=== PATIENT | female | born 1940 | race Caucasian/White ===

== ENCOUNTER 2020-09-16 21:13 | Inpatient (IN) | payer MEDICARE, SELFPAY ==
[2020-09-16] VITALS (10 sets, daily range): BP systolic 133–170; BP diastolic 62–72; PULSE 75–85; RESP 12–31; TEMP 36.7–36.9; O2SAT 95–97
--- NOTE | ~2020-09-16 | US_ITS ---
EXAMINATION: US venous doppler [facility] DATE: 09/18/2020 15:30 INDICATION: Chest pain. TECHNIQUE: Grayscale ultrasound images without and with compression and Doppler ultrasound images of the bilateral lower extremity veins were obtained. COMPARISON: None. FINDINGS: The visualized portions of right common femoral vein, profunda (deep) femoral vein, femoral vein, pop liteal vein, peroneal veins, posterior tibial veins, and greater saphenous vein outflow are patent. The visualized portions of left common femoral vein, profunda femoral vein, femoral vein, popliteal v ein, peroneal veins, posterior tibial veins, and greater saphenous vein outflow are patent. IMPRESSION: 1. No deep venous thrombosis. Reviewed, dictated and finalized at location A. E ASSOCIATE
--- NOTE | ~2020-09-16 | CT_ITS ---
EXAMINATION: CTA chest PE protocol DATE: 09/17/2020 14:19 PATROL INSPECTOR INDICATION: Shortness of breath TECHNIQUE: Computed tomographic angiography (CTA) of the chest was performed with 100 mL Omnipaque-35 0 intravenous contrast. The dose-length product was 202.61 mGy-cm. Maximum intensity projection 3D-re constructions of the aorta and other arteries were constructed by the technologist on a separate work station. COMPARISON: No prior studies for comparison. . FINDINGS: There is pulmonary embolism of right lower lobe segmental and subsegmental pulmonary arteri es, small thrombus burden. Study is technically adequate. There is atherosclerosis. No thoracic lymph adenopathy. Heart size is normal. Small right pleural effusion. Cardiomegaly. There is peripheral wed ge-shaped consolidation at the pleural surface of the right lower lobe, consistent with pulmonary inf arct. There is lingular and left upper lobe atelectasis. Upper abdomen is unremarkable. Moderate thor acic spondylosis with chronic wedge compression deformity of the midthoracic vertebra. IMPRESSION: 1. Segmental and subsegmental pulmonary embolism of the right lower lobe with pulmonary infarction of the lateral basal segment, small thrombus burden. 2: Small pleural effusion. Dr. Glen Schaefer discussed with the patient's nurse Loren on third medical floor at 09/17/2020 14:22 PATROL INSPECTOR. Reviewed, dictated and finalized at location A. OL INSPECTOR IMPRESSION: 1. Segmental and subsegmental pulmonary embolism of the right lower lobe with p ulmonary infarction of the lateral basal segment, small thrombus burden. 2: Small pleural effusion. Dr. Glen Schaefer discussed with the patient's nurse Loren on third medical floor at 09/17/2020 14:22 PATROL INSPECTOR.
--- NOTE | ~2020-09-16 | CT_ITS ---
EXAMINATION: CT abdomen pelvis w con EXAM DATE: 09/16/2020 22:51 INDICATION: Right quadrant pain TECHNIQUE: Spiral CT of the abdomen and pelvis was performed following intravenous injection of 100 m L Omnipaque 350. Axial, coronal and sagittal images were reviewed. The dose-length product (DLP) fo r this examination was 357.76 mGy-cm. The exposure was tailored according to patient size (auto mA e xposure control), and iterative reconstruction (ASIR) was used as additional dose reduction technique . Comparison is made to prior examination from 07/24/2019. FINDINGS: The 1.5 cm splenic hypodensity unchanged compared to prior study, benign. The liver, splee n, adrenal glands and pancreas are otherwise unremarkable. Gallbladder is unremarkable. No biliary obstruction. Portal and splenic veins are patent. Kidneys enhance symmetrically. There is no hydro nephrosis. The uterus is not identified and has likely been surgically resected. The bladder is un remarkable. There is no retroperitoneal or pelvic lymphadenopathy. There is mild scattered arterio sclerotic disease. The appendix is normal. Small duodenal diverticulum. There is expected amount of colonic stool. N o free intraperitoneal gas. The heart is normal in size. There are no pericardial or pleural effus ions. There is subsegmental right lower lobe acute airspace disease, appearance most consistent with pneumonia. Left basilar subsegmental atelectasis. There are no osteoblastic or osteolytic lesions i dentified. The L5-S1 vertebral bodies are fused in grade 2 anterolisthesis with chronic bilateral L5 spondylolysis. IMPRESSION: 1. Right lower lobe subsegmental pneumonia. Appearance most consistent with bacterial etiology but pl ease clinically correlate. 2. Chronic findings. Reviewed, dictated and finalized at location A. FORCEMENT MAKER IMPRESSION: 1. Right lower lobe subsegmental pneumonia. Appearance most consistent with samuel terial etiology but please clinically correlate. 2. Chronic findings.
--- NOTE | ~2020-09-16 | XR_ITS ---
XR chest 1V portable 09/17/2020 00:43 Indication: Pleuritic chest pain Procedure: AP portable chest Comparison: Comparison to multiple prior studies sequentially, with oldest reviewed study dated 12/28. Findings: Heart size normal. There is dextroscoliosis of the thoracic spine. There are bibasilar infi ltrates which may represent atelectasis or developing pneumonia. No acute osseous abnormality. Impression: 1: Bibasilar infiltrates, atelectasis versus pneumonia. Reviewed, dictated and finalized at location A. BULANCE DRIVER PARAMEDIC Impression: 1: Bibasilar infiltrates, atelectasis versus pneumonia.
--- NOTE | 2020-09-16 21:31 | ECG_ITS ---
Measurements Intervals [place] Rate: 77 P: 57 PA: 156 QRS: 16 QRSD: 90 T: 56 QT: 414 QTc: 469 Interpretive Statements SINUS RHYTHM LOW QRS VOLTAGE IN PRECORDIAL LEADS BASELINE WANDER- I, II, AVR, AVL, V1, V4-V6 BORDERLINE ECG Electronically Signed On 09-17-2020 7:23:07 MILL ORDER SCHEDULER by Lloyd Fernandez D.O.
--- NOTE | 2020-09-16 21:37 | ED.GENADULT ---
HPI - General Adult General Chief complaint: Abdominal Pain Stated complaint: abd pain Time Seen by Provider: 09/16/20 21:28 Source: RN notes reviewed History of Present Illness HPI narrative: Patient presents emergency department from home via EMS for abdominal pain. Patient states she is been having intermittent pain in the right upper quadrant for the past 3 days it worsened this evening. Pain is described as sharp and stabbing and does not radiate. States it hurts to take a deep breath. She does not know anything makes pain better or worse she denies any fevers or chills chest pain shortness of breath nausea vomiting diarrhea or any other symptoms. She states she took Aleve at home for the pain this evening with minimal right Related Data Home Medications Medication Instructions Recorded Confirmed alprazolam 0.25 mg PO DAILY 07/24/19 aspirin [Ecotrin Low Strength] 81 mg PO DAILY 07/24/19 atenolol 25 mg PO DAILY 07/24/19 meclizine 25 mg tablet 25 mg PO TID 08/03/19 Allergies Allergy/AdvReac Type Severity Reaction Status Date / Time No Known Allergies Allergy Mild Verified 08/03/19 13:20 Review of Systems Review of Systems: Narrative: Gen.: Denies fevers or chills ENT: Denies congestion Respiratory: Denies shortness of breath or cough CV: Denies chest pain or palpitations GI: See HPI denies burning, urgency, frequency or hematuria Musculoskeletal: Denies back pain or muscle pain Neuro: Denies numbness, tingling, weakness or focal weakness Skin: Denies rash Except as documented, all other systems reviewed and negative [facility] Past Medical History Medical History Ankle fracture Anxiety Arthritis Atrial fibrillation Cataracts, bilateral Degenerative, intervertebral disc, cervical Depression HTN (hypertension) Kidney stone MAICO on CPAP Pancreatitis Skin cancer Surgical History Surgical History H/O breast biopsy H/O: hysterectomy History of appendectomy Status post ORIF of fracture of ankle Rt Family History Family History Mother Family history of malignant neoplasm of ovary Social History Social History Smoking status: Never smoker Alcohol intake: never Gender identity (if verbalized by the patient): Female Exam Narrative: Exam Narrative: APPEARANCE: No acute distress, nontoxic, resting in bed HEENT: Normocephalic, atraumatic, OMM RESPIRATORY: No respiratory distress, clear to auscultation bilaterally with no rhonchi wheezing or rales CARDIOVASCULAR: RRR s murmur ABDOMINAL: Soft, nondistended, tender palpation right upper quadrant no tenderness left lower quadrant left lower quadrant and right lower quadrant no rebound or guarding MUSCULOSKELETAl: Moves all extremities. No clubbing, cyanosis or edema. NEURO: Awake and alert. Following commands, speech normal, no focal deficits SKIN:: Warm, dry. Normal Color PSYCHIATRIC: Normal affect/mood Course Course Emergency Course: Patient continues have pain in the right side will give morphine at this time Called and discussed with Dr. Sandoval presentation work-up agrees with admission at this time. He is with plan for Covid swab Discussed with patient and family results of workup and diagnosis. Discussed need for admission. Patient and family understand and agree to current treatment plan Vital Signs Vital signs: Vital Signs Temperature 98.4 F 09/16/20 21:19 Pulse Rate 76 09/16/20 21:19 Respiratory Rate 20 09/16/20 21:19 Blood Pressure 170/72 H 09/16/20 21:19 Pulse Oximetry 97 09/16/20 21:19 Temperature 98.4 F 09/16/20 21:19 Pulse Rate 75 09/16/20 22:31 Respiratory Rate 25 H 09/16/20 22:31 Blood Pressure 133/62 09/16/20 22:30 Pulse Oximetry 95 09/16/20 22:30 Medical Decision Making Vital
[2020-09-16 22:05] LABS: Basophils Percent Auto 0.5 % (0.2-1.2); Eosinophils Absolute Auto 0.3 K/mm3 (0-0.3); Eosinophils Percent Auto 3.8 % (0-4.4); Hematocrit 37.5 % (37.0-47.0); Hemoglobin 12.6 g/dL (12.0-15.0); Immature Granulocyte Absolute 0.02 K/mm3 (0.00-0.031); Immature Granulocyte Percent A 0.3 % (0-0.5); Lymphocytes Absolute Auto 1.58 K/mm3 (0.9-3.2); Lymphocytes Percent Auto 24.3 % (18.3-44.2); Mean Corpuscular HGB Conc 33.6 g/dl (32-36); Mean Corpuscular Hemoglobin 31.3 pg (26-34); Mean Corpuscular Volume 93.3 fl (80-100); Mean Platelet Volume 9.9 fl (7.4-10.4); Monocytes Absolute Auto 0.5 K/mm3 (0.1-0.6); Monocytes Percent Auto 7.7 % (2.6-8.5); Neutrophils Absolute Auto 4.1 K/mm3 (1.3-6.7); Neutrophils Percent Auto 63.4 % (45.5-73.1); Platelet Count Result 228 k/mm3 (150-375); Red Blood Count 4.02 M/mm3 (4.2-5.4); Red Cell Distribution Width 11.9 % (11.5-14.5); White Blood Count 6.5 K/mm3 (4.5-10.0)
[2020-09-16 22:13] LABS: Partial Thromboplastin Time 29.2 SECONDS (22.3-36.8); Prothrombin Time 13.9 Seconds (11.1-14.7)
[2020-09-16 22:15] LABS: Alanine Aminotransferase 17 U/L (4-35); Alkaline Phosphatase 104 U/L (38-126); Anion Gap 7 mmol/L (8-16); Aspartate Amino Transferase 30 U/L (14-36); Bilirubin,Total 0.4 mg/dL (0.2-1.3); Blood Urea Nitrogen 29 mg/dL (7-17); Calcium 9.4 mg/dL (8.4-10.2); Carbon Dioxide 29 mmol/L (22-30); Chloride 105 mmol/L (98-107); Estimated CRCL calculation 40 ml/min; Estimated Glomerular Filt Rate > 60; Glucose 125 mg/dL (65-105); Lipase 252 U/L (23-300); Sodium 141 mmol/L (137-145)
[2020-09-16] MEDS: SODIUM CHLORIDE 0.9% IV 1,000 ML 999 ML IV CONT (22:25)
[2020-09-16 22:41] LABS: Add Urine Microscopic? YES; Appearance Urine Cloudy (Clear); Bilirubin Urine Negative (Negative); Color Urine Yellow (Yellow); Glucose Urine UA Negative (Negative); Ketones Urine Negative (Negative); Leukocyte Esterase Ur 3+ LEU/UL (Negative); Mucus Urine Rare /lpf; Nitrate Urine Negative (Negative); Protein Urine Negative (Negative); Specific Grav Ur 1.027 (1.001-1.035); Squamous Epithelial Cell Urine Few /hpf (Few); Urobilinogen Urine Negative mg/dL (<2.0); WBC Urine >75 /hpf
[2020-09-16 22:42] LABS: Blood Urine Negative (Negative)
[2020-09-16 23:53] LABS: Lactic Acid Reflex 1.1 mmol/L (0.7-2.1)
[2020-09-17] VITALS (11 sets, daily range): BP systolic 111–146; BP diastolic 48–70; PULSE 77–86; RESP 16–28; TEMP 36.3–36.7; O2SAT 94–98; BMI 26.0
[2020-09-17] MEDS: MORPHINE SULFATE (*CRX) 2 MG/ML INJ 1 MG IV PUSH (01:01)
[2020-09-17] MEDS: ONDANSETRON INJ 4 MG/2 ML VIAL IV PUSH (02:21)
--- NOTE | 2020-09-17 03:14 | ADMGEN ---
This patient, Opal Denson, was admitted to 3 [facility] Surg Room 305-01. Patient/family oriented to hospital policies and general routines including ID bracelet, bed and alarms, visiting hours, pain management, procedures, bathroom and other care routines, personal items, smoking policy, room service/diet, and visiting hours. Information on how to activate the Rapid Response Team has been discussed. Patient/Family are encouraged to report perceived risks to care and to ask questions if they do not understand what they are told or what they should do.
[2020-09-17] MEDS: SODIUM CHLORIDE 0.9% IV 1,000 ML 80 ML IV CONT ×2 (03:25→15:39)
[2020-09-17] MEDS: ALBUTEROL SULFATE (*SP) AEROSOL 1 PUFF 2 PUFF INHALATION ×3 (09:20→20:20)
--- NOTE | 2020-09-17 10:05 | PM.IMHP ---
H&P: HPI History of Present Illness Date/Time: 09/17/20 10:05 Chief Complaint: Chest pain Narrative: Opal Denson is a 80 year old female with a history of dementia, GERD, palpitations, who presented to the ER from home by EMS for right lower chest pain, right upper abdomen with a constant dull pain, with intermittent sharp stabbing pain with deep inspiration for about 1 week. The patients daughter, Susan, states about 1-1.5 weeks ago reported pain to right lower chest wall or right upper quadrant and some SOB. Then, pain resolved until last night when she complained about it again. She reported pain last night under right breast with some shortness of breath and felt like a sharp stabbing pain. Daughter called 911. Daughter has noticed SOB with exertion. She has been more immobile and not very active. Patient's daughter denies any confusion but states she has been more irritable lately. Patient does report feeling fatigued. The patient herself complains of the discomfort, but denies any nausea, vomiting, abdominal pain, diarrhea, fever, chills, weakness, leg swelling, calf pain, headache, dizziness, lightheadedness, urinary symptoms, or any other symptoms at this time. Initial vitals Temperature of 98.4?, heart rate 76, respiratory rate 20, blood pressure 170/72, oxygen saturation 97% on room air. Initial labs showed normal CBC with differential, normal coag panel, normal CMP, normal lipase, urinalysis does show cloudy urine with 3+ leukocyte esterase, WBCs greater than 75 consistent with possible UTI. CT abdomen pelvis shows right lower lobe subsegmental pneumonia. Appearance most consistent with bacterial etiology. She was admitted in the hospital for community-acquired pneumonia, urinary tract infection, on IV antibiotics. Code status: Full Code POA: Susan Means PCP:Dr. Rodriguez Review of Systems Review of Systems: All systems reviewed & are unremarkable except as noted in HPI and below PMFSH Past Medical History Medical History Ankle fracture Anxiety Arthritis Atrial fibrillation Cataracts, bilateral Degenerative, intervertebral disc, cervical Depression HTN (hypertension) Kidney stone MAICO on CPAP Pancreatitis Skin cancer Surgical History Surgical History H/O breast biopsy H/O: hysterectomy History of appendectomy Status post ORIF of fracture of ankle Rt Family History Family History Mother Family history of malignant neoplasm of ovary Social History Social History Smoking status: Never smoker Alcohol intake: never Substance use: never Living arrangements: alone Additional living arrangements comments: DaughteruSsan, lives close and is there from 2-8pm daily with other family checking on her throughout the day. Occupation/Education: retired Gender identity (if verbalized by the patient): Female Spiritual care concerns: No Meds Home Medications and Allergies Home Medications Medication Instructions Recorded Confirmed Type aspirin [Ecotrin Low Strength] 81 mg PO DAILY 07/24/19 09/17/20 History atenolol 25 mg PO DAILY 07/24/19 09/17/20 History meclizine 25 mg tablet 25 mg PO TID 08/03/19 09/17/20 History donepezil 10 mg tablet 10 mg PO HS #30 tablet 05/09/20 09/17/20 Rx mirtazapine 15 mg tablet 15 mg PO DAILY #30 tablet 05/09/20 09/17/20 Rx memantine 28 mg capsule 28 mg PO DAILY #30 each 08/09/20 09/17/20 Rx sprinkle,extended release 24hr omeprazole 20 mg capsule,delayed 20 mg PO DAILY #30 cap 08/09/20 09/17/20 Rx release sertraline 100 mg tablet 100 mg PO DAILY #30 tablet 08/09/20 09/17/20 Rx Allergies Allergy/AdvReac Type Severity Reaction Status Date / Time No Known Allergies Allergy Mild Verified 08/03/19 13:20 Vital Si
[2020-09-17] MEDS: PANTOPRAZOLE 40 MG TABLET PO (12:10)
[2020-09-17] MEDS: MECLIZINE HCL 25 MG TABLET PO ×2 (12:10→17:57)
[2020-09-17] MEDS: HYDROcodone/acetaminophen (*CRX) 5-325 MG TABLET 1 TAB PO (15:38)
[2020-09-17] MEDS: ENOXAPARIN 60 MG/0.6 ML SYRINGE SUB-Q (17:56)
[2020-09-17 19:31] LABS: SARS-CoV-2 RNA PCR Negative
[2020-09-17] MEDS: guaiFENesin 12 HR 600 MG TABCR PO (20:18)
[2020-09-17] MEDS: DONEPEZIL HCL 10 MG TABLET PO (20:18)
[2020-09-18] VITALS (7 sets, daily range): BP systolic 133–158; BP diastolic 68–74; PULSE 69–87; RESP 16–20; TEMP 36.4–37; O2SAT 94–97
[2020-09-18] MEDS: ALBUTEROL SULFATE (*SP) AEROSOL 1 PUFF 2 PUFF INHALATION ×4 (02:00→20:17)
[2020-09-18] MEDS: ENOXAPARIN 60 MG/0.6 ML SYRINGE SUB-Q ×2 (05:07→17:28)
[2020-09-18] MEDS: SODIUM CHLORIDE 0.9% IV 1,000 ML 80 ML IV CONT (05:07)
[2020-09-18 06:42] LABS: Basophils Percent Auto 0.8 % (0.2-1.2); Eosinophils Absolute Auto 0.3 K/mm3 (0-0.3); Eosinophils Percent Auto 6.5 % (0-4.4); Hematocrit 34.6 % (37.0-47.0); Hemoglobin 11.4 g/dL (12.0-15.0); Immature Granulocyte Absolute 0.02 K/mm3 (0.00-0.031); Immature Granulocyte Percent A 0.4 % (0-0.5); Lymphocytes Percent Auto 31.7 % (18.3-44.2); Mean Corpuscular HGB Conc 32.9 g/dl (32-36); Mean Corpuscular Hemoglobin 31.7 pg (26-34); Mean Corpuscular Volume 96.1 fl (80-100); Monocytes Absolute Auto 0.4 K/mm3 (0.1-0.6); Monocytes Percent Auto 8.5 % (2.6-8.5); Neutrophils Absolute Auto 2.6 K/mm3 (1.3-6.7); Neutrophils Percent Auto 52.1 % (45.5-73.1); Platelet Count Result 197 k/mm3 (150-375); Red Cell Distribution Width 11.9 % (11.5-14.5); White Blood Count 5.1 K/mm3 (4.5-10.0)
[2020-09-18 07:09] LABS: Alanine Aminotransferase 16 U/L (4-35); Albumin Level 3.3 g/dL (3.5-5.1); Alkaline Phosphatase 89 U/L (38-126); Anion Gap 6 mmol/L (8-16); Aspartate Amino Transferase 30 U/L (14-36); Bilirubin,Total 0.5 mg/dL (0.2-1.3); Blood Urea Nitrogen 12 mg/dL (7-17); Calcium 8.7 mg/dL (8.4-10.2); Carbon Dioxide 28 mmol/L (22-30); Chloride 108 mmol/L (98-107); Estimated CRCL calculation 52 ml/min; Estimated Glomerular Filt Rate > 60; Glucose 91 mg/dL (65-105); Potassium 3.7 mmol/L (3.4-5.0); Sodium 142 mmol/L (137-145)
[2020-09-18] MEDS: ASPIRIN 81 MG ENTERIC TABLET PO (08:45)
[2020-09-18] MEDS: MECLIZINE HCL 25 MG TABLET PO ×3 (08:46→17:27)
[2020-09-18] MEDS: SERTRALINE HCL 50 MG TABLET 100 MG PO (08:46)
[2020-09-18] MEDS: MIRTAZAPINE 15 MG TABLET PO (08:46)
[2020-09-18] MEDS: guaiFENesin 12 HR 600 MG TABCR PO (08:46)
[2020-09-18] MEDS: PANTOPRAZOLE 40 MG TABLET PO (08:46)
[2020-09-18] MEDS: atenoloL 25 MG TABLET PO (08:46)
[2020-09-18] MEDS: MEMANTINE HCL XR 28 MG CAP PO (08:49)
--- NOTE | 2020-09-18 13:41 | PM.IMPN ---
Progress Note: A&P Assessment and Plan (1) Pulmonary embolism: Code(s): I26.99 - Other pulmonary embolism without acute cor pulmonale Status: Acute Assessment and Plan: Patient had come in with pleuritic chest pain or shortness of breath. CT of her abdomen showed possible bacterial pneumonia to right lower lobe. CTA of her chest was completed due to pleuritic pain and show she has a segmental and subsegmental pulmonary embolism of the right lower lobe with pulmonary infarction of the lateral basal segment, small thrombus burden. No signs of pneumonia on CTA. IV antibiotics were discontinued. She was started on subcu Lovenox 60 mg Q 12 hours for treatment of acute PE. \ She will be placed on Eliquis upon discharge In the meantime will monitor telemetry to rule out atrial fibrillation Get venous Dopplers bilaterally to rule out DVT Order an echocardiogram Continue monitoring. (2) Pleurisy: Code(s): R09.1 - Pleurisy Status: Acute Assessment and Plan: Right lower pleuritic chest pain. Patient has been immobile and family states she has been more dyspneic with exertion. CTA showed PE. Will continue anticoagulation which should improve her pleuritic chest pain. Tylenol or Scurry p.r.n. for pain while here (3) HTN (hypertension): Code(s): I10 - Essential (primary) hypertension Status: Acute Assessment and Plan: Patient's blood pressure has been slightly elevated since arrival. Blood pressure this morning was 154/71. Continue home medications. Could be elevated secondary to pain and stress to being hospitalized. Time Spent With Patient Time with patient: 25 - 35 minutes Subjective Date/time seen: 09/18/20 13:41 Interval history: Date of service 09/18/2020: She denies any issues at this time other than pain to her right chest with taking a deep breath. She denies any shortness of breath at rest but does have some exertional dyspnea. She denies any fevers, chills, nausea, vomiting, abdominal pain, leg swelling, calf pain, cough, urinary symptoms or any other symptoms at this time. Patient does have some underlying dementia but otherwise fairly good historian. Review of Systems Review of Systems: ROS unobtainable: Yes unobtainable due to medical condition Exam Narrative: Exam Narrative: General: 80-year-old woman sitting up in bed just finished lunch. Appears comfortable. In no acute distress. Skin: No jaundice or cyanosis. Good skin turgor. Neck: Full range of motion. Supple. Respiratory: Tenderness to palpation of right chest wall and under right breast. Patient winces in pain with deep inspiration and hold her right chest. Rhonchi noted to right lower lung field. No wheezing, noted. No bony chest wall tenderness. Cardiovascular: The heart has a regular rate and rhythm without murmur. Lower extremities: No lower extremity edema. Distal pulses are easily palpated. No calf tenderness to palpation. Gastrointestinal: The abdomen is soft, nontender and nondistended with active bowel sounds. Psychiatric: Confused. Neurologic: Alert and oriented to self and place. She is unsure of the year, president and forgot that her birthday was yesterday. No focal deficits. Speech is clear. No facial drooping. Objective Data Vital Signs Vital Signs: Vital Signs - 24 hr 09/17/20 16:00 09/17/20 20:00 09/18/20 00:00 Temperature 97.6 F 98.1 F 97.5 F L Pulse Rate 85 83 87 Respiratory Rate 20 18 16 Blood Pressure 139/63 131/48 L 134/70 Pulse Oximetry 97 94 95 09/18/20 04:00 09/18/20 08:46 Temperature 97.7 F Pulse Rate 76 76 Respiratory Rate 16 Blood Pressure 154/71 H Pulse Oximetry 94 Intake/Output Intake/Output: Intake & Output 09/15/20 09/16/20 09/17/20 09/18/20 23:59 23:59 23:59 23:59 Intake Total
[2020-09-18] MEDS: HYDROcodone/acetaminophen (*CRX) 5-325 MG TABLET 1 TAB PO (13:49)
[2020-09-18] MEDS: DONEPEZIL HCL 10 MG TABLET PO (20:13)
[2020-09-19] VITALS: PULSE 83
[2020-09-19] MEDS: ALBUTEROL SULFATE (*SP) AEROSOL 1 PUFF 2 PUFF INHALATION ×2 (03:08→09:43)
[2020-09-19 04:00] VITALS: PULSE 89
[2020-09-19] MEDS: ENOXAPARIN 60 MG/0.6 ML SYRINGE SUB-Q (05:54)
[2020-09-19 06:00] VITALS: BP 151/68; PULSE 67; RESP 18; TEMP 36.7; O2SAT 95
[2020-09-19 06:45] LABS: Hematocrit 34.2 % (37.0-47.0); Hemoglobin 11.6 g/dL (12.0-15.0); Mean Corpuscular HGB Conc 33.9 g/dl (32-36); Mean Corpuscular Hemoglobin 31.7 pg (26-34); Mean Corpuscular Volume 93.4 fl (80-100); Mean Platelet Volume 9.9 fl (7.4-10.4); Platelet Count Result 217 k/mm3 (150-375); Red Blood Count 3.66 M/mm3 (4.2-5.4); Red Cell Distribution Width 11.8 % (11.5-14.5); White Blood Count 5.2 K/mm3 (4.5-10.0)
[2020-09-19 07:00] LABS: Anion Gap 3 mmol/L (8-16); Blood Urea Nitrogen 11 mg/dL (7-17); Calcium 9.3 mg/dL (8.4-10.2); Carbon Dioxide 30 mmol/L (22-30); Chloride 107 mmol/L (98-107); Estimated CRCL calculation 45 ml/min; Estimated Glomerular Filt Rate > 60; Glucose 97 mg/dL (65-105); Potassium 3.8 mmol/L (3.4-5.0); Sodium 140 mmol/L (137-145)
[2020-09-19 08:00] VITALS: PULSE 74
[2020-09-19 09:43] VITALS: PULSE 67
[2020-09-19] MEDS: SERTRALINE HCL 50 MG TABLET 100 MG PO (09:43)
[2020-09-19] MEDS: atenoloL 25 MG TABLET PO (09:43)
[2020-09-19] MEDS: ASPIRIN 81 MG ENTERIC TABLET PO (09:44)
[2020-09-19] MEDS: PANTOPRAZOLE 40 MG TABLET PO (09:44)
[2020-09-19] MEDS: MECLIZINE HCL 25 MG TABLET PO (09:44)
[2020-09-19] MEDS: MEMANTINE HCL XR 28 MG CAP PO (09:44)
[2020-09-19] MEDS: MIRTAZAPINE 15 MG TABLET PO (09:44)
--- NOTE | 2020-09-19 10:56 | PM.DS ---
DS: Admitting Diagnosis Admitting Diagnosis Admitting Diagnosis: Chest pain DS: Discharge Diagnosis Discharge Diagnosis (1) Pulmonary embolism: Code(s): I26.99 - Other pulmonary embolism without acute cor pulmonale Status: Acute Assessment and Plan: Patient had come in with pleuritic chest pain or shortness of breath. CT of her abdomen showed possible bacterial pneumonia to right lower lobe. CTA of her chest was completed due to pleuritic pain and show she has a segmental and subsegmental pulmonary embolism of the right lower lobe with pulmonary infarction of the lateral basal segment, small thrombus burden. No signs of pneumonia on CTA. IV antibiotics were discontinued. She was started on subcu Lovenox 60 mg Q 12 hours for treatment of acute PE. She will be placed on Eliquis upon discharge Telemetry showed no arrhythmia Venous Dopplers negative Echocardiogram was not completed, there was no right heart strain. Stable, on room air with no chest pain at this time. (2) Pleurisy: Code(s): R09.1 - Pleurisy Status: Acute Assessment and Plan: Right lower pleuritic chest pain. Patient has been immobile and family states she has been more dyspneic with exertion. CTA showed PE. Resolved Tylenol for pain at home. (3) HTN (hypertension): Code(s): I10 - Essential (primary) hypertension Status: Acute Assessment and Plan: Patient's blood pressure has been slightly elevated since arrival. Blood pressure this morning was 151/68. Continue home medications. Could be elevated secondary to pain and stress to being hospitalized. DS: Summary Hospital Course Hospital Course: Opal Denson is a 80 year old female with a history of dementia, GERD, palpitations, who presented to the ER from home by EMS for right lower chest pain, right upper abdomen with a constant dull pain, with intermittent sharp stabbing pain with deep inspiration for about 1 week. Initial vitals Temperature of 98.4?, heart rate 76, respiratory rate 20, blood pressure 170/72, oxygen saturation 97% on room air. Initial labs showed normal CBC with differential, normal coag panel, normal CMP, normal lipase, urinalysis does show cloudy urine with 3+ leukocyte esterase, WBCs greater than 75 consistent with possible UTI. CT abdomen pelvis shows right lower lobe subsegmental pneumonia. Appearance most consistent with bacterial etiology. She was admitted in the hospital for community-acquired pneumonia vs urinary tract infection, on IV antibiotics. A CTA Chest showed she had segmental and subsegmental pulmonary embolism of the right lower lobe with pulmonary infarction of the lateral basal segment, small thrombus burden. Small pleural effusion. IV Antibiotics were discontinued and she was treated for acute PE. Work up completed, showing no arrthymia on tele, venous dopplers negative. Placed on Eliquis at discharge and instructed to follow up with PCP. Status at Discharge Cognitive/behavioral status at discharge: Stable, improved. Time Spent with Patient Time attestation: Total time spent providing and/or coordinating discharge services: 37 Time spent: Greater than 30 minutes Exam Narrative: Exam Narrative: General: 80-year-old woman sitting up in bed just finished lunch. Appears comfortable. In no acute distress. Skin: No jaundice or cyanosis. Good skin turgor. Neck: Full range of motion. Supple. Respiratory: Tenderness to palpation of right chest wall and under right breast. Patient winces in pain with deep inspiration and hold her right chest. Rhonchi noted to right lower lung field. No wheezing, noted. No bony chest wall tenderness. Cardiovascular: The heart has a regular rate and rhythm without murmur. Lower extremities:
--- NOTE | 2020-09-22 14:00 | PC.NURSE ---
BLood cx no growth.
== END 2020-09-19 13:01 | disposition home or self-care (01) | DRG 176 ==
LOC: ANHED 09-17 00:48 → ANH3MEDSUR 09-17 02:03
PROVIDERS: Physician Assistant; Admitting Provider Family Medicine; Emergency Provider Emergency Medicine; PCP Family Medicine; Visit Provider Family Medicine
DX: I26.99 Other pulmonary embolism without acute cor pulmonale (principal); I48.20 Chronic atrial fibrillation, unspecified; R09.1 Pleurisy; Z20.822 Contact with and (suspected) exposure to COVID-19; I10 Essential (primary) hypertension; F41.8 Other specified anxiety disorders; M50.30 Other cervical disc degeneration, unspecified cervical region; G47.33 Obstructive sleep apnea (adult) (pediatric); K21.9 Gastro-esophageal reflux disease without esophagitis; F03.90 Unspecified dementia, unspecified severity, without behavioral disturbance, psychotic disturbance, mood disturbance, and anxiety; M19.90 Unspecified osteoarthritis, unspecified site; Z85.828 Personal history of other malignant neoplasm of skin; Z87.442 Personal history of urinary calculi; Z90.710 Acquired absence of both cervix and uterus
CPT/HCPCS: 36415; 71045; 71275; 74177; 80048; 80053; 81001; 83605; 83690; 85025; 85027; 85610; 85730; 87040; 87086; 87088; 93005; 93970; 94640; 96361; 96365; 96367; 96372; 96375; 97161; 97165; 99285; A9270; C9803; G0378; J0131; J0456; J0696; J1650; J2270; J2405; J7030; Q9967; U0003

== ENCOUNTER 2020-11-11 20:44 | Emergency (ER) | payer MEDICARE, SELFPAY ==
--- NOTE | ~2020-11-11 | CT_ITS ---
EXAMINATION: CT brain wo con INDICATION: Head injury COMPARISON: 10/20/2006 TECHNIQUE: Standard unenhanced head CT. The dose-length product (DLP) was 605.33 mGy-cm. The mA was a djusted according to patient size. Iterative reconstruction technique was employed. FINDINGS: There is no acute intraparenchymal hemorrhage. No evidence of mass lesion. No evidence of a cute infarction. There is moderate periventricular and subcortical hypodensity probably related to sm all vessel ischemic disease. There is moderate prominence of the sulci and ventricles related to cere bral atrophy. Intracranial calcified cerebral atherosclerosis is noted. There are no extra-axial radha ections. There is no mass effect or midline shift. Changes in the globes are likely from ocular lens surgery. The visualized sinuses and mastoid air cells are well aerated. IMPRESSION: 1. No acute intracranial abnormality. 2. Age related findings. Reviewed, dictated and finalized at location A. PROGRAMMER
[2020-11-11 20:47] VITALS: BP 145/64; PULSE 62; RESP 17; TEMP 36.4; O2SAT 97
[2020-11-11] MEDS: ACETAMINOPHEN 500 MG TABLET 1000 MG PO (21:03)
[2020-11-11] MEDS: LIDO 1%/EPINEPHRINE 1:100,000 20 ML VIAL INFILTRATE (21:30)
[2020-11-11 21:35] LABS: Basophils Absolute Auto 0.1 K/mm3 (0.0-0.1); Eosinophils Absolute Auto 0.2 K/mm3 (0-0.3); Eosinophils Percent Auto 4.2 % (0-4.4); Hemoglobin 11.8 g/dL (12.0-15.0); Immature Granulocyte Absolute 0.02 K/mm3 (0.00-0.031); Immature Granulocyte Percent A 0.3 % (0-0.5); Lymphocytes Absolute Auto 1.77 K/mm3 (0.9-3.2); Lymphocytes Percent Auto 30.6 % (18.3-44.2); Mean Corpuscular HGB Conc 32.8 g/dl (32-36); Mean Corpuscular Hemoglobin 31.1 pg (26-34); Mean Platelet Volume 10.3 fl (7.4-10.4); Monocytes Absolute Auto 0.5 K/mm3 (0.1-0.6); Monocytes Percent Auto 8.3 % (2.6-8.5); Neutrophils Absolute Auto 3.2 K/mm3 (1.3-6.7); Neutrophils Percent Auto 55.6 % (45.5-73.1); Platelet Count Result 231 k/mm3 (150-375); Red Blood Count 3.79 M/mm3 (4.2-5.4); Red Cell Distribution Width 12.3 % (11.5-14.5); White Blood Count 5.8 K/mm3 (4.5-10.0)
[2020-11-11 21:46] LABS: Anion Gap 7 mmol/L (8-16); Blood Urea Nitrogen 24 mg/dL (7-17); Calcium 9.4 mg/dL (8.4-10.2); Carbon Dioxide 27 mmol/L (22-30); Chloride 106 mmol/L (98-107); Estimated Glomerular Filt Rate 60; Glucose 109 mg/dL (65-105); Potassium 4.5 mmol/L (3.4-5.0); Sodium 140 mmol/L (137-145)
--- NOTE | 2020-11-11 21:53 | ED.GENADULT ---
HPI - General Adult General Chief complaint: Syncope <Souleymane Ruiz MD - Last Filed: 11/11/20 23:30> Stated complaint: syncope/ head lac <Souleymane Ruiz MD - Last Filed: 11/11/20 23:30> Time Seen by Provider: 11/11/20 20:53 <Souleymane Ruiz MD - Last Filed: 11/11/20 23:30> History of Present Illness HPI narrative: Patient is an 80-year-old female with history of dementia who presents after having a fall at home. She called her daughter after realizing that she is bleeding. Patient has a small laceration to the left forehead. Unknown LOC. Patient does take a blood thinner. <Souleymane Ruiz MD - Last Filed: 11/11/20 23:30> Related Data Home medications: Home Medications Medication Instructions Recorded Confirmed aspirin [Ecotrin Low Strength] 81 mg PO DAILY 07/24/19 09/17/20 atenolol 25 mg PO DAILY 07/24/19 09/17/20 meclizine 25 mg tablet 25 mg PO TID 08/03/19 09/17/20 <Souleymane Ruiz MD - Last Filed: 11/11/20 23:30> Allergies/adverse reactions: Allergies Allergy/AdvReac Type Severity Reaction Status Date / Time No Known Allergies Allergy Mild Verified 11/08/20 13:59 <Souleymane Ruiz MD - Last Filed: 11/11/20 23:30> Review of Systems Review of Systems: ROS unobtainable: Yes unobtainable due to mental status (Dementia) <Souleymane Ruiz MD - Last Filed: 11/11/20 23:30> [facility] Past Medical History Medical History: Medical History Ankle fracture Anxiety Arthritis Atrial fibrillation Cataracts, bilateral Degenerative, intervertebral disc, cervical Depression HTN (hypertension) Kidney stone MAICO on CPAP Pancreatitis Skin cancer <Souleymane Ruiz MD - Last Filed: 11/11/20 23:30> Surgical History Surgical History: Surgical History H/O breast biopsy H/O: hysterectomy History of appendectomy Status post ORIF of fracture of ankle Rt <Souleymane Ruiz MD - Last Filed: 11/11/20 23:30> Family History Family History: Family History Mother Family history of malignant neoplasm of ovary <Souleymane Ruiz MD - Last Filed: 11/11/20 23:30> Social History Social History: Social History Smoking status: Never smoker Alcohol intake: never Substance use: never Additional living arrangements comments: Daughter, Susan, lives close and is there from 2-8pm daily with other family checking on her throughout the day. Gender identity (if verbalized by the patient): Female Spiritual care concerns: No <Souleymane Ruiz MD - Last Filed: 11/11/20 23:30> Exam Narrative: Exam Narrative: GENERAL: Well-appearing, well-nourished, and in no acute distress. HEAD: Normocephalic, 2 cm laceration left upper forehead, superficial, bleeding controlled. EYES: PERRL and EOMI. CHEST: Clear to auscultation. No respiratory distress. HEART: Regular rate and rhythm. Normal peripheral pulses. EXTREMITIES: Normal range of motion. No edema. SKIN: Warm, dry, no rash. NEURO: Alert and oriented x2. PSYCH: Normal mood and affect. <Souleymane Ruiz MD - Last Filed: 11/11/20 23:30> Course Course Emergency Course: Patient with UTI. Keflex here. Laceration repaired. Patient's daughter will be staying with her this evening. Discharge home. <Souleymane Ruiz MD - Last Filed: 11/11/20 23:30> Vital Signs Vital signs: Vital Signs Temperature 97.6 F 11/11/20 20:47 Pulse Rate 62 11/11/20 20:47 Respiratory Rate 17 11/11/20 20:47 Blood Pressure 145/64 H 11/11/20 20:47 Pulse Oximetry 97 11/11/20 20:47 Temperature 97.6 F 11/11/20 20:47 Pulse Rate 76 11/11/20 22:10 Respiratory Rate 17 11/11/20 20:47 Blood Pressure 111/60 11/11/20 22:10 Pulse Oximetry 97 11/11/20 20:47 <Souleymane Kurtz
[2020-11-11 22:00] VITALS: BP 117/66; PULSE 63
[2020-11-11 22:05] VITALS: BP 121/62; PULSE 64
[2020-11-11 22:10] VITALS: BP 111/60; PULSE 76
[2020-11-11 23:04] LABS: Add Urine Microscopic? YES; Appearance Urine Clear (Clear); Bilirubin Urine Negative (Negative); Color Urine Yellow (Yellow); Glucose Urine UA Negative (Negative); Ketones Urine Negative (Negative); Leukocyte Esterase Ur 2+ LEU/UL (Negative); Mucus Urine Rare /lpf; Nitrate Urine Negative (Negative); Protein Urine Negative (Negative); Specific Grav Ur 1.018 (1.001-1.035); Squamous Epithelial Cell Urine Rare /hpf (Few); Urobilinogen Urine Negative mg/dL (<2.0); WBC Urine 31-50 /hpf
[2020-11-11 23:12] LABS: Blood Urine Negative (Negative)
[2020-11-11 23:25] VITALS: BP 100/54; PULSE 64; RESP 20; O2SAT 98
[2020-11-11] MEDS: CEPHALEXIN 500 MG CAPSULE PO (23:45)
== END 2020-11-11 23:45 | disposition home or self-care (01) ==
PROVIDERS: Emergency Provider Emergency Medicine; PCP Family Medicine
DX: S01.81XA Laceration without foreign body of other part of head, initial encounter (principal); N39.0 Urinary tract infection, site not specified; Z79.82 Long term (current) use of aspirin; M19.90 Unspecified osteoarthritis, unspecified site; I48.91 Unspecified atrial fibrillation; M50.30 Other cervical disc degeneration, unspecified cervical region; I10 Essential (primary) hypertension; Z87.442 Personal history of urinary calculi; G47.33 Obstructive sleep apnea (adult) (pediatric); Z85.828 Personal history of other malignant neoplasm of skin; W19.XXXA Unspecified fall, initial encounter
CPT/HCPCS: 12011; 36415; 70450; 80048; 81001; 85025; 87086; 87088; 99284; A9270

== ENCOUNTER 2020-11-30 09:35 | Outpatient (CLI) | payer MEDICARE, SELFPAY ==
--- NOTE | 2020-11-30 10:13 | ECHO_ITS ---
Patient Info Name: Opal Denson Age: 80 years : 1940 Gender: Female Ht: 59 in Wt: 132 lbs BSA: 1.60 m2 HR: 74 bpm BP: 130 / 74 mmHg Technical Quality: Good Exam Date: 11/30/2020 10:21 AM Exam Location: [facility] Patient Status: Outpatient Admit Date: 11/30/2020 Staff Ordering Physician: Jenni Luis PAC Cloud Consultant: Kisha Abdul RDCS Attending Provider: Jenni Luis PAC Referring Physician: Toby MOSS; Exam Type: CA echo doppler color flow Study Info Indications - puilm embolism Complete two-dimensional, color flow and Doppler transthoracic echocardiogram is performed. Summary 1. Complete two-dimensional, color flow and Doppler transthoracic echocardiogram is performed. 2. Left ventricular chamber dimension is normal. 3. Left ventricular systolic function is normal, estimated at 65-70%. 4. The left ventricular diastolic function is grade I diastolic dysfunction. 5. E/e' 12 is mildly elevated. 6. There is trace tricuspid valve regurgitation. 7. No pulmonary hypertension, estimated pulmonary arterial systolic pressure is 25 mmHg. Left Ventricle E/e' 12 is mildly elevated. Left ventricular chamber dimension is normal. Left ventricular systolic function is normal, estimated at 65-70%. The left ventricular diastolic function is grade I diastolic dysfunction. Right Ventricle Right ventricular chamber dimension is normal. Right ventricular systolic function is normal. Left Atria Left atrial chamber dimension is normal. Right Atria Right atrial chamber dimension is normal. Aortic Valve The aortic valve is trileaflet. There is no aortic valve stenosis. There is no aortic valve regurgitation. Pulmonic Valve There is no pulmonic regurgitation. Mitral Valve There is no mitral valve stenosis. There is no mitral valve regurgitation. Tricuspid Valve There is trace tricuspid valve regurgitation. No pulmonary hypertension, estimated pulmonary arterial systolic pressure is 25 mmHg. Pericardium/Pleural There is no pericardial effusion. Inferior Vena Cava Normal inferior vena cava with >50% collapse upon inspiration consistent with normal right atrial pressure, 5 mmHg. Aorta The aortic root size at the sinus of Valsalva is normal. Left Ventricular Outflow Tract Name Value Normal LVOT 2D LVOT Diameter 2.0 cm LVOT Doppler LVOT Peak Gradient 4 mmHg LVOT Mean Gradient 2 mmHg LVOT VTI 22 cm LVOT VTI/AV VTI Ratio 1.0 LVOT Stroke Volume 67 ml LVOT CO 12.6 l/min LVOT CI 7.9 l/min/m2 Pulmonic Valve Name Value Normal PV Doppler PV Peak Gradient 1 mmHg Mitral Valve --
== END 2020-11-30 09:36 | disposition home or self-care (01) ==
LOC: ANHCARD 09:36
PROVIDERS: PCP Family Medicine; Visit Provider Physician Assistant Medical
DX: I26.99 Other pulmonary embolism without acute cor pulmonale (principal)
CPT/HCPCS: 93306

== ENCOUNTER 2021-02-01 12:30 | Outpatient (CLI) | payer MEDICARE, SELFPAY ==
[2021-02-01 12:50] VITALS: PULSE 66; O2SAT 96
[2021-02-01 12:55] VITALS: PULSE 104; O2SAT 93
[2021-02-01 13:15] VITALS: PULSE 74; O2SAT 95
--- NOTE | 2021-02-01 14:15 | HOMEO2EVAL ---
Evaluation was performed at [facility] Home Oxygen Evaluation RC: Home Oxygen (O2) Evaluation Start: 02/01/21 14:13 Freq: Status: Active Protocol: RPE Activity Type Activity Date Activity User E-Sign Co-Sign Detail Recorded Client Recorded Date Recorded By Document 02/01/21 12:50 DJO [id number] 02/01/21 14:15 DJO Document 02/01/21 12:55 [email or web address] [id number] 02/01/21 14:15 DJO Document 02/01/21 13:15 [email or web address] [email or web address] 02/01/21 14:15 DJO 02/01/21 02/01/21 02/01/21 12:50 12:55 13:15 Home O2 Evaluation Test Phase Resting Exercise Resting Oxygen Delivery Room Air Room Air Room Air Pulse Oximetry (90-100 %) 96 93 95 Pulse Rate (60-100 beats/min) 66 104 H 74 Activity Tolerance Good Rating of Perceived Dyspnea (PD) +1 Mild, Noticeable to the Participant but Not to an Observer Ambulation Distance (feet) 250 Treatment Charges O2 Evaluation - Outpatient
--- NOTE | 2021-02-01 16:55 | WPDPFTINT ---
PFT Procedure Performed PFT Procedure Performed Spirometry with Pre/Post Bronchodilator Plethysmography (Lung Vol) Diffusing Cap (DLCO) Flow Vol Loop PFT Interpretation This is a pulmonary function test with pre and post-bronchodilator spirometry, plethysmography and diffusing capacity. The test was performed and results interpreted in accordance with the 2019 and 2005 ATS/ERS Task Force guidelines respectively using the Global Lung Function Initiative-2012 reference equations. Patient demonstrated good effort and cooperation. Reproducibility criteria were met. The quality of the pre bronchodilator spirometry maneuver was Grade A and post bronchodilator spirometry maneuver was Grade A. the, made by the agricultural engineering technician stated that the patient has recently been having problems with dementia. Findings: Spirometry: the contour of the expiratory flow tracing is normal except in 1 of 4 pre bronchodilator efforts and 1 of 3 post bronchodilator efforts there is a double hump. the contour the inspiratory flow tracing is normal. The pre bronchodilator FVC is 1.65 L, 78% predicted. The pre bronchodilator FEV1 is 1.22 L, 75% predicted. The FEV1: FVC ratio 74%. The post bronchodilator FVC is 1.56 L, representing a 5% decrease. The post bronchodilator FEV1 is 1.19 L, representing a 2% decrease. Plethysmography: The total lung capacity is 4.68 L, 109% predicted. The functional residual capacity is 2.15 L, 87% predicted. The residual volume is 1.73 L, 81% predicted. Diffusing capacity: The absolute diffusion capacity is 14.9, 86% predicted. The diffusing capacity corrected for alveolar volume is 4.8 for, 111% predicted. Impression: The expiratory flow tracing demonstrates a double hump in 1 of 4 pre bronchodilator efforts and 1 of 3 post bronchodilator efforts which is characteristic of a variable obstruction at the thoracic inlet. This is believed to occur as the narrowing moves from an intrathoracic to a relative extrathoracic location towards the end of expiration. This pattern can be seen with tracheostomy scars or strictures that may be located at or above the suprasternal notch. In addition this pattern has been described in patient's with vocal cord dysfunction. Clinical correlation is recommended. Overall there is no evidence of an obstructive abnormality. There is no significant improvement after inhaling a single dose of albuterol. The lung volumes are normal. The diffusing capacity is normal. There are no prior studies for comparison
== END 2021-02-01 12:31 | disposition home or self-care (01) ==
PROVIDERS: PCP Family Medicine; Visit Provider Internal Medicine Pulmonary Disease
DX: R06.00 Dyspnea, unspecified (principal); R06.02 Shortness of breath
CPT/HCPCS: 94060; 94618; 94726; 94729

== ENCOUNTER 2021-02-09 14:42 | Outpatient (CLI) | payer MEDICARE, SELFPAY ==
--- NOTE | ~2021-02-09 | XR_ITS ---
EXAMINATION: XR ankle LT 2V, XR foot LT 2V DATE: 02/09/2021 15:08 INDICATION: Dorsal left foot and ankle pain TECHNIQUE: 1. Anteroposterior and lateral view of the left ankle were obtained. 2. Dorsoplantar and lateral views of the left foot were obtained. COMPARISON: None. FINDINGS: Alignment of the left foot and ankle is normal. No fracture or osteochondral lesion. Joint spaces are well maintained. No ankle joint effusion. Small plantar calcaneal spur. Tiny enthesopathic ossicle a t the distal Achilles tendon. The soft tissues are unremarkable. IMPRESSION: 1. No acute osseous abnormality no evident etiology for dorsal left foot and ankle pain. 2. Tiny enthesophyte and minimal enthesopathic ossification at the calcaneal insertion of the plantar aponeurosis and Achilles tendon respectively. Reviewed, dictated and finalized at location A. IMPRESSION: 1. No acute osseous abnormality no evident etiology for dorsal left foot and an kle pain. 2. Tiny enthesophyte and minimal enthesopathic ossification at the calcaneal in sertion of the plantar aponeurosis and Achilles tendon respectively.
== END 2021-02-09 14:43 | disposition home or self-care (01) ==
LOC: ANHIMG 14:49
PROVIDERS: PCP Family Medicine; Visit Provider Nurse Practitioner Family
DX: M79.672 Pain in left foot (principal)
CPT/HCPCS: 73600; 73620

== ENCOUNTER 2022-01-02 15:53 | Outpatient (CLI) | payer MEDICARE, SELFPAY ==
--- NOTE | ~2022-01-02 | XR_ITS ---
XR chest 2V DATE: 01/02/2022 16:12 INDICATION: Productive cough yielding green mucus. Bronchitis. TECHNIQUE: PA and lateral views COMPARISON: 09/27/2020 CT pulmonary scan 09/27/2020 portable AP chest FINDINGS: Normal heart size. Aortic arch calcification. No hilar or mediastinal enlargement. No pulmonary infiltrate or consolidation, pleural effusion or pulmonary vascular congestion or pneumo thorax. There is mild dextroscoliosis of the thoracic spine. Osteopenia. IMPRESSION: No active cardiopulmonary disease Aortic atherosclerosis Reviewed, dictated and finalized at location A.
== END 2022-01-02 15:54 | disposition home or self-care (01) ==
PROVIDERS: PCP Family Medicine; Visit Provider Nurse Practitioner Family
DX: J40 Bronchitis, not specified as acute or chronic (principal); I70.0 Atherosclerosis of aorta; M41.9 Scoliosis, unspecified
CPT/HCPCS: 71046

== ENCOUNTER 2022-04-25 12:26 | Outpatient (CLI) | payer MEDICARE, SELFPAY ==
--- NOTE | ~2022-04-25 | XR_ITS ---
XR chest 2V 04/25/2022 13:02 Indication: Productive cough with fever Procedure: 2 view chest Comparison: 01/02/2022 Findings: No acute focal pneumonia, edema, pleural effusion or pneumothorax. There is atherosclerosis of the aorta. Heart size normal. No acute osseous abnormality. Impression: 1: No acute cardiopulmonary disease. Reviewed, dictated and finalized at location B. Impression: 1: No acute cardiopulmonary disease.
== END 2022-04-25 12:27 | disposition home or self-care (01) ==
PROVIDERS: PCP Family Medicine; Visit Provider Nurse Practitioner Family
DX: R05.8 Other specified cough (principal)
CPT/HCPCS: 71046

== ENCOUNTER 2022-08-12 15:44 | Emergency (ER) | payer MEDICARE, SELFPAY ==
--- NOTE | ~2022-08-12 | CT_ITS ---
EXAMINATION: CT soft tissue neck w con DATE: 08/12/2022 18:41 INDICATION: TECHNIQUE: Computed tomography (CT) of the neck was performed with 75 mL Omnipaque-350 intravenous co ntrast. The dose-length product was 443.40 mGy-cm. COMPARISON: None FINDINGS: The thyroid gland is unremarkable. The submandibular and parotid glands are symmetric. Enlarged celia ateral palatine tonsils which are mostly obscured by dental artifact. Fluid and mucosal hyperemia in the nasopharynx. There is no cervical lymphadenopathy. There are no masses identified. Atherosclero tic calcification of the arch and proximal great vessels. The superior mediastinum is unremarkable. The airway is unremarkable. Parapharyngeal and pre-glottic fat planes are preserved. Calcified p laque at the left carotid bifurcation, without significant stenosis. The orbits are unremarkable. Mucosal thickening in the ethmoid air cells and bilateral maxillary sinuses. Aerated secretions in th e posterior ethmoid air cells and sphenoid sinus. Left upper lung peripheral granuloma/intrapulmonar y lymph node. Mild scattered areas of groundglass opacities in the upper lungs more evident in the le ft lung. There is cervical spondylosis. IMPRESSION: 1. Enlarged bilateral palatine tonsils, which are mostly obscured by dental artifact. Tonsillar absce ss cannot be excluded. 2. Paranasal sinus findings, with nasopharyngeal fluid and mucosal enhancement, may indicate presence of acute sinusitis in the appropriate clinical context. 3. Pulmonary opacities may reflect edema, atypical infection, or or bronchiolitis. Reviewed, dictated and finalized at location K. ITAL STAFF PHARMACIST IMPRESSION: 1. Enlarged bilateral palatine tonsils, which are mostly obscured by dental art ifact. Tonsillar abscess cannot be excluded. 2. Paranasal sinus findings, with nasopharyngeal fluid and mucosal enhancement, may indicate presence of acute sinusitis in the appropriate clinical context. 3. Pulmonary opacities may reflect edema, atypical infection, or or bronchiolit is.
[2022-08-12 15:47] VITALS: BP 113/67; PULSE 85; RESP 18; TEMP 36.7; O2SAT 97
--- NOTE | 2022-08-12 16:14 | ED.URI ---
HPI - URI/Sore Throat General Chief Complaint: Upper Respiratory Infection Stated Complaint: sore throat, shortness of breath, congestion Time Seen by Provider: 08/12/22 15:53 Source: patient and family Mode of arrival: ambulatory Limitations: no limitations History of Present Illness HPI Narrative: Patient is an 81-year-old female who presents ED with report of sore throat. Patient has a history of dementia. Family member at bedside assisted in providing information. Patient has had a sore throat, congestion, rhinorrhea, painful swallowing since Saturday afternoon. Denies any sick contacts. Denies fever, cough, trouble breathing, nausea, vomiting, BERNAL, myalgias. Family members concerned that patient may be dehydrated as she is avoiding swallowing as much as possible. Also concerned patient may have a urinary tract infection due to occasionally having increased confusion. Patient is incontinent. Related Data Home Medications Medication Instructions Recorded Confirmed atenolol 25 mg tablet 25 mg PO DAILY 07/24/19 06/05/22 Allergies Allergy/AdvReac Type Severity Reaction Status Date / Time No Known Allergies Allergy Mild Verified 06/05/22 11:12 Review of Systems Review of Systems: CONSTITUTIONAL: Denies fever, chills, or sweats. ENT: Reports rhinorrhea, congestion, sore throat, painful swallowing. CARDIOVASCULAR: Denies chest pain. RESPIRATORY: Denies cough or dyspnea. GASTROINTESTINAL: Denies abdominal pain, nausea, vomiting. MUSCULOSKELETAL: Denies myalgia. NEUROLOGIC: Denies headache. All systems reviewed & are unremarkable except as noted in HPI and below PMFSH Past Medical History Medical History Ankle fracture Anxiety Arthritis Atrial fibrillation BMI 24.0-24.9, adult BMI 26.0-26.9,adult Cataracts, bilateral Degenerative, intervertebral disc, cervical Depression HTN (hypertension) Kidney stone MAICO on CPAP Pancreatitis Skin cancer Surgical History Surgical History H/O breast biopsy H/O: hysterectomy History of appendectomy Status post ORIF of fracture of ankle Rt Family History Family History Mother Family history of malignant neoplasm of ovary Father Sibling Cerebrovascular accident Grandparent , cancer No problems noted. Social History Social History Smoking status: Former smoker Tobacco type: cigarettes Second hand tobacco smoke exposure: No Alcohol intake: never Substance use: never Substance use type: does not use Additional living arrangements comments: Daughter, Susan, lives close and is there from 2-8pm daily with other family checking on her throughout the day. Additional occupation/education comments: [employer]imated [employer]. Gender identity (if verbalized by the patient): Female Spiritual care concerns: No Exam Narrative: GENERAL: Well appearing, well-nourished, non-toxic, in no acute distress. HEAD: Normocephalic, atraumatic. EYES: PERRLA/EOMI, conjunctiva clear. ENT: Moderate posterior pharynx erythema, bilateral tonsillar hypertrophy, some scattered tonsillar exudate bilaterally. No asymmetry. Uvula midline. No distress, but patient has to use effort to swallow. Maintaining saliva. NECK: Supple. Bilateral tender anterior lymphadenopathy, no masses. RESPIRATORY: Airway patent, respirations nonlabored. Clear to auscultation bilaterally, no rales, rhonchi, wheezing. CARDIOVASCULAR: Regular rate and rhythm without murmurs, rubs, or gallops. Radial pulses 2+ and equal bilaterally. MUSCULOSKELETAL: Moves all extremities. Strength/ROM intact without gross deformities. SKIN: Warm, dry, normal color. No rashes. NEURO: Alert. Speech clear. Cranial nerves II-XII grossly intact. Steady gait. No gaby
[2022-08-12] MEDS: LIDOCAINE HCL 2% VISC SOLN 15 ML UDC PO (16:59)
[2022-08-12] MEDS: methylPREDNISolone SOD SUCC 125 MG VIAL IV PUSH (16:59)
[2022-08-12] MEDS: SODIUM CHLORIDE 0.9% IV 1,000 ML 999 ML IV CONT (16:59)
[2022-08-12 17:09] LABS: Basophils Absolute Auto 0.1 K/mm3 (0.0-0.1); Basophils Percent Auto 0.5 % (0.2-1.2); Eosinophils Absolute Auto 0.2 K/mm3 (0-0.3); Eosinophils Percent Auto 1.6 % (0-4.4); Hematocrit 41.1 % (37.0-47.0); Hemoglobin 13.6 g/dL (12.0-15.0); Immature Granulocyte Absolute 0.04 K/mm3 (0.00-0.031); Immature Granulocyte Percent A 0.4 % (0-0.5); Lymphocytes Absolute Auto 1.71 K/mm3 (0.9-3.2); Lymphocytes Percent Auto 16.1 % (18.3-44.2); Mean Corpuscular HGB Conc 33.1 g/dl (32-36); Mean Corpuscular Hemoglobin 31.1 pg (26-34); Mean Corpuscular Volume 93.8 fl (80-100); Mean Platelet Volume 10.1 fl (7.4-10.4); Monocytes Percent Auto 9.2 % (2.6-8.5); Neutrophils Absolute Auto 7.7 K/mm3 (1.3-6.7); Neutrophils Percent Auto 72.2 % (45.5-73.1); Platelet Count Result 245 k/mm3 (150-375); Red Blood Count 4.38 M/mm3 (4.2-5.4); Red Cell Distribution Width 12.8 % (11.5-14.5); White Blood Count 10.6 K/mm3 (4.5-10.0)
[2022-08-12 17:28] LABS: Influenza A QL RT-PCR Negative (Negative); Influenza B QL RT-PCR Negative (Negative); SARS-CoV-2 RNA PCR Negative
[2022-08-12 17:34] LABS: Appearance Urine Slightly Cloudy (Clear); Bilirubin Urine Negative (Negative); Blood Urine Negative (Negative); Color Urine Light Yellow (Yellow); Glucose Urine UA Negative (Negative); Ketones Urine Negative (Negative); Leukocyte Esterase Ur Trace LEU/UL (Negative); Nitrate Urine Negative (Negative); Protein Urine Negative (Negative); Specific Grav Ur <= 1.005 (1.001-1.035); Urobilinogen Urine 0.2 mg/dL (<2.0); pH Urine 5.5 (5.0-9.0)
[2022-08-12 17:37] LABS: Add Urine Microscopic? YES
[2022-08-12 17:38] LABS: RBC Urine 0-2 /hpf (0-2); Squamous Epithelial Cell Urine Few /hpf (Few); WBC Urine 0-3 /hpf (0-3)
[2022-08-12 17:39] LABS: Strep Group A RT-PCR NOT DETECTED (Negative)
[2022-08-12 17:39] LABS: Bacteria Urine Trace /hpf
[2022-08-12 18:03] LABS: Alanine Aminotransferase 18 U/L (6-35); Albumin Level 4.2 g/dL (3.5-5.1); Alkaline Phosphatase 101 U/L (38-126); Anion Gap 8 mmol/L (8-16); Aspartate Amino Transferase 25 U/L (14-36); Bilirubin,Total 0.7 mg/dL (0.2-1.3); Blood Urea Nitrogen 15 mg/dL (7-17); Calcium 8.9 mg/dL (8.4-10.2); Carbon Dioxide 26 mmol/L (22-30); Chloride 108 mmol/L (98-107); Estimated Glomerular Filt Rate 60; Glucose 97 mg/dL (65-110); Potassium 3.6 mmol/L (3.4-5.0); Sodium 142 mmol/L (137-145)
[2022-08-12] MEDS: AMPICILLIN SULB 3 GM/NS 100 ML 3 GM/100 ML VIAL IVPB (19:35)
[2022-08-12 20:12] VITALS: BP 135/61; PULSE 94; RESP 20; O2SAT 93
== END 2022-08-12 20:22 | disposition home or self-care (01) ==
PROVIDERS: Physician Assistant; PCP Family Medicine
DX: J03.90 Acute tonsillitis, unspecified (principal); Z20.822 Contact with and (suspected) exposure to COVID-19; F03.90 Unspecified dementia, unspecified severity, without behavioral disturbance, psychotic disturbance, mood disturbance, and anxiety; I48.91 Unspecified atrial fibrillation; I10 Essential (primary) hypertension; M19.90 Unspecified osteoarthritis, unspecified site; Z87.442 Personal history of urinary calculi; G47.33 Obstructive sleep apnea (adult) (pediatric); F41.9 Anxiety disorder, unspecified; F32.A Depression, unspecified; Z90.710 Acquired absence of both cervix and uterus; Z85.828 Personal history of other malignant neoplasm of skin; Z87.891 Personal history of nicotine dependence
CPT/HCPCS: 36415; 70491; 80053; 81001; 85025; 87636; 87651; 96361; 96365; 96375; 99284; J0295; J2930; J7030; Q9967

== ENCOUNTER 2022-08-15 08:17 | Inpatient (IN) | payer MEDICARE, SELFPAY ==
[2022-08-15] VITALS (44 sets, daily range): BP systolic 92–181; BP diastolic 52–158; PULSE 76–134; RESP 15–34; TEMP 36.2–36.9; O2SAT 91–99; BMI 25.6
--- NOTE | ~2022-08-15 | NM_ITS ---
EXAMINATION: NM hepatobiliary wo pharm DATE: 08/20/2022 14:20 INDICATION: Cholecystitis COMPARISON: 08/19/2022 TECHNIQUE: 4 mCi Tc-99m mebrofenin (Choletec) was administered intravenously. Scintigraphic images o f the abdomen were obtained for one hour. FINDINGS: There is normal clearance of radiotracer from the blood pool. There is homogeneous tracer u ptake by the liver. Activity progresses to the gallbladder which is first visualized at 20 minutes w ith continued accumulation of activity in the gallbladder through 60 minutes. No activity evident in the bowels by 60 minutes. IMPRESSION: 1. Active granulation at the gallbladder which essentially precludes acute cholecystitis. 2. No evident bowel activity through 60 minutes of imaging however hepatic excretion appears to remai n within normal limits and there is no evident biliary ductal dilation on prior ultrasound to suggest biliary obstruction. Reviewed, dictated and finalized at location A. OMER SUPPORT PROFESSIONAL IMPRESSION: 1. Active granulation at the gallbladder which essentially precludes acute cho lecystitis. 2. No evident bowel activity through 60 minutes of imaging however hepatic excr etion appears to remain within normal limits and there is no evident biliary du ctal dilation on prior ultrasound to suggest biliary obstruction.
--- NOTE | ~2022-08-15 | CT_ITS ---
EXAMINATION: CT soft tissue neck chest w DATE: 08/18/2022 12:10 INDICATION: Airway swelling TECHNIQUE: Computed tomography (CT) of the neck and chest was performed with 100 mL Omnipaque-350 int ravenous contrast. Additional 3D reconstructions utilizing coronal maximum intensity projection (MIP) were performed. Automated exposure control and iterative reconstruction technique were employed. The dose-length product was 686.24 mGy-cm. COMPARISON: Neck and chest CT, both dated 08/15/2022 FINDINGS: Endotracheal tube with distal tip 8 mm above the monika. Orogastric tube tip in the body of the stoma ch. There is no air surrounding both tubes beginning at the posterior aspect of the oropharynx extend ing caudally in the trachea to the cephalad margin of the endotracheal tube bulb. There is also opaci fication of the posterior nasopharynx and along the posterior margin of the tongue in the oropharynx which demonstrates less than soft tissue density suggesting this represents fluid and/or mucous. The absence of gas within the pharyngeal airway limits assessment for thickening of the soft tissues. The re does not however appear to be any mass effect upon the surrounding parapharyngeal fat or contrast opacified vessels. Mucosal thickening and dependently layering mucus throughout the visualized parana jerry sinuses. Mastoid air cells and middle ear cavities are clear. Visualized portions of the orbits a re normal. No pathologically enlarged cervical lymphadenopathy. Parotid, submandibular and thyroid gl ands are unremarkable. Small amount of nonhemodynamically significant atherosclerotic plaque at the l eft carotid bulb at the bilateral carotid siphons. Severe cervical spondylosis. Linear discoid atelectasis in the lingula, right middle and left lower lobes with additional dependen t atelectasis posteriorly in both lower lobes, left greater than right. Subtle mosaic attenuation in the right mid to lower lung zone without associated septal line thickening and favor more diffuse mil d atelectasis with small subsegmental region of air trapping over pneumonia or pulmonary edema. No pl eural effusion. Heart size is normal. Thoracic aorta is normal in caliber with no dissection. No path ologically enlarged thoracic lymphadenopathy. 1.5 cm hypoenhancing splenic lesion without significant change since 12/20/2018 most likely representing a hemangioma. Gallbladder is dilated to 4.7 cm in di ameter with suggestion of either mild pleural thickening or minimal pericholecystic ascites with betty tional minimal perisplenic ascites. No pericholecystic inflammatory stranding to more specifically melendez ggest acute cholecystitis. 8 mm hyperenhancing hepatic lesion along the gallbladder fundus. Mild uppe r thoracic dextroscoliosis. Moderate to severe thoracic spondylosis with anterior fusion at T2-T3. Ch ronic mild T6 compression fracture with 20% anterior and left-sided vertebral body height loss. IMPRESSION: 1. No gas within the nasopharynx, oropharynx, pharynx or proximal trachea cephalad to the bulb of the endotracheal tube which appears largely due to fluid/mucus filling the airway. This limits assessmen t for any thickening of the parapharyngeal soft tissues although there is no evident peripheral expan juliano of the parapharyngeal soft tissues. 2. Scattered atelectasis in the lingula, right middle and bilateral lower lobes. Additional mosaic at tenuation most likely additional subsegmental atelectasis with scattered air trapping related to eith er small airway disease or bronchiolitis. Pneumonia or pulmonary edema considered less likely. 3. Dilated gallbladder with suggestion of either mild wall thickening or minimal pericholecystic asci danae. This could be due to either acute cholecystitis or artifact of fasting state. Consider further e valuation with either right upper quadrant ultrasound or HIDA scan.
--- NOTE | ~2022-08-15 | XR_ITS ---
EXAMINATION: XR chest 1V portable INDICATION: Respiratory failure TECHNIQUE: Portable AP chest at 0615 hours COMPARISON: 08/24/2022 FINDINGS: A right upper extremity PICC ends with its tip in the distal superior vena cava. The nasoga stric and endotracheal tubes have been removed. Left basilar airspace opacities persist but have impr tisha. No pleural effusion or pneumothorax. The cardiomediastinal silhouette is normal. IMPRESSION: 1. Improved left basilar airspace opacities, consistent with atelectasis versus pneumonia. 2. Endotracheal and nasogastric tube removal. Reviewed, dictated and finalized at location A. ARER
--- NOTE | ~2022-08-15 | XR_ITS ---
XR chest 2V 08/15/2022 09:58 Indication: Shortness of breath Procedure: 2 view chest Comparison: Comparison to multiple prior studies sequentially, with oldest reviewed study dated 05/08. Findings: There is lingular airspace disease which may represent atelectasis or pneumonia. Heart size normal. No significant pleural effusion. No pneumothorax. No acute osseous abnormality. Impression: 1: Lingular infiltrates may represent atelectasis or developing pneumonia. Reviewed, dictated and finalized at location A. 'S AND BOYS' CLOTHING SALESPERSON Impression: 1: Lingular infiltrates may represent atelectasis or developing pneumonia.
--- NOTE | ~2022-08-15 | XR_ITS ---
EXAMINATION: XR chest 1V portable DATE: 08/19/2022 06:58 INDICATION: Respiratory failure. TECHNIQUE: A single frontal view of the chest was obtained. COMPARISON: Chest single view 08/18/2022, chest CT 08/18/2022 FINDINGS: There are airspace opacities in left lower lung zone. No pleural effusion or pneumothorax. The heart size is normal. There is a prominent left paracardial fat pad. The endotracheal tube tip is 1.7 cm above the monika. The nasogastric tube tip is in the stomach. IMPRESSION: 1. Stable airspace opacities in left lower lung zone, consistent with atelectasis versus pneumonia. Reviewed, dictated and finalized at location A. RIOR DESIGN TEACHER IMPRESSION: 1. Stable airspace opacities in left lower lung zone, consistent with atelectas is versus pneumonia.
--- NOTE | ~2022-08-15 | XR_ITS ---
EXAMINATION: XR chest 1V portable Exam Date/Time: 08/15/2022 16:40 STAFF NURSE MIDWIFE HISTORY: SOB Comparison: X-ray chest, same date at 9:56 AM, CTPA, same date at 11:33 AM. FINDINGS/IMPRESSION: Increased diffuse reticular and groundglass opacities, may reflect edema versus infection. Unchanged lingular atelectasis/consolidation. Reviewed, dictated and finalized at location K. F NURSE MIDWIFE
--- NOTE | ~2022-08-15 | XR_ITS ---
EXAMINATION: XR chest 1V portable DATE: 08/16/2022 06:48 INDICATION: Intubated TECHNIQUE: frontal view of the chest was obtained. COMPARISON: Chest radiograph dated 08/15/2022 FINDINGS: Endotracheal tube tip in the right mainstem bronchus approximately 1 cm beyond the monika. Nasogastri c tube extends below the left hemidiaphragm with distal tip collimated off the study. New retrocardiac consolidation the left lower lung zone which could represent atelectasis, small left pleural effusion, pneumonia or some combination thereof. Right lung remains clear. No pneumothorax o r right-sided pleural effusion. The cardiomediastinal silhouette is normal. IMPRESSION: 1. Endotracheal tube tip in the right mainstem bronchus. Would recommend withdrawal of the endotrache al tube by 3 cm. Findings were discussed with Sylwia Marx, the nurse caring for the patient, at 8 :08 AM. 2. New consolidation in the left lower lung zone which could represent atelectasis related to the mal positioned endotracheal tube, small left pleural effusion, pneumonia or some combination thereof Reviewed, dictated and finalized at location A. ER/WAITRESS CAPTAIN IMPRESSION: 1. Endotracheal tube tip in the right mainstem bronchus. Would recommend withdr awal of the endotracheal tube by 3 cm. Findings were discussed with Sylwia molina, the nurse caring for the patient, at 8:08 AM. 2. New consolidation in the left lower lung zone which could represent atelecta sis related to the malpositioned endotracheal tube, small left pleural effusion , pneumonia or some combination thereof
--- NOTE | ~2022-08-15 | US_ITS ---
EXAMINATION:US venous doppler LE INDICATION:Edema. Elevated d-dimer. TECHNIQUE: Multiple grayscale, color flow and Doppler images of the left lower extremity deep venous systems were obtained and reviewed. COMPARISON:Ultrasound dated 09/18/2020 FINDINGS: The common femoral, superficial femoral and popliteal veins demonstrate normal respiratory variation, augmentation and compressibility. Color flow is also seen within the posterior tibial, pe roneal, greater saphenous and profunda veins. IMPRESSION: 1: No lower extremity deep venous thrombosis. Reviewed, dictated and finalized at location A. T SERVICE MANAGER
--- NOTE | ~2022-08-15 | XR_ITS ---
EXAMINATION: XR chest 1V portable DATE: 08/21/2022 05:52 INDICATION: Respiratory failure. TECHNIQUE: A single frontal view of the chest was obtained. COMPARISON: Chest single view 08/20/2022 FINDINGS: There are airspace opacities in the perihilar regions and left lung base. No pleural effusi on or pneumothorax. The heart size is normal. The endotracheal tube tip is 1.6 cm above the monika. T he nasogastric tube tip is beyond the inferior margin of the radiograph, but at least to the stomach. A right upper extremity peripherally inserted central venous catheter (PICC) is seen with tip at the superior cavoatrial junction. IMPRESSION: 1. Stable airspace opacities in the perihilar regions and left lung base, consistent with atelectasis versus pneumonia. Reviewed, dictated and finalized at location A. ECTOR REPAIRER IMPRESSION: 1. Stable airspace opacities in the perihilar regions and left lung base, consi stent with atelectasis versus pneumonia.
--- NOTE | ~2022-08-15 | XR_ITS ---
EXAMINATION: XR chest 1V portable INDICATION: Tachypnea TECHNIQUE: Portable AP chest at 0952 hours COMPARISON: 0529 hours FINDINGS: A right upper extremity PICC ends with its tip in the distal superior vena cava. Left basil ar airspace opacities are unchanged. No pleural effusion or pneumothorax. The cardiomediastinal silho uette is normal. IMPRESSION: 1. Stable left basilar airspace opacities, consistent with atelectasis versus pneumonia. Reviewed, dictated and finalized at location A. S FORCE DEVELOPER IMPRESSION: 1. Stable left basilar airspace opacities, consistent with atelectasis versus p neumonia.
--- NOTE | ~2022-08-15 | XR_ITS ---
EXAMINATION: XR chest ET placement Exam Date/Time: 08/15/2022 18:35 ELECTRON BEAM WELDER SETTER HISTORY: ET PLACEMENT Comparison: None available. RESULT: Lines, tubes, and devices: Endotracheal tube terminating 1 cm above the monika. Nasogastric tube ter minating out of the [id number]. Lungs and pleura: Persistent streaky linear opacities in the left lower lung. Slightly improved diff use reticular and groundglass opacities particularly in the left lung which is likely due to rotation . Cardiomediastinal silhouette: Stable. Other: No acute osseous or upper abdominal finding. IMPRESSION: Well-positioned endotracheal tube, consider retraction by 3 cm. Slightly improving pulmonary opacitie s. Reviewed, dictated and finalized at location K. TRON BEAM WELDER SETTER IMPRESSION: Well-positioned endotracheal tube, consider retraction by 3 cm. Slightly improv ing pulmonary opacities.
--- NOTE | ~2022-08-15 | XR_ITS ---
EXAMINATION: XR chest 1V portable DATE: 08/18/2022 06:24 INDICATION: Respiratory failure TECHNIQUE: frontal view of the chest was obtained. COMPARISON: Chest radiograph dated 08/17/2022 FINDINGS: Endotracheal tube tip 1.5 cm above the monika. Nasogastric tube extends below the left hemidiaphragm with distal tip collimated off the study. Interval resolution of the blunting of the left costophrenic angle with residual mild opacities along the apex of the heart suggesting resolution of prior small left pleural effusion with some residual lingular atelectasis or less likely pneumonia. Minimal streaky opacities at the right lung base and o blique linear discoid atelectasis lateral to the right hilum. No pulmonary edema, pleural effusion or pneumothorax. The cardiomediastinal silhouette is normal. IMPRESSION: 1. Resolution of prior small left pleural effusion. 2. Residual mild opacities in the bilateral lower lungs and favor atelectasis over pneumonia. Reviewed, dictated and finalized at location A. RVISOR FILTRATION IMPRESSION: 1. Resolution of prior small left pleural effusion. 2. Residual mild opacities in the bilateral lower lungs and favor atelectasis o stevie pneumonia.
--- NOTE | ~2022-08-15 | XR_ITS ---
EXAMINATION: XR chest 1V portable DATE: 08/20/2022 06:41 INDICATION: Respiratory failure. TECHNIQUE: A single frontal view of the chest was obtained. COMPARISON: Chest one view 08/19/2022, chest CT 08/18/2022 FINDINGS: There is mild atelectasis in right mid and lower lung zones. There are airspace opacities i n left lower lung zone. No pleural effusion or pneumothorax. The heart size is normal. The endotrache al tube tip is 1.7 cm above the monika. The nasogastric tube tip is in the distal stomach. IMPRESSION: 1. Stable airspace opacities in left lower lung zone, consistent with atelectasis versus pneumonia. 2. Mild atelectasis in right mid and lower lung zones. Reviewed, dictated and finalized at location A. DENT ASSISTANT CNA IMPRESSION: 1. Stable airspace opacities in left lower lung zone, consistent with atelectas is versus pneumonia. 2. Mild atelectasis in right mid and lower lung zones.
--- NOTE | ~2022-08-15 | XR_ITS ---
EXAMINATION: XR chest 1V portable DATE: 08/24/2022 06:33 INDICATION: Respiratory failure. TECHNIQUE: A single frontal view of the chest was obtained. COMPARISON: Chest one view 08/23/2022 FINDINGS: There are airspace opacities at left lung base. Extrapleural fat blunts the left lateral co stophrenic angle. No pleural effusion or pneumothorax. The heart size is normal. The endotracheal tub e tip is 1.3 cm above the monika. The nasogastric tube tip is beyond the inferior margin of the radio graph, but at least to the stomach. A right upper extremity peripherally inserted central venous cath eter (PICC) is seen with tip in the superior vena cava. IMPRESSION: 1. Persistent airspace opacities at left lung base, consistent with atelectasis versus pneumonia. Reviewed, dictated and finalized at location A. LATORY COMPLIANCE MANAGER
--- NOTE | ~2022-08-15 | CT_ITS ---
EXAMINATION: CT soft tissue neck wo con DATE: 08/23/2022 12:11 INDICATION: Airway and posterior pharyngeal swelling. TECHNIQUE: Computed tomography (CT) of the neck was performed without intravenous contrast. Automated exposure control and iterative reconstruction technique were employed. The dose-length product was 4 83.34 mGy-cm. COMPARISON: Neck CT 08/18/2022, 08/15/22, 08/12/22 FINDINGS: The endotracheal tube tip is in expected position above the monika. The nasogastric tube ti p is not included. There is mucosal thickening and dependent fluid in the paranasal sinuses. There ar e no pathologically enlarged lymph nodes. There is fluid in the nasal cavity and pharynx. There is wa ll thickening of the pharynx. No abscess. There is severe cervical spondylosis. The mastoid air cells are normal. IMPRESSION: 1. Wall thickening of the pharynx, consistent with inflammation. No abscess. Reviewed, dictated and finalized at location A. ORATE BANKING OFFICER
--- NOTE | ~2022-08-15 | XR_ITS ---
EXAMINATION: XR chest 1V portable DATE: 08/17/2022 06:11 INDICATION: Respiratory failure TECHNIQUE: frontal view of the chest was obtained. COMPARISON: Chest radiograph dated 08/16/2022 FINDINGS: Endotracheal tube tip 2.1 cm above the monika. Nasogastric tube extends below the left hemidiaphragm with distal tip collimated off the study. Significant decrease in opacities at the left lower lung zone with residual small left pleural effusi on at the costophrenic angle. Right lung remains clear. No pneumothorax or right-sided pleural effusi on. The cardiomediastinal silhouette is normal. IMPRESSION: 1. Significant interval improvement in aeration of the left lower lung zone with residual small left pleural effusion and associated left basilar atelectasis and/or pneumonia. Reviewed, dictated and finalized at location A. DER MILL OPERATOR IMPRESSION: 1. Significant interval improvement in aeration of the left lower lung zone wit h residual small left pleural effusion and associated left basilar atelectasis and/or pneumonia.
--- NOTE | ~2022-08-15 | CT_ITS ---
EXAMINATION: CTA chest PE protocol DATE: 08/15/2022 11:55 SHOTWELD OPERATOR INDICATION: Shortness of breath. Hypoxia. TECHNIQUE: Computed tomographic angiography (CTA) of the chest was performed with 100 mL Omnipaque-35 0 intravenous contrast. The dose-length product was 257.12 mGy-cm. Maximum intensity projection 3D-re constructions of the aorta and other arteries were constructed by the technologist on a separate work station. COMPARISON: CT dated 09/17/2020. FINDINGS: No large central pulmonary emboli. Evaluation of peripheral pulmonary arteries limited by m otion artifact. No significant pleural or pericardial effusion. Heart size normal. No thoracic lympha denopathy. There is mild thickening of the esophagus, suspicious for esophagitis. No pleural or peric ardial effusion. There is a 1.5 cm low-density lesion in the liver,, nonspecific. There is a 4 mm rig ht upper lobe nodule at the pleural surface, image 22. There are groundglass opacities in the lower l obes, right middle lobe and lingula, compatible with pneumonia. There is moderate-severe thoracic spo ndylosis. IMPRESSION: 1. No large central pulmonary embolism. Evaluation of peripheral pulmonary arteries limited by motion artifact. 2: Patchy groundglass opacities of the mid and lower lungs, compatible with pneumonia. Reviewed, dictated and finalized at location A. WELD OPERATOR IMPRESSION: 1. No large central pulmonary embolism. Evaluation of peripheral pulmonary soraya angela limited by motion artifact. 2: Patchy groundglass opacities of the mid and lower lungs, compatible with pne umonia.
--- NOTE | ~2022-08-15 | US_ITS ---
EXAMINATION: US right upper quadrant DATE: 08/19/2022 15:04 INDICATION: Dilated GB TECHNIQUE: Multiple grayscale and Doppler ultrasound images of the right upper quadrant were obtained . COMPARISON: CT abdomen and pelvis 09/16/2020. FINDINGS: Dilated pancreatic duct. The liver is enlarged with increased echogenicity and normal echot exture. No surface nodularity. Normal hepatopetal flow in the main portal vein. The gallbladder is di lated with no abnormal wall thickening, pericholecystic fluid or stones. The common bile duct measure s 5 mm. There was no sonographic Timmons sign but the patient is on pain medication. IMPRESSION: Dilated gallbladder, no stones, wall thickening, or pericholecystic fluid. Mildly dilated pancreatic duct, correlate with pancreatic labs and consider MRCP of the pancreas for further evaluation. Please also refer to the report on the concurrent hepatobiliary scan. Reviewed, dictated and finalized at location K. NO ASSISTANT MANAGER IMPRESSION: Dilated gallbladder, no stones, wall thickening, or pericholecystic fluid. Mild ly dilated pancreatic duct, correlate with pancreatic labs and consider MRCP of the pancreas for further evaluation. Please also refer to the report on the co ncurrent hepatobiliary scan.
--- NOTE | ~2022-08-15 | XR_ITS ---
EXAMINATION: XR chest 1V portable DATE: 08/23/2022 06:05 INDICATION: Respiratory failure. TECHNIQUE: A single frontal view of the chest was obtained. COMPARISON: Chest one view 08/22/2022, chest CT 08/18/2022 FINDINGS: There is mild atelectasis in the lower lung zones. Extrapleural fat blunts the left lateral costophrenic angle. No pleural effusion or pneumothorax. The heart size is normal. The endotracheal tube tip is 1.5 cm above the monika. The nasogastric tube tip is beyond the inferior margin of the ra diograph, but at least to the stomach. A right upper extremity peripherally inserted central venous c atheter (PICC) is seen with tip at the superior cavoatrial junction. IMPRESSION: 1. Mild atelectasis in the lower lung zones. Reviewed, dictated and finalized at location A. E HARDENING MACHINE OPERATOR
--- NOTE | ~2022-08-15 | CT_ITS ---
EXAMINATION: CT soft tissue neck w con DATE: 08/15/2022 15:22 INDICATION: TECHNIQUE: Computed tomography (CT) of the neck was performed with 75 mL Omnipaque-350 intravenous co ntrast. The dose-length product was 345.03 mGy-cm. COMPARISON: 08/12/2022. FINDINGS: The thyroid gland is unremarkable. The submandibular and parotid glands are symmetric. Decreased si ze of the palatine tonsils, which are mostly obscured by dental artifact. There is no cervical lympha denopathy. There are no masses identified. The superior mediastinum is unremarkable. The airway is unremarkable. Small retropharyngeal effusion. Mild left carotid bifurcation plaque. The orbit s are unremarkable. Increased aerated secretions and fluid levels in the paranasal sinuses. Nasopha ryngeal fluid and mucosal enhancement. The mastoid air cells are clear. Left upper lobe peripheral g ranuloma/lymph node versus focus of scar. Somewhat improved groundglass opacities. There is cervical spondylosis. IMPRESSION: 1. The palatine tonsils have decreased somewhat in size but remain obscured by metal artifact. 2. Worsening paranasal sinus disease, with nasopharyngeal fluid and mucosal enhancement/edema. New, s mall retropharyngeal effusion. 3. Slightly improved pulmonary opacities. Reviewed, dictated and finalized at location K. RSTITCH ELASTIC ATTACHER IMPRESSION: 1. The palatine tonsils have decreased somewhat in size but remain obscured by metal artifact. 2. Worsening paranasal sinus disease, with nasopharyngeal fluid and mucosal enh ancement/edema. New, small retropharyngeal effusion. 3. Slightly improved pulmonary opacities.
--- NOTE | ~2022-08-15 | XR_ITS ---
EXAM: XR abdomen NG/feed tube insert DATE: 08/15/2022 18:43 HISTORY: NG PLACEMENT . COMPARISON: None available. FINDINGS: NG tube tip and side port project over the stomach. Normal bowel gas pattern. Enlarged breanne er. Contrast excretion in the kidneys. No abnormal abdominal calcification. Regional bones and soft t issues normal for age. IMPRESSION: NG tube, in good position. Hepatomegaly. Reviewed, dictated and finalized at location K.
--- NOTE | ~2022-08-15 | XR_ITS ---
EXAMINATION: XR chest 1V portable DATE: 08/22/2022 06:26 INDICATION: Respiratory failure. TECHNIQUE: A single frontal view of the chest was obtained. COMPARISON: Chest single view 08/21/2022, chest CT 08/18/2022 FINDINGS: The patient is rotated to her left. There are airspace opacities at left lung base. No pleu ral effusion or pneumothorax. The heart size is normal. The endotracheal tube tip is 1.5 cm above the monika. The nasogastric tube tip is beyond the inferior margin of the radiograph, but at least to th e stomach. A right upper extremity peripherally inserted central venous catheter (PICC) is seen with tip at the superior cavoatrial junction. IMPRESSION: 1. Slightly worsened airspace opacities at left lung base, consistent with atelectasis versus pneumon ia. Reviewed, dictated and finalized at location A. COPYIST IMPRESSION: 1. Slightly worsened airspace opacities at left lung base, consistent with atel ectasis versus pneumonia.
--- NOTE | ~2022-08-15 | XR_ITS ---
EXAMINATION: XR chest 1V portable INDICATION: Respiratory failure TECHNIQUE: Portable AP chest at 0529 hours COMPARISON: 08/25/2022 FINDINGS: Left basilar airspace opacities persist without significant change. A right upper extremity PICC ends with its tip in the distal superior vena cava. No pleural effusion or pneumothorax. The ca rdiomediastinal silhouette is normal. IMPRESSION: 1. Stable left basilar airspace opacities, consistent with atelectasis versus pneumonia. Reviewed, dictated and finalized at location A. ERICAN INDIAN STUDIES PROFESSOR IMPRESSION: 1. Stable left basilar airspace opacities, consistent with atelectasis versus p neumonia.
--- NOTE | 2022-08-15 08:51 | ECG_ITS ---
Measurements Intervals [place] Rate: 87 P: 57 NV: 143 QRS: 11 QRSD: 89 T: 3 QT: 397 QTc: 478 Interpretive Statements SINUS RHYTHM NONSPECIFIC ST AND T-WAVE ABNORMALITY COMPARED TO ECG 09/16/2020 21:30:15 NO SIGNIFICANT CHANGES Electronically Signed On 08-15-2022 15:07:14 SECONDS GRADER by Bety Parham M.D.
[2022-08-15 09:33] LABS: Basophils Percent Auto 0.4 % (0.2-1.2); Eosinophils Percent Auto 0.5 % (0-4.4); Hematocrit 38.2 % (37.0-47.0); Hemoglobin 12.5 g/dL (12.0-15.0); Immature Granulocyte Absolute 0.08 K/mm3 (0.00-0.031); Lymphocytes Absolute Auto 0.79 K/mm3 (0.9-3.2); Lymphocytes Percent Auto 10.3 % (18.3-44.2); Mean Corpuscular HGB Conc 32.7 g/dl (32-36); Mean Corpuscular Hemoglobin 30.6 pg (26-34); Mean Corpuscular Volume 93.4 fl (80-100); Mean Platelet Volume 9.6 fl (7.4-10.4); Monocytes Percent Auto 12.3 % (2.6-8.5); Neutrophils Absolute Auto 5.8 K/mm3 (1.3-6.7); Neutrophils Percent Auto 75.5 % (45.5-73.1); Platelet Count Result 271 k/mm3 (150-375); Red Blood Count 4.09 M/mm3 (4.2-5.4); White Blood Count 7.7 K/mm3 (4.5-10.0)
[2022-08-15 09:43] LABS: Alanine Aminotransferase 18 U/L (6-35); Albumin Level 4.2 g/dL (3.5-5.1); Alkaline Phosphatase 92 U/L (38-126); Anion Gap 10 mmol/L (8-16); Aspartate Amino Transferase 26 U/L (14-36); Bilirubin,Total 0.7 mg/dL (0.2-1.3); Blood Urea Nitrogen 31 mg/dL (7-17); Calcium 9.4 mg/dL (8.4-10.2); Carbon Dioxide 24 mmol/L (22-30); Chloride 108 mmol/L (98-107); Estimated Glomerular Filt Rate > 60; Glucose 138 mg/dL (65-110); Potassium 3.4 mmol/L (3.4-5.0); Sodium 142 mmol/L (137-145)
--- NOTE | 2022-08-15 09:45 | ED.SOB ---
HPI - SOB/Dyspnea General Chief Complaint: Shortness of Breath/Dyspnea <Stephanie Patel PA-C - Last Filed: 08/15/22 15:42> Stated Complaint: SOB <ORION Whittington Last Filed: 08/15/22 15:42> Time Seen by Provider: 08/15/22 09:13 <ORION Whittington Last Filed: 08/15/22 15:42> Source: patient and family <ORION Whittington Last Filed: 08/15/22 15:42> Mode of arrival: EMS <ORION Whittington Last Filed: 08/15/22 15:42> Limitations: dementia <ORION Whittington Last Filed: 08/15/22 15:42> History of Present Illness HPI Narrative: This is a 81-year-old female that presents to the emergency department for cold symptoms ongoing over the last 5 days. Patient with baseline history of dementia. Much of history is obtained via her family members. Reports cough, congestion, and sore throat. Reports sore throat has caused her to not be able to keep much of anything down. She was seen in the ER on Saturday and prescribed Augmentin. She was not able to take these pills because they are too large. She was seen yesterday and prescribed cefdinir by her PCP. Reports worsening difficulty breathing which prompted them to call EMS. She was found to be hypoxic in the 80s and placed on oxygen. Denies chest pain. <ORION Whittington Last Filed: 08/15/22 15:42> Related Data Home Medications: Home Medications Medication Instructions Recorded Confirmed atenolol 25 mg tablet 25 mg PO DAILY 07/24/19 06/05/22 <ORION Whittington Last Filed: 08/15/22 15:42> Allergies/Adverse Reactions: Allergies Allergy/AdvReac Type Severity Reaction Status Date / Time No Known Allergies Allergy Mild Verified 08/15/22 08:32 <ORION Whittnigton Last Filed: 08/15/22 15:42> Review of Systems Review of Systems: CONSTITUTIONAL: Reports fever EYES: Denies visual changes, redness, or discharge. ENT: Denies rhinorrhea, congestion, sore throat, or otalgia. CARDIOVASCULAR: Denies chest pain, palpitations, or edema. RESPIRATORY: Denies cough or dyspnea. GASTROINTESTINAL: Denies abdominal pain, nausea, vomiting, or diarrhea. GENITOURINARY: Denies dysuria or hematuria. SKIN: Denies rash or itching. MUSCULOSKELETAL: Denies back pain, joint pain, or myalgia. NEUROLOGIC: Denies headache, numbness, or weakness. PSYCHIATRIC: Denies anxiety or depression. <Stephanie Patel PA-C - Last Filed: 08/15/22 15:42> All systems reviewed & are unremarkable except as noted in HPI and below <Stephanie Patel PA-C - Last Filed: 08/15/22 15:42> [facility] Past Medical History Medical History: Medical History (Updated 08/15/22 @ 15:39 by Jennifer Pulido PA-C) Anxiety Arthritis Atrial fibrillation Degenerative disc disease Dementia Depression Hypertension Kidney stone Obstructive sleep apnea on CPAP Pancreatitis Skin cancer Basal and squamous cell. <Stephanie Patel PA-C - Last Filed: 08/15/22 15:42> Surgical History Surgical History: Surgical History (Updated 08/15/22 @ 15:37 by Jennifer Pulido PA-C) History of appendectomy History of bilateral cataract extraction History of breast biopsy History of hysterectomy Status post ORIF of fracture of ankle Right. <Stephanie Patel PA-C - Last Filed: 08/15/22 15:42> Family History Family History: Family History Mother Family history of malignant neoplasm of ovary Father Sibling Cerebrovascular accident Grandparent , cancer No problems noted. <Stephanie Patel PA-C - Last Filed: 08/15/22 15:42> Social History Social History: Social History (Updated 08/15/22 @ 15:39 by Jennifer Pulido PA-C) Social History: Surrogate medical decision maker: Susan Yates, daughter. Code status: Full code. Smoking status: Former smoker Tobacco type: cigarettes Second hand tobacco smoke exposure:
[2022-08-15 10:09] LABS: Influenza A QL RT-PCR Negative (Negative); Influenza B QL RT-PCR Negative (Negative); RSV RNA, RT-PCR Negative (Negative); SARS-CoV-2 RNA PCR Negative
[2022-08-15] MEDS: SODIUM CHLORIDE 0.9% IV 500 ML 999 ML IV CONT (10:19)
[2022-08-15 10:23] LABS: Lactic Acid Reflex 0.9 mmol/L (0.7-2.0)
[2022-08-15 10:39] LABS: D Dimer 1.28 ug/mL (<0.48)
[2022-08-15 10:58] LABS: NT Pro B Type Natriuretic Pept 320 pg/mL (5-100)
--- NOTE | 2022-08-15 13:46 | PC.NURSE ---
intermittent coughing noted with productive yellow sputum. antibiotic hung as ordered. waiting bed assignment. family remains at pts bedside.
--- NOTE | 2022-08-15 15:30 | PM.IMHP ---
H&P: HPI History of Present Illness Date/Time: 08/15/22 15:30 Chief Complaint: Shortness of breath. Narrative: This is an 81-year-old female with dementia, paroxysmal atrial fibrillation, sleep apnea, and hypertension who presented to the emergency department for evaluation of shortness of breath. She is not a great historian and as such a majority of the following history is obtained via a review of her electronic medical records as well as discussions with her daughter and grandson at bedside, with her permission. She has not been feeling well since Saturday, initially with complaints of sore throat and sinus congestion. It got to the point where she was not eating, drinking, or taking her medications due to severe pain in her throat and she was seen emergency department on Saturday at which time she had a pretty unremarkable workup however CT of the neck showed bilateral tonsillar enlargement and she was discharged with a Medrol Dosepak and Augmentin with instructions for ENT follow-up. She followed up with her doctor yesterday at which time she was given an IM injection of steroids and presumably ceftriaxone due to the fact that she has not been able to swallow her medications. Today she seemed to be having increasing difficulties with breathing and she was brought back in for evaluation. Vital signs were stable on arrival. Her labs were pretty unremarkable. Imaging of the chest showed findings compatible with pneumonia and I was asked to admit the patient in this setting. At the time of my evaluation the patient has audible upper airway rattling and her cough is extremely weak and she avoids clearing her throat due to pain. While I was in the room she had difficulties with her secretions and I witnessed an episode where she became tachycardic, tachypneic, and hypoxic. She is clearly at risk for aspiration and due to the fact that she is not able to protect her airway at this time, the decision was made to intubate after several discussions with the ED physician, OSWALD, and the patient's family members. According to the ED physician who intubated the patient, she had copious amounts of thick yellowish green phlegm adhered to the vocal cords in the posterior pharynx with discharge coming down from the sinuses. Review of Systems Review of Systems: Twelve systems were reviewed with the patient and her family members prior to intubation. They denied fever, chills, and sweats. Patient endorses a frontal sinus headache and significant sinus congestion to the point where she has not been able to breathe through her nose whatsoever. Her mouth has become dry but she cannot swallow. Her cough is at times productive of a large amount of greenish yellow fluid. She has not had anything to eat for couple of days. No diarrhea. She denies chest pain. Except as documented, all other systems were reviewed and are negative. [facility] Past Medical History Medical History Anxiety Arthritis Atrial fibrillation Degenerative disc disease Dementia Depression Hypertension Kidney stone Obstructive sleep apnea on CPAP Pancreatitis Skin cancer Basal and squamous cell. Surgical History Surgical History History of appendectomy History of bilateral cataract extraction History of breast biopsy History of hysterectomy Status post ORIF of fracture of ankle Right. Family History Family History Mother Family history of malignant neoplasm of ovary Father Sibling Cerebrovascular accident Grandparent , cancer No problems noted. Social History Social History (Updated 08/15/22 @ 15:39 by Jennifer Pulido PA-C) Social History: Surrogate medical decision maker: Susan Yates, daughter. Code status: Full code. Smoking status: Former smoker Tobacco type:
--- NOTE | 2022-08-15 16:35 | PC.NURSE ---
called into room by pa. pt having audible upper airway congestion. had taken herself off oxygen. pulse ox in the 70's. pt placed on 15 l nrb with sats increasing. respirations remain in the 30's. family no longer at bedside.
[2022-08-15] MEDS: SUCCINYLCHOLINE CHLORIDE 20 MG/ML 10 ML VIAL 100 MG IV PUSH (18:06)
[2022-08-15] MEDS: MIDAZOLAM HCL (*CRX) 2 MG/2 ML VIAL 4 MG IV PUSH (18:06)
--- NOTE | 2022-08-15 18:06 | PC.NURSE ---
succ 100 mg versed 4 mg given 7.5 et tube placed 22 @lip positive color change equal chest rise lung sounds throughout bravo
--- NOTE | 2022-08-15 18:13 | PC.NURSE ---
additional versed 4 mg given for pt coughing against the vent
[2022-08-15] MEDS: PROPOFOL IV EMULSION 100 ML 5 MG (18:15)
--- NOTE | 2022-08-15 18:15 | PC.NURSE ---
diprivan gtt iniated at 5mcg soft restraints applied
--- NOTE | 2022-08-15 18:34 | PC.NURSE ---
diprivan gtt increased to 10 mcg
--- NOTE | 2022-08-15 18:45 | PC.NURSE ---
bp 167/93 pt restless. biting on tube amaya. rolling around on stretcher. diprivan increased to 15 mcg
--- NOTE | 2022-08-15 18:52 | PC.NURSE ---
diprivan gtt increased to 20 mcg. ed providers aware that pt needs further sedation. daughter again at bedside.
--- NOTE | 2022-08-15 19:03 | PC.NURSE ---
pt continues with agitation and attempts to pull at et tube. diprivan again increased to 25 mcg
[2022-08-15 19:24] LABS: Alveolar/Arterial O2 Gradient 217.1 mmHg; Base Excess ABG 0.8 mEq/l (+/-2.0); Fractional Inspired Oxygen 50 %; HCO3 ABG 24.8 mEq/l (22.0-26.0); Oxygen Content ABG 17.4 %vol (16.0-22.0); Oxygen Saturation ABG 97.6 % (95.0-100.0); Oxyhemoglobin 96.3 % THb (90.0-100.0); PCO2 ABG 37.6 mmHg (35.0-45.0); PO2 ABG 97.1 mmHg (80.0-100.0); PO2 FiO2 Ratio Arterial Blood 1.94 %; Total Hemoglobin 12.8 g/dL (12.0-18.0); pH ABG 7.437 (7.350-7.450)
[2022-08-15 19:25] LABS: Arterial Blood Gas Vent Mode CMV; Arterial Blood Gas Ventilator rate 15 /MIN; Device VENTILATOR; Modified Allen's Test Unable to perform; Site Drawn RIGHT RADIAL
[2022-08-15 19:26] LABS: Arterial Blood Gas PEEP 5 cmH2O; Arterial Blood Gas Tidal Volume 300 ml
[2022-08-15] MEDS: FENTANYL 2,500MCG/NS250ML(*CRX 2,500 MCG/250 ML BAG IV CONT (19:55)
[2022-08-15] MEDS: MIDAZOLAM 100MG/NS 100ML(*CRX) 100 MG/100 ML BAG IV CONT (19:55)
--- NOTE | 2022-08-15 23:00 | ADMGEN ---
This patient, Opal Denson, was admitted to Intensive Care Unit-8. Patient/family oriented to hospital policies and general routines including ID bracelet, bed and alarms, visiting hours, pain management, procedures, bathroom and other care routines, personal items, smoking policy, room service/diet, and visiting hours. Information on how to activate the Rapid Response Team has been discussed. Patient/Family are encouraged to report perceived risks to care and to ask questions if they do not understand what they are told or what they should do.
[2022-08-15] MEDS: PIPERACILLIN/TAZOBACTAM SOD 4.5 GM in SODIUM CHLORIDE 0.9% IV 100 ML 200 ML IVPB (23:16)
[2022-08-16] VITALS (31 sets, daily range): BP systolic 107–122; BP diastolic 51–68; PULSE 58–86; RESP 14–16; TEMP 36.6–37.1; O2SAT 95–99; BMI 25.6
[2022-08-16] MEDS: ALBUTEROL SULFATE NEB 2.5 MG/3 ML INH INHALATION ×4 (02:00→20:30)
[2022-08-16] MEDS: IPRATROPIUM BR 0.02% INH SOLN 0.5 MG/2.5 ML VIAL INHALATION ×4 (02:00→20:30)
[2022-08-16] MEDS: PIPERACILLIN/TAZOBACTAM SOD 4.5 GM in SODIUM CHLORIDE 0.9% IV 100 ML 200 ML IVPB ×4 (05:41→21:16)
[2022-08-16 06:23] LABS: Base Excess ABG 1.3 mEq/l (+/-2.0); Carboxyhemoglobin 0.3 % THb (0-2.0); Fractional Inspired Oxygen 45 %; HCO3 ABG 26.1 mEq/l (22.0-26.0); Methemoglobin ABG 0.3 %THb (0-1.5); Oxygen Content ABG 15.5 %vol (16.0-22.0); Oxygen Saturation ABG 96.6 % (95.0-100.0); Oxyhemoglobin 94.6 % THb (90.0-100.0); PCO2 ABG 42.2 mmHg (35.0-45.0); PO2 ABG 85.9 mmHg (80.0-100.0); PO2 FiO2 Ratio Arterial Blood 1.91 %; Reduced Hemoglobin 4.8 %THb (0-5.0); Total Hemoglobin 11.6 g/dL (12.0-18.0)
[2022-08-16 06:25] LABS: Site Drawn RIGHT RADIAL
[2022-08-16 06:26] LABS: Arterial Blood Gas PEEP 5 cmH2O; Arterial Blood Gas Tidal Volume 300 ml; Arterial Blood Gas Vent Mode CMV; Arterial Blood Gas Ventilator rate 15 /MIN; Device VENTILATOR; Modified Allen's Test Unable to perform
[2022-08-16 07:07] LABS: Basophils Percent Auto 0.5 % (0.2-1.2); Eosinophils Absolute Auto 0.3 K/mm3 (0-0.3); Eosinophils Percent Auto 3.6 % (0-4.4); Hematocrit 38.5 % (37.0-47.0); Hemoglobin 12.1 g/dL (12.0-15.0); Immature Granulocyte Absolute 0.11 K/mm3 (0.00-0.031); Immature Granulocyte Percent A 1.5 % (0-0.5); Lymphocytes Absolute Auto 1.04 K/mm3 (0.9-3.2); Lymphocytes Percent Auto 14.2 % (18.3-44.2); Mean Corpuscular HGB Conc 31.4 g/dl (32-36); Mean Corpuscular Hemoglobin 30.9 pg (26-34); Mean Corpuscular Volume 98.5 fl (80-100); Mean Platelet Volume 9.7 fl (7.4-10.4); Monocytes Absolute Auto 0.9 K/mm3 (0.1-0.6); Monocytes Percent Auto 12.7 % (2.6-8.5); Neutrophils Absolute Auto 4.9 K/mm3 (1.3-6.7); Neutrophils Percent Auto 67.5 % (45.5-73.1); Platelet Count Result 227 k/mm3 (150-375); Red Blood Count 3.91 M/mm3 (4.2-5.4); Red Cell Distribution Width 13.1 % (11.5-14.5); White Blood Count 7.3 K/mm3 (4.5-10.0)
[2022-08-16 07:28] LABS: Alanine Aminotransferase 22 U/L (6-35); Albumin Level 3.8 g/dL (3.5-5.1); Alkaline Phosphatase 82 U/L (38-126); Anion Gap 9 mmol/L (8-16); Aspartate Amino Transferase 29 U/L (14-36); Bilirubin,Total 0.7 mg/dL (0.2-1.3); Blood Urea Nitrogen 25 mg/dL (7-17); Calcium 8.7 mg/dL (8.4-10.2); Carbon Dioxide 27 mmol/L (22-30); Chloride 105 mmol/L (98-107); Estimated Glomerular Filt Rate > 60; Glucose 109 mg/dL (65-110); Magnesium 2.5 mg/dL (1.6-2.3); Potassium 3.2 mmol/L (3.4-5.0); Sodium 141 mmol/L (137-145)
[2022-08-16] MEDS: ENOXAPARIN 40 MG/0.4 ML SYRINGE SUB-Q (08:17)
[2022-08-16] MEDS: PANTOPRAZOLE SODIUM IV 40 MG VIAL IV PUSH (08:17)
--- NOTE | 2022-08-16 08:40 | WPDCN ---
Assessment and Plan Assessment and plan (1) Sinusitis: Code(s): J32.9 - Chronic sinusitis, unspecified Status: Acute Assessment and Plan: Opal came in with acute on chronic sinusitis, pharyngitis with difficulty tolerating secretions, was intubated for airway protection. No drainable abscess on imaging. She struggled to take antibiotics prior to admission due to odynophagia. Agree with antibiotic regimen, recommended adding decadron 8mg q8h x3 doses to reduce airway edema. Extubate per ICU when she is able. Recommend repeating CT neck in 48h if concern for persistent infection. Boom Duenas MD (2) Acute respiratory failure with hypoxia: Code(s): J96.01 - Acute respiratory failure with hypoxia Status: Acute HPI Data of Consult Date/Time: 08/16/22 08:40 Requesting Physician: Jacobo Chavez MD Primary Care Provider: Paddy Rodriguez MD Consult Narrative Reason for consult: Sinusitis, pharyngitis Narrative: Opal Denson is a 81 year old female who has been ill for several days with odynophagia. She has dementia but is in fairly good health overall and was prescribed amox as an outpt, could not swallow the pills, went in saturday to PCP and got IM abx/steroid but by saturday was not improving and came to ED. In the ED, re-imaged, showing tonsillitis/pharyngitis with some concern for retropharyngeal swelling and acute on chronic sinusitis. There were several coughing episodes concerning for aspiration, airway protection and she was intubated. Review of Systems Review of Systems: ROS unobtainable: Yes unobtainable due to endotracheal tube PMFSH Past Medical History Medical History Anxiety Arthritis Atrial fibrillation Degenerative disc disease Dementia Depression Hypertension Kidney stone Obstructive sleep apnea on CPAP Pancreatitis Skin cancer Basal and squamous cell. Surgical History Surgical History History of appendectomy History of bilateral cataract extraction History of breast biopsy History of hysterectomy Status post ORIF of fracture of ankle Right. Family History Family History Mother Family history of malignant neoplasm of ovary Father Sibling Cerebrovascular accident Grandparent , cancer No problems noted. Social History Social History Social History: Surrogate medical decision maker: Susan Yates, daughter. Code status: Full code. Smoking status: Never smoker Tobacco type: cigarettes Second hand tobacco smoke exposure: Yes Alcohol intake: never Substance use: never Substance use type: does not use Additional living arrangements comments: . Daughter, Susan, lives close and is there from 2-8pm daily with other family checking on her throughout the day. Additional occupation/education comments: [employer] Spiritual care concerns: No Meds Home Medications and Allergies Home Medications Medication Instructions Recorded Confirmed Type atenolol 25 mg tablet 25 mg PO DAILY 07/24/19 08/15/22 History memantine 28 mg capsule 28 mg PO DAILY #30 ea 02/14/22 08/15/22 Rx sprinkle,extended release 24hr methylprednisolone 4 mg tablets in See Rx Instructions PO .COMPLEX 08/12/22 08/15/22 Rx a dose pack (Medrol (Rene)) #21 ea cefdinir 250 mg/5 mL oral 300 mg (6 mL) PO Q12H 10 days #120 08/13/22 08/15/22 Rx suspension mL aspirin 81 mg capsule 81 mg PO DAILY 08/15/22 08/15/22 History donepezil 10 mg tablet 10 mg PO DAILY 08/15/22 08/15/22 History mirtazapine 15 mg tablet 15 mg PO DAILY 08/15/22 08/15/22 History mupirocin 2 % topical ointment 1 applic topical BID PRN Dry Nasal 08/15/22 08/15/22 History Passages omeprazole 20 mg capsule,muriel
[2022-08-16] MEDS: POTASSIUM CHLORIDE 20 MEQ PACKET (FOR LIQUID) 40 MEQ FEED TUBE ×2 (09:48→15:57)
[2022-08-16] MEDS: DEXAMETHASONE SOD PHOS INJ 4 MG/ML VIAL 8 MG IV PUSH ×3 (09:49→21:14)
--- NOTE | 2022-08-16 11:00 | WPDCNINT ---
Assessment and Plan Assessment and plan (1) Acute respiratory failure with hypoxia: Code(s): J96.01 - Acute respiratory failure with hypoxia Status: Acute Assessment and Plan: Acute Respiratory failure secondary to pneumonia, pharyngitis, sinusitis, airway edema and swelling Continue full mechanical ventilation support to prevent hypoxemia/hypercarbia and end organ damage. Patient was evaluated by ENT. No drainable abscess on imaging Continue Decadron Continue vanc Zosyn and doxycycline Chest x-ray reviewed-withdraw ET tube by 3 cm Low tidal volume ventilation strategy to prevent volutrauma Will attempt SBT when ready to wean. Bronchodilators Blood cultures, sputum cultures Urine Legionella pneumococcal antigen are pending Flu RSV and COVID are negative Lower extremity Dopplers were negative for DVT Chest x-ray IMPRESSION: 1. Endotracheal tube tip in the right mainstem bronchus. Would recommend withdrawal of the endotracheal tube by 3 cm. Findings were discussed with Sylwia Marx, the nurse caring for the patient, at 8:08 AM. 2. New consolidation in the left lower lung zone which could represent atelectasis related to the malpositioned endotracheal tube, small left pleural effusion, pneumonia or some combination thereof Soft tissue neck CT IMPRESSION: 1. The palatine tonsils have decreased somewhat in size but remain obscured by metal artifact. 2. Worsening paranasal sinus disease, with nasopharyngeal fluid and mucosal enhancement/edema. New, small retropharyngeal effusion. 3. Slightly improved pulmonary opacities. Chest CT IMPRESSION: 1. No large central pulmonary embolism. Evaluation of peripheral pulmonary arteries limited by motion artifact. 2: Patchy groundglass opacities of the mid and lower lungs, compatible with pneumonia. (2) Pneumonia: Qualifiers: Laterality: bilateral Lung location: lower lobe of lung Pneumonia type: due to unspecified organism Qualified Code(s): J18.9 - Pneumonia, unspecified organism Code(s): J18.9 - Pneumonia, unspecified organism Status: Acute Assessment and Plan: See above (3) Sinusitis: Code(s): J32.9 - Chronic sinusitis, unspecified Status: Acute Assessment and Plan: See above (4) Dementia: Code(s): F03.90 - Unspecified dementia, unspecified severity, without behavioral disturbance, psychotic disturbance, mood disturbance, and anxiety Status: Acute Assessment and Plan: Continue Aricept. Hold Namenda as a stent extended release tablet and cannot be given through NG (5) Hypertension: Code(s): I10 - Essential (primary) hypertension Status: Acute Assessment and Plan: Blood pressure soft patient currently on sedation Hold anti hypertensives (6) Electrolyte abnormality: Code(s): E87.8 - Other disorders of electrolyte and fluid balance, not elsewhere classified Status: Acute Assessment and Plan: Replace low potassium (7) Atrial fibrillation: Code(s): I48.91 - Unspecified atrial fibrillation Status: Acute Assessment and Plan: Currently in sinus rhythm Not on anticoagulation as an outpatient Continue aspirin Plan DVT prophylaxis -Lovenox Stress ulcer prophylaxis -PPI Nutrition -start Tube Feeds Code Status - Full Code Spoke to and updated patient's daughter at bedside and answered all her questions Total Critical Care Time - 32 minutes Due to a high probability of clinically significant, life threatening deterioration, the patient required my highest level of preparedness to intervene emergently and I personally spent this critical care time directly and personally managing the patient. This critical care time included obtaining a history; examining the patient; pulse oximetry; ordering and review of studies; arranging urgent treatment with development of a management plan; evaluation of patient's response to treatment; frequent reassessme
[2022-08-16] MEDS: MIDAZOLAM 100MG/NS 100ML(*CRX) 100 MG/100 ML BAG IV CONT (18:52)
[2022-08-16] MEDS: DONEPEZIL HCL 10 MG TABLET FEED TUBE (21:13)
[2022-08-16] MEDS: DOXYCYCLINE HYCLATE 100 MG TABLET FEED TUBE (21:14)
[2022-08-17] VITALS (35 sets, daily range): BP systolic 112–161; BP diastolic 56–98; PULSE 53–97; RESP 13–19; TEMP 36.3–36.7; O2SAT 93–100
[2022-08-17] MEDS: FENTANYL 2,500MCG/NS250ML(*CRX 2,500 MCG/250 ML BAG 10 MCG IV CONT (00:25)
[2022-08-17] MEDS: IPRATROPIUM BR 0.02% INH SOLN 0.5 MG/2.5 ML VIAL INHALATION ×4 (02:02→20:30)
[2022-08-17] MEDS: ALBUTEROL SULFATE NEB 2.5 MG/3 ML INH INHALATION ×4 (02:02→20:30)
[2022-08-17] MEDS: PIPERACILLIN/TAZOBACTAM SOD 4.5 GM in SODIUM CHLORIDE 0.9% IV 100 ML 200 ML IVPB ×4 (03:42→21:30)
[2022-08-17 04:55] LABS: Hematocrit 35.5 % (37.0-47.0); Hemoglobin 11.5 g/dL (12.0-15.0); Mean Corpuscular HGB Conc 32.4 g/dl (32-36); Mean Corpuscular Hemoglobin 31.3 pg (26-34); Mean Corpuscular Volume 96.7 fl (80-100); Platelet Count Result 233 k/mm3 (150-375); Red Blood Count 3.67 M/mm3 (4.2-5.4); Red Cell Distribution Width 12.6 % (11.5-14.5)
[2022-08-17 05:08] LABS: Alanine Aminotransferase 38 U/L (6-35); Albumin Level 3.4 g/dL (3.5-5.1); Alkaline Phosphatase 93 U/L (38-126); Anion Gap 6 mmol/L (8-16); Aspartate Amino Transferase 38 U/L (14-36); Bilirubin,Total 0.5 mg/dL (0.2-1.3); Blood Urea Nitrogen 27 mg/dL (7-17); Calcium 8.8 mg/dL (8.4-10.2); Carbon Dioxide 24 mmol/L (22-30); Chloride 112 mmol/L (98-107); Estimated Glomerular Filt Rate > 60; Glucose 170 mg/dL (65-110); Magnesium 2.4 mg/dL (1.6-2.3); Potassium 3.8 mmol/L (3.4-5.0); Sodium 142 mmol/L (137-145)
[2022-08-17 05:59] LABS: Alveolar/Arterial O2 Gradient 86.8 mmHg; Base Excess ABG -0.3 mEq/l (+/-2.0); Fractional Inspired Oxygen 30 %; HCO3 ABG 25.1 mEq/l (22.0-26.0); Oxygen Content ABG 15.9 %vol (16.0-22.0); Oxygen Saturation ABG 94.7 % (95.0-100.0); Oxyhemoglobin 93.2 % THb (90.0-100.0); PCO2 ABG 44.1 mmHg (35.0-45.0); PO2 ABG 75.3 mmHg (80.0-100.0); PO2 FiO2 Ratio Arterial Blood 2.51 %; Total Hemoglobin 12.1 g/dL (12.0-18.0); pH ABG 7.373 (7.350-7.450)
[2022-08-17 06:00] LABS: Arterial Blood Gas PEEP 5 cmH2O; Arterial Blood Gas Tidal Volume 300 ml; Arterial Blood Gas Vent Mode CMV; Arterial Blood Gas Ventilator rate 15 /MIN; Device VENTILATOR; Modified Allen's Test Unable to perform; Site Drawn RIGHT RADIAL
[2022-08-17] MEDS: dexmedeTOMIDine 400 MCG/100 ML 400 MCG/100 ML BAG IV CONT (08:35)
[2022-08-17] MEDS: DOXYCYCLINE HYCLATE 100 MG TABLET FEED TUBE ×2 (08:36→21:13)
[2022-08-17] MEDS: ENOXAPARIN 40 MG/0.4 ML SYRINGE SUB-Q (08:36)
[2022-08-17] MEDS: ASPIRIN 325 MG TABLET FEED TUBE (08:36)
[2022-08-17] MEDS: PANTOPRAZOLE SODIUM IV 40 MG VIAL IV PUSH (08:36)
[2022-08-17] MEDS: methylPREDNISolone SOD SUCC 125 MG VIAL 80 MG IV PUSH ×2 (08:41→21:13)
[2022-08-17] MEDS: MINERAL OIL/WHITE PETROLATUM OINTMENT 1 APPLIC EACH EYE ×2 (08:41→21:13)
--- NOTE | 2022-08-17 09:14 | WPDINTPN ---
Progress Note: A&P Assessment and Plan (1) Acute respiratory failure with hypoxia: Code(s): J96.01 - Acute respiratory failure with hypoxia Status: Acute Assessment and Plan: Acute Respiratory failure secondary to pneumonia, pharyngitis, sinusitis, airway edema and swelling Continue full mechanical ventilation support to prevent hypoxemia/hypercarbia and end organ damage. Patient was evaluated by ENT. No drainable abscess on imaging Patient was treated with Decadron Continue vanc Zosyn and doxycycline Chest x-ray reviewed Low tidal volume ventilation strategy to prevent volutrauma 08/17 I assessed patient for a weaning trial but on deflation of ET tube cuff patient had no leak around it suggestive of airway edema I will continue steroids for another 24 hours and reassess. If patient does not have cuff leak tomorrow will obtain repeat CT scan Start Precedex Continue Bronchodilators Pending Blood cultures, sputum cultures Urine Legionella pneumococcal antigen are pending Flu RSV and COVID are negative Lower extremity Dopplers were negative for DVT Soft tissue neck CT IMPRESSION: 1. The palatine tonsils have decreased somewhat in size but remain obscured by metal artifact. 2. Worsening paranasal sinus disease, with nasopharyngeal fluid and mucosal enhancement/edema. New, small retropharyngeal effusion. 3. Slightly improved pulmonary opacities. Chest CT IMPRESSION: 1. No large central pulmonary embolism. Evaluation of peripheral pulmonary arteries limited by motion artifact. 2: Patchy groundglass opacities of the mid and lower lungs, compatible with pneumonia. (2) Pneumonia: Qualifiers: Laterality: bilateral Lung location: lower lobe of lung Pneumonia type: due to unspecified organism Qualified Code(s): J18.9 - Pneumonia, unspecified organism Code(s): J18.9 - Pneumonia, unspecified organism Status: Acute Assessment and Plan: See above (3) Sinusitis: Code(s): J32.9 - Chronic sinusitis, unspecified Status: Acute Assessment and Plan: See above (4) Dementia: Code(s): F03.90 - Unspecified dementia, unspecified severity, without behavioral disturbance, psychotic disturbance, mood disturbance, and anxiety Status: Acute Assessment and Plan: Continue Aricept. Hold Namenda as a it is a extended release tablet and cannot be given through NG (5) Hypertension: Code(s): I10 - Essential (primary) hypertension Status: Acute Assessment and Plan: Blood pressure soft patient currently on sedation Hold anti hypertensives (6) Electrolyte abnormality: Code(s): E87.8 - Other disorders of electrolyte and fluid balance, not elsewhere classified Status: Acute Assessment and Plan: low potassium improved after placement (7) Atrial fibrillation: Code(s): I48.91 - Unspecified atrial fibrillation Status: Acute Assessment and Plan: Currently in sinus rhythm Not on anticoagulation as an outpatient Continue aspirin Plan DVT prophylaxis -Lovenox Stress ulcer prophylaxis -PPI Nutrition -continue Tube Feeds Code Status - Full Code Total Critical Care Time - 30 minutes Due to a high probability of clinically significant, life threatening deterioration, the patient required my highest level of preparedness to intervene emergently and I personally spent this critical care time directly and personally managing the patient. This critical care time included obtaining a history; examining the patient; pulse oximetry; ordering and review of studies; arranging urgent treatment with development of a management plan; evaluation of patient's response to treatment; frequent reassessment; and discussions with other providers. It was exclusive of separately billable procedures and treating other patients and teaching time. Please see Assessment and Plan section and the rest of the note for further information on patient as
--- NOTE | 2022-08-17 12:04 | PCNFU ---
Nutrition Follow-Up Complete: Inadequate Oral Intake as related to mechanical ventilation as evidenced by NPO. Goal: Meet estimated nutritional needs Patient is meeting current goal. We will continue current goal. Pt current nutrition is Vital AF 1.2 at 45 ml/hr. Last recorded weight is 57.8 kg. Bowel Motility:+Bm reported 08/17 Labs Reviewed:Glu 170, Cr 0.6,BUN 27, Alb 3.4 Meds Noted:Precedex,Fentanyl, Zosyn,Solu Medrol, Lovenox. Skin: WNL Additional Notes: Patient remains on mechanical vent and tube feedings of Vital AF 1.2 at 45 ml/hr and tolerating. Tube feedings are providing 1188 kcals/74 gms protein/803 ml water. This is meeting 100% kcal and protein needs. Flush 30 ml q 4 hours. Agree with diet orders. Will monitor daily in ICU rounds and reassess every Saturday and Saturday.
--- NOTE | 2022-08-17 19:41 | PM.IMPN ---
Progress Note: A&P Assessment and Plan (1) Acute respiratory failure with hypoxia: Code(s): J96.01 - Acute respiratory failure with hypoxia Status: Acute Assessment and Plan: Patient presents with SOB and found to have Acute Respiratory failure secondary to pneumonia, pharyngitis, sinusitis and airway edema. Intubated for airway protection. -Patient was evaluated by ENT. No drainable abscess on imaging -Flu, RSV and COVID are negative -Lower extremity Dopplers were negative for DVT -Steroids and IV abx started. -BCx NGTD -Sputum Cx pending -Urine Legionella pneumococcal antigen are pending Continue full mechanical ventilation support to prevent hypoxemia/hypercarbia and end organ damage. Continue IV Decadron Continue Vanc, Zosyn and doxycycline Continue Bronchodilators (2) Pneumonia: Qualifiers: Laterality: bilateral Lung location: lower lobe of lung Pneumonia type: due to unspecified organism Qualified Code(s): J18.9 - Pneumonia, unspecified organism Code(s): J18.9 - Pneumonia, unspecified organism Status: Acute Assessment and Plan: As above. Chest CT shows no large central PE but groundglass opacities of the mid and lower lungs, compatible with pneumonia. (3) Sinusitis: Code(s): J32.9 - Chronic sinusitis, unspecified Status: Acute Assessment and Plan: As above. Soft tissue neck CT shows palatine tonsils have decreased somewhat in size but remain obscured by metal artifact and worsening paranasal sinus disease with nasopharyngeal fluid and mucosal enhancement/edema. New, small retropharyngeal effusion noted. (4) Dementia: Code(s): F03.90 - Unspecified dementia, unspecified severity, without behavioral disturbance, psychotic disturbance, mood disturbance, and anxiety Status: Acute Assessment and Plan: Sedated -Continue Aricept. -Hold Namenda (can't be given through NG) (5) Hypertension: Code(s): I10 - Essential (primary) hypertension Status: Acute Assessment and Plan: Patient's blood pressure was reviewed on 08/17 Blood pressure soft at times Will continue to hold home medications. (6) Electrolyte abnormality: Code(s): E87.8 - Other disorders of electrolyte and fluid balance, not elsewhere classified Status: Acute Assessment and Plan: Potassium normal now. mag 2.4 Follow (7) Atrial fibrillation: Code(s): I48.91 - Unspecified atrial fibrillation Status: Acute Assessment and Plan: Has a hx of AFib. -Currently in sinus rhythm -Not on anticoagulation as an outpatient -Continue aspirin -monitor on tele Plan DVT prophylaxis -Lovenox Stress ulcer prophylaxis -PPI Nutrition - Tube Feeds Code Status - Full Code Subjective Date/time seen: 08/17/22 19:41 Interval history: 81yo female with dementia, HTN and AFib here for shortness of breath and dound to have acute resp failure from PNA. Patient is intubated and sedated. Family in the room and they were updated. Patient stable on vent. No airleak when cuff taken down. Review of Systems Review of Systems: ROS unobtainable: Yes unobtainable due to endotracheal tube Exam Narrative: AF 97.8 143/66 53 19 97% MV Gen - intubated and sedated HEENT - ETT secured. Chest - mildly coarse anteriorly CV - RRR S1/S2. Tele showing occas sinus arrhythmia Abd - Soft, protuberant - Mina secured draining clear yellow urine Ext - No pedal edema Neuro - sedated Skin - Warm and dry Objective Data Vital Signs Vital Signs: Vital Signs - 24 hr 08/16/22 20:00 08/16/22 20:00 08/16/22 20:00 Temperature 97.8 F Pulse Rate 58 L 58 L Respiratory Rate 15 15 Blood Pressure 118/59 L Pulse Oximetry 98 98 Oxygen Delivery Mechanical Ventilation Fraction of Inspired Oxygen 45 45 08/16/22 20:30 08/16/22 20:45 08/16/22 20:00 Temperature Pulse Rate 86 81 60 Respiratory R
[2022-08-17] MEDS: dexmedeTOMIDine 400 MCG/100 ML 400 MCG/100 ML BAG 10.12 MCG IV CONT (21:10)
[2022-08-17] MEDS: DONEPEZIL HCL 10 MG TABLET FEED TUBE (21:13)
[2022-08-18] VITALS (40 sets, daily range): BP systolic 126–177; BP diastolic 60–79; PULSE 47–109; RESP 13–28; TEMP 36.4–36.7; O2SAT 95–99
[2022-08-18] MEDS: ALBUTEROL SULFATE NEB 2.5 MG/3 ML INH INHALATION ×4 (02:04→21:21)
[2022-08-18] MEDS: IPRATROPIUM BR 0.02% INH SOLN 0.5 MG/2.5 ML VIAL INHALATION ×4 (02:04→21:21)
[2022-08-18] MEDS: LORazepam INJ (*CRX) 2 MG/ML VIAL IV PUSH (02:45)
[2022-08-18] MEDS: PIPERACILLIN/TAZOBACTAM SOD 4.5 GM in SODIUM CHLORIDE 0.9% IV 100 ML 200 ML IVPB ×4 (05:00→23:06)
[2022-08-18] MEDS: dexmedeTOMIDine 400 MCG/100 ML 400 MCG/100 ML BAG 13.01 MCG IV CONT ×2 (05:18→13:22)
[2022-08-18 05:22] LABS: Alveolar/Arterial O2 Gradient 78.4 mmHg; Base Excess ABG 1.7 mEq/l (+/-2.0); Carboxyhemoglobin 0.3 % THb (0-2.0); Fractional Inspired Oxygen 30 %; HCO3 ABG 26.6 mEq/l (22.0-26.0); Methemoglobin ABG 0.1 %THb (0-1.5); Oxygen Content ABG 16.9 %vol (16.0-22.0); Oxygen Saturation ABG 96.5 % (95.0-100.0); Oxyhemoglobin 95.1 % THb (90.0-100.0); PO2 FiO2 Ratio Arterial Blood 2.83 %; Reduced Hemoglobin 4.5 %THb (0-5.0); Total Hemoglobin 12.6 g/dL (12.0-18.0)
[2022-08-18 05:25] LABS: Device VENTILATOR; Modified Allen's Test Unable to perform; Site Drawn RIGHT RADIAL
[2022-08-18 05:26] LABS: Arterial Blood Gas PEEP 5 cmH2O; Arterial Blood Gas Tidal Volume 300 ml; Arterial Blood Gas Vent Mode CMV; Arterial Blood Gas Ventilator rate 15 /MIN
[2022-08-18 05:55] LABS: Hematocrit 38.2 % (37.0-47.0); Hemoglobin 12.3 g/dL (12.0-15.0); Mean Corpuscular HGB Conc 32.2 g/dl (32-36); Mean Corpuscular Hemoglobin 30.3 pg (26-34); Mean Corpuscular Volume 94.1 fl (80-100); Mean Platelet Volume 9.8 fl (7.4-10.4); Platelet Count Result 264 k/mm3 (150-375); Red Blood Count 4.06 M/mm3 (4.2-5.4); Red Cell Distribution Width 12.2 % (11.5-14.5); White Blood Count 13.7 K/mm3 (4.5-10.0)
[2022-08-18 06:02] LABS: Alanine Aminotransferase 39 U/L (6-35); Albumin Level 3.5 g/dL (3.5-5.1); Alkaline Phosphatase 90 U/L (38-126); Anion Gap 5 mmol/L (8-16); Aspartate Amino Transferase 36 U/L (14-36); Bilirubin,Total 0.4 mg/dL (0.2-1.3); Blood Urea Nitrogen 26 mg/dL (7-17); Calcium 8.9 mg/dL (8.4-10.2); Carbon Dioxide 29 mmol/L (22-30); Chloride 106 mmol/L (98-107); Estimated Glomerular Filt Rate > 60; Glucose 148 mg/dL (65-110); Magnesium 2.2 mg/dL (1.6-2.3); Potassium 3.6 mmol/L (3.4-5.0); Sodium 140 mmol/L (137-145)
[2022-08-18 06:06] LABS: Vancomycin Trough 5.8 ug/mL (10.0-20.0)
[2022-08-18] MEDS: POTASSIUM CHLORIDE 20 MEQ PACKET (FOR LIQUID) 40 MEQ FEED TUBE (08:58)
[2022-08-18] MEDS: ENOXAPARIN 40 MG/0.4 ML SYRINGE SUB-Q (08:58)
[2022-08-18] MEDS: DOXYCYCLINE HYCLATE 100 MG TABLET FEED TUBE ×2 (08:58→22:16)
[2022-08-18] MEDS: PANTOPRAZOLE SODIUM IV 40 MG VIAL IV PUSH (08:59)
[2022-08-18] MEDS: ASPIRIN 325 MG TABLET FEED TUBE (08:59)
[2022-08-18] MEDS: MINERAL OIL/WHITE PETROLATUM OINTMENT 1 APPLIC EACH EYE ×2 (08:59→22:16)
[2022-08-18] MEDS: methylPREDNISolone SOD SUCC 125 MG VIAL 80 MG IV PUSH ×2 (09:11→22:16)
--- NOTE | 2022-08-18 09:46 | WPDINTPN ---
Progress Note: A&P Assessment and Plan (1) Acute respiratory failure with hypoxia: Code(s): J96.01 - Acute respiratory failure with hypoxia Status: Acute Assessment and Plan: Acute Respiratory failure secondary to pneumonia, pharyngitis, sinusitis, airway edema and swelling Continue full mechanical ventilation support to prevent hypoxemia/hypercarbia and end organ damage. Patient was evaluated by ENT. No drainable abscess on imaging Patient was treated with Decadron Continue vanc Zosyn and doxycycline Chest x-ray reviewed Low tidal volume ventilation strategy to prevent volutrauma 08/17 I assessed patient for a weaning trial but on deflation of ET tube cuff patient had no leak around it suggestive of airway edema Patient was resumed on steroids 08/18 patient had minimal leak around ETT on deflation of cuff with no significant drop in tidal volumes on the ventilator Will repeat CT scan of neck along with chest Continue Precedex Continue Bronchodilators Blood cultures, sputum cultures negative as of now Urine Legionella pneumococcal antigen are pending Flu. RSV and COVID are negative Lower extremity Dopplers were negative for DVT Soft tissue neck CT IMPRESSION: 1. The palatine tonsils have decreased somewhat in size but remain obscured by metal artifact. 2. Worsening paranasal sinus disease, with nasopharyngeal fluid and mucosal enhancement/edema. New, small retropharyngeal effusion. 3. Slightly improved pulmonary opacities. Chest CT IMPRESSION: 1. No large central pulmonary embolism. Evaluation of peripheral pulmonary arteries limited by motion artifact. 2: Patchy groundglass opacities of the mid and lower lungs, compatible with pneumonia. (2) Pneumonia: Qualifiers: Laterality: bilateral Lung location: lower lobe of lung Pneumonia type: due to unspecified organism Qualified Code(s): J18.9 - Pneumonia, unspecified organism Code(s): J18.9 - Pneumonia, unspecified organism Status: Acute Assessment and Plan: See above (3) Sinusitis: Code(s): J32.9 - Chronic sinusitis, unspecified Status: Acute Assessment and Plan: See above (4) Dementia: Code(s): F03.90 - Unspecified dementia, unspecified severity, without behavioral disturbance, psychotic disturbance, mood disturbance, and anxiety Status: Acute Assessment and Plan: Continue Aricept. Hold Namenda as a it is a extended release tablet and cannot be given through NG (5) Hypertension: Code(s): I10 - Essential (primary) hypertension Status: Acute Assessment and Plan: Blood pressure not elevated Will resume Atenolol (6) Electrolyte abnormality: Code(s): E87.8 - Other disorders of electrolyte and fluid balance, not elsewhere classified Status: Acute Assessment and Plan: low potassium improved after placement (7) Atrial fibrillation: Code(s): I48.91 - Unspecified atrial fibrillation Status: Acute Assessment and Plan: Currently in sinus rhythm Not on anticoagulation as an outpatient Continue aspirin Plan DVT prophylaxis -Lovenox Stress ulcer prophylaxis -PPI Nutrition -continue Tube Feeds Code Status - Full Code I spoke to patient's daughter and updated with patient's current status including no leak around ETT on deflation of cough and plan to repeat CT scan Total Critical Care Time - 32 minutes Due to a high probability of clinically significant, life threatening deterioration, the patient required my highest level of preparedness to intervene emergently and I personally spent this critical care time directly and personally managing the patient. This critical care time included obtaining a history; examining the patient; pulse oximetry; ordering and review of studies; arranging urgent treatment with development of a management plan; evaluation of patient's response to treatment; frequent reassessment; and discussions with other
[2022-08-18] MEDS: LABETALOL HCL INJ 100 MG/20 ML VIAL 20 MG IV PUSH ×2 (11:04→14:58)
[2022-08-18] MEDS: atenoloL 25 MG TABLET FEED TUBE (12:22)
--- NOTE | 2022-08-18 13:29 | PC.NURSE ---
Any charting done on this patient documented by Tegan De Luna RN between [id number] was actually done by Lexie Davey RN
[2022-08-18] MEDS: FENTANYL 2,500MCG/NS250ML(*CRX 2,500 MCG/250 ML BAG IV CONT (16:45)
[2022-08-18] MEDS: hydrALAZINE HCL 20 MG/ML VIAL IV PUSH (16:57)
[2022-08-18] MEDS: amLODIPine BESYLATE 5 MG TABLET 10 MG PO (16:57)
[2022-08-18] MEDS: PROPOFOL IV EMULSION 100 ML 1.7 MG (19:00)
--- NOTE | 2022-08-18 19:44 | PC.NURSE ---
Pt had a sudden episode of agitation. Biting ET tube, thrashing in bed, unable to be calmed with daughter bedside and RN. Four RNs bedside attempting to calm her and secure her so as to not self-extubate or injure herself; precedex and fentanyl titrated up during this time. Dr. Barry was called and informed of situation as well as sudden inc in fentanyl and pecedex needed to attempt to calm her. Telephone order for propofol received. Pt calmed post propofol initiation, one peripheral IV access lost otherwise no injuries or damage noted.
--- NOTE | 2022-08-18 20:10 | PM.IMPN ---
Progress Note: A&P Assessment and Plan (1) Acute respiratory failure with hypoxia: Code(s): J96.01 - Acute respiratory failure with hypoxia Status: Acute Assessment and Plan: Patient presents with SOB and found to have Acute Respiratory failure secondary to pneumonia, pharyngitis, sinusitis and airway edema. Intubated for airway protection. -Patient was evaluated by ENT. No drainable abscess on imaging -Flu, RSV and COVID are negative -Lower extremity Dopplers were negative for DVT -Steroids and IV abx started. -BCx NGTD -Sputum Cx pending -MRSA nasal swab negative -Urine Legionella pneumococcal antigen are pending Continue full mechanical ventilation support to prevent hypoxemia/hypercarbia and end organ damage. Continue IV Solu-Medrol Continue Vanc, Zosyn and doxycycline Continue Bronchodilators (2) Pneumonia: Qualifiers: Laterality: bilateral Lung location: lower lobe of lung Pneumonia type: due to unspecified organism Qualified Code(s): J18.9 - Pneumonia, unspecified organism Code(s): J18.9 - Pneumonia, unspecified organism Status: Acute Assessment and Plan: -08/[address] shows no large central PE but groundglass opacities of the mid and lower lungs, compatible with pneumonia. -08/18 Neck/Chest CT showing scattered atelectasis in the lingula, right middle and bilateral lower lobes. Additional mosaic attenuation most likely additional subsegmental atelectasis with scattered air trapping related to either small airway disease or bronchiolitis. Pneumonia or pulmonary edema considered less likely. As above. Continue IV abx (3) Sinusitis: Code(s): J32.9 - Chronic sinusitis, unspecified Status: Acute Assessment and Plan: -08/[address] shows palatine tonsils have decreased somewhat in size but remain obscured by metal artifact and worsening paranasal sinus disease with nasopharyngeal fluid and mucosal enhancement/edema. New, small retropharyngeal effusion noted. -08/18 Chest/Neck CT showing no gas within the nasopharynx, oropharynx, pharynx or proximal trachea cephalad to the bulb of the endotracheal tube which appears largely due to fluid/mucus filling the airway. This limits assessment for any thickening of the parapharyngeal soft tissues although there is no evident peripheral expansion of the parapharyngeal soft tissues. As above. Continue IV abx (4) Dementia: Code(s): F03.90 - Unspecified dementia, unspecified severity, without behavioral disturbance, psychotic disturbance, mood disturbance, and anxiety Status: Acute Assessment and Plan: Sedated -Continue Aricept. -Hold Namenda (can't be given through NG) (5) Hypertension: Code(s): I10 - Essential (primary) hypertension Status: Acute Assessment and Plan: Patient's blood pressure was reviewed on 08/18 Blood pressure higher now related to agitation? or steroids? Atenolol and Norvasc resumed. Follow (6) Electrolyte abnormality: Code(s): E87.8 - Other disorders of electrolyte and fluid balance, not elsewhere classified Status: Acute Assessment and Plan: Potassium normal now. mag 2.2 Follow (7) Atrial fibrillation: Code(s): I48.91 - Unspecified atrial fibrillation Status: Acute Assessment and Plan: Has a hx of AFib. -Currently in sinus rhythm -Not on anticoagulation as an outpatient -Continue aspirin -monitor on tele (8) Dilated gallbladder: Code(s): K82.8 - Other specified diseases of gallbladder Status: Acute Assessment and Plan: 08/18 CT chest/neck showing dilated gallbladder with suggestion of either mild wall thickening or minimal pericholecystic ascites. This could be due to either acute cholecystitis or artifact of fasting state. Consider further evaluation with either right upper quadrant ultrasound or HIDA scan. -felt related to fasting -check RUQ US Plan
[2022-08-18] MEDS: dexmedeTOMIDine 400 MCG/100 ML 400 MCG/100 ML BAG 11.56 MCG IV CONT (20:40)
[2022-08-18] MEDS: PROPOFOL IV EMULSION 100 ML 3.47 MG IV CONT (22:53)
[2022-08-18] MEDS: DONEPEZIL HCL 10 MG TABLET FEED TUBE (23:02)
[2022-08-18 23:52] LABS: Triglycerides 309 mg/dL (<150)
[2022-08-19] VITALS (41 sets, daily range): BP systolic 101–144; BP diastolic 52–68; PULSE 54–116; RESP 15–22; TEMP 36.1–36.9; O2SAT 96–99
[2022-08-19 03:35] LABS: Mean Corpuscular HGB Conc 32.5 g/dl (32-36); Mean Corpuscular Volume 95.5 fl (80-100); Mean Platelet Volume 9.8 fl (7.4-10.4); Platelet Count Result 248 k/mm3 (150-375); Red Blood Count 4.19 M/mm3 (4.2-5.4); Red Cell Distribution Width 12.5 % (11.5-14.5); White Blood Count 12.1 K/mm3 (4.5-10.0)
[2022-08-19 03:54] LABS: Alanine Aminotransferase 35 U/L (6-35); Albumin Level 3.2 g/dL (3.5-5.1); Alkaline Phosphatase 83 U/L (38-126); Anion Gap 6 mmol/L (8-16); Aspartate Amino Transferase 28 U/L (14-36); Bilirubin,Total 0.3 mg/dL (0.2-1.3); Blood Urea Nitrogen 21 mg/dL (7-17); Calcium 8.8 mg/dL (8.4-10.2); Carbon Dioxide 27 mmol/L (22-30); Chloride 103 mmol/L (98-107); Estimated Glomerular Filt Rate > 60; Glucose 134 mg/dL (65-110); Magnesium 2.1 mg/dL (1.6-2.3); Potassium 3.8 mmol/L (3.4-5.0); Sodium 136 mmol/L (137-145)
[2022-08-19] MEDS: PIPERACILLIN/TAZOBACTAM SOD 4.5 GM in SODIUM CHLORIDE 0.9% IV 100 ML 200 ML IVPB ×3 (04:40→15:40)
[2022-08-19 05:34] LABS: Alveolar/Arterial O2 Gradient 76.4 mmHg; Base Excess ABG 3.7 mEq/l (+/-2.0); Fractional Inspired Oxygen 30 %; HCO3 ABG 28.6 mEq/l (22.0-26.0); Oxygen Content ABG 20.3 %vol (16.0-22.0); Oxygen Saturation ABG 96.6 % (95.0-100.0); Oxyhemoglobin 95.9 % THb (90.0-100.0); PCO2 ABG 44.3 mmHg (35.0-45.0); PO2 ABG 85.5 mmHg (80.0-100.0); PO2 FiO2 Ratio Arterial Blood 2.85 %; pH ABG 7.428 (7.350-7.450)
[2022-08-19 05:35] LABS: Device VENTILATOR; Modified Allen's Test Unable to perform; Site Drawn RIGHT RADIAL
[2022-08-19 05:36] LABS: Arterial Blood Gas PEEP 5 cmH2O; Arterial Blood Gas Tidal Volume 300 ml; Arterial Blood Gas Vent Mode CMV; Arterial Blood Gas Ventilator rate 15 /MIN
[2022-08-19] MEDS: dexmedeTOMIDine 400 MCG/100 ML 400 MCG/100 ML BAG 10.12 MCG IV CONT ×2 (06:34→17:13)
[2022-08-19] MEDS: IPRATROPIUM BR 0.02% INH SOLN 0.5 MG/2.5 ML VIAL INHALATION ×4 (07:59→20:35)
[2022-08-19] MEDS: ALBUTEROL SULFATE NEB 2.5 MG/3 ML INH INHALATION ×4 (07:59→20:35)
[2022-08-19] MEDS: ASPIRIN 325 MG TABLET FEED TUBE (08:44)
[2022-08-19] MEDS: DOXYCYCLINE HYCLATE 100 MG TABLET FEED TUBE ×2 (08:45→20:18)
[2022-08-19] MEDS: atenoloL 25 MG TABLET FEED TUBE (08:45)
[2022-08-19] MEDS: ENOXAPARIN 40 MG/0.4 ML SYRINGE SUB-Q (08:45)
[2022-08-19] MEDS: amLODIPine BESYLATE 5 MG TABLET 10 MG PO (08:45)
[2022-08-19] MEDS: PANTOPRAZOLE SODIUM IV 40 MG VIAL IV PUSH (08:46)
[2022-08-19] MEDS: MINERAL OIL/WHITE PETROLATUM OINTMENT 1 APPLIC EACH EYE ×2 (08:46→20:18)
--- NOTE | 2022-08-19 10:24 | WPDINTPN ---
Progress Note: A&P Assessment and Plan (1) Acute respiratory failure with hypoxia: Code(s): J96.01 - Acute respiratory failure with hypoxia Status: Acute Assessment and Plan: Acute Respiratory failure secondary to pneumonia, pharyngitis, sinusitis, airway edema and swelling Continue full mechanical ventilation support to prevent hypoxemia/hypercarbia and end organ damage. Patient was evaluated by ENT. No drainable abscess on imaging Patient was treated with Decadron 08/17 I assessed patient for a weaning trial but on deflation of ET tube cuff patient had no leak around it suggestive of airway edema Patient was resumed on steroids 08/18 patient had minimal leak around ETT on deflation of cuff with no significant drop in tidal volumes on the ventilator CT soft tissue neck IMPRESSION: 1. No gas within the nasopharynx, oropharynx, pharynx or proximal trachea cephalad to the bulb of the endotracheal tube which appears largely due to fluid/mucus filling the airway. This limits assessment for any thickening of the parapharyngeal soft tissues although there is no evident peripheral expansion of the parapharyngeal soft tissues. 2. Scattered atelectasis in the lingula, right middle and bilateral lower lobes. Additional mosaic attenuation most likely additional subsegmental atelectasis with scattered air trapping related to either small airway disease or bronchiolitis. Pneumonia or pulmonary edema considered less likely. Discussed with ENT. Recommend continued treatment with steroids antibiotics at this time No cuff leak again on exam today Continue Zosyn and doxycycline. DC vancomycin Continue Solu-Medrol Chest x-ray reviewed Low tidal volume ventilation strategy to prevent volutrauma Continue Bronchodilators Blood cultures, sputum cultures negative as of now Urine Legionella pneumococcal antigen are pending Flu. RSV and COVID are negative Lower extremity Dopplers were negative for DVT Soft tissue neck CT IMPRESSION: 1. The palatine tonsils have decreased somewhat in size but remain obscured by metal artifact. 2. Worsening paranasal sinus disease, with nasopharyngeal fluid and mucosal enhancement/edema. New, small retropharyngeal effusion. 3. Slightly improved pulmonary opacities. Chest CT IMPRESSION: 1. No large central pulmonary embolism. Evaluation of peripheral pulmonary arteries limited by motion artifact. 2: Patchy groundglass opacities of the mid and lower lungs, compatible with pneumonia. (2) Pneumonia: Qualifiers: Laterality: bilateral Lung location: lower lobe of lung Pneumonia type: due to unspecified organism Qualified Code(s): J18.9 - Pneumonia, unspecified organism Code(s): J18.9 - Pneumonia, unspecified organism Status: Acute Assessment and Plan: See above (3) Sinusitis: Code(s): J32.9 - Chronic sinusitis, unspecified Status: Acute Assessment and Plan: See above (4) Dementia: Code(s): F03.90 - Unspecified dementia, unspecified severity, without behavioral disturbance, psychotic disturbance, mood disturbance, and anxiety Status: Acute Assessment and Plan: Continue Aricept. Hold Namenda as a it is a extended release tablet and cannot be given through NG (5) Hypertension: Code(s): I10 - Essential (primary) hypertension Status: Acute Assessment and Plan: Blood pressure not elevated Continue Atenolol (6) Electrolyte abnormality: Code(s): E87.8 - Other disorders of electrolyte and fluid balance, not elsewhere classified Status: Acute Assessment and Plan: Replace low potassium (7) Atrial fibrillation: Code(s): I48.91 - Unspecified atrial fibrillation Status: Acute Assessment and Plan: Currently in sinus rhythm Not on anticoagulation as an outpatient Continue aspirin (8) Dilated gallbladder: Code(s): K82.8 - Other specified diseases of gallbladder Sta
[2022-08-19] MEDS: METOCLOPRAMIDE HCL 10 MG/10 ML SOLN UDC FEED TUBE ×3 (10:26→20:16)
[2022-08-19] MEDS: methylPREDNISolone SOD SUCC 125 MG VIAL 80 MG IV PUSH ×2 (10:28→20:21)
[2022-08-19] MEDS: PROPOFOL IV EMULSION 100 ML 8.67 MG IV CONT (10:32)
[2022-08-19] MEDS: POTASSIUM CHLORIDE 20 MEQ PACKET (FOR LIQUID) FEED TUBE (10:35)
[2022-08-19] MEDS: FENTANYL 2,500MCG/NS250ML(*CRX 2,500 MCG/250 ML BAG 7.5 MCG IV CONT (13:34)
[2022-08-19] MEDS: PROPOFOL IV EMULSION 100 ML 10.4 MG IV CONT (17:36)
--- NOTE | 2022-08-19 19:50 | PM.IMPN ---
Progress Note: A&P Assessment and Plan (1) Acute respiratory failure with hypoxia: Code(s): J96.01 - Acute respiratory failure with hypoxia Status: Acute Assessment and Plan: Patient presents with SOB and found to have Acute Respiratory failure secondary to pneumonia, pharyngitis, sinusitis and airway edema. Intubated for airway protection. -Patient was evaluated by ENT.? No drainable abscess on imaging -Flu, RSV and COVID are negative -Lower extremity Dopplers were negative for DVT -Steroids and IV abx started. -BCx NGTD -Sputum Cx and MRSA nasal swab negative -Urine Legionella and pneumococcal antigen are pending Continue full mechanical ventilation support to prevent hypoxemia/hypercarbia and end organ damage. Continue IV Solu-Medrol Continue Zosyn and doxycycline Continue Bronchodilators (2) Pneumonia: Qualifiers: Laterality: bilateral Lung location: lower lobe of lung Pneumonia type: due to unspecified organism Qualified Code(s): J18.9 - Pneumonia, unspecified organism Code(s): J18.9 - Pneumonia, unspecified organism Status: Acute Assessment and Plan: -08/[address] shows no large central PE but groundglass opacities of the mid and lower lungs, compatible with pneumonia. -08/18 Neck/Chest CT showing scattered atelectasis in the lingula, right middle and bilateral lower lobes. Additional mosaic attenuation most likely additional subsegmental atelectasis with scattered air trapping related to either small airway disease or bronchiolitis. Pneumonia or pulmonary edema considered less likely. As above. Continue IV abx (3) Sinusitis: Code(s): J32.9 - Chronic sinusitis, unspecified Status: Acute Assessment and Plan: -08/[address] shows palatine tonsils have decreased somewhat in size but remain obscured by metal artifact and worsening paranasal sinus disease with nasopharyngeal fluid and mucosal enhancement/edema. New, small retropharyngeal effusion noted. -08/18 Chest/Neck CT showing no gas within the nasopharynx, oropharynx, pharynx or proximal trachea cephalad to the bulb of the endotracheal tube which appears largely due to fluid/mucus filling the airway. This limits assessment for any thickening of the parapharyngeal soft tissues although there is no evident peripheral expansion of the parapharyngeal soft tissues. As above. Continue IV abx (4) Dementia: Code(s): F03.90 - Unspecified dementia, unspecified severity, without behavioral disturbance, psychotic disturbance, mood disturbance, and anxiety Status: Acute Assessment and Plan: Sedated -Continue Aricept. -Hold Namenda (can't be given through NG) (5) Hypertension: Code(s): I10 - Essential (primary) hypertension Status: Acute Assessment and Plan: Patient's blood pressure was reviewed on 08/19 Blood pressure well controlled Continue Atenolol and Norvasc Follow (6) Electrolyte abnormality: Code(s): E87.8 - Other disorders of electrolyte and fluid balance, not elsewhere classified Status: Acute Assessment and Plan: Potassium normal now Follow (7) Atrial fibrillation: Code(s): I48.91 - Unspecified atrial fibrillation Status: Acute Assessment and Plan: Has a hx of AFib. -Currently in sinus rhythm -Not on anticoagulation as an outpatient -Continue aspirin -monitor on tele (8) Dilated gallbladder: Code(s): K82.8 - Other specified diseases of gallbladder Status: Acute Assessment and Plan: 08/18 CT chest/neck showing dilated gallbladder with suggestion of either mild wall thickening or minimal pericholecystic ascites. This could be due to either acute cholecystitis or artifact of fasting state. Consider further evaluation with either right upper quadrant ultrasound or HIDA scan. -RUQ US showing dilated GB but no evidence of acute cholecystitis. -felt related to fasting
[2022-08-19] MEDS: DONEPEZIL HCL 10 MG TABLET FEED TUBE (20:17)
[2022-08-19] MEDS: PIPERACILLIN/TAZOBACTAM SOD 4.5 GM in SODIUM CHLORIDE 0.9% IV 100 ML IVPB (21:39)
[2022-08-20] VITALS (36 sets, daily range): BP systolic 80–157; BP diastolic 48–76; PULSE 62–93; RESP 15–21; TEMP 36.1–37.2; O2SAT 95–100
[2022-08-20] MEDS: ALBUTEROL SULFATE NEB 2.5 MG/3 ML INH INHALATION ×4 (02:06→21:37)
[2022-08-20] MEDS: IPRATROPIUM BR 0.02% INH SOLN 0.5 MG/2.5 ML VIAL INHALATION ×4 (02:06→21:37)
[2022-08-20] MEDS: dexmedeTOMIDine 400 MCG/100 ML 400 MCG/100 ML BAG 10.12 MCG IV CONT (03:05)
[2022-08-20 03:48] LABS: Hematocrit 38.2 % (37.0-47.0); Hemoglobin 12.4 g/dL (12.0-15.0); Mean Corpuscular HGB Conc 32.5 g/dl (32-36); Mean Corpuscular Hemoglobin 30.2 pg (26-34); Mean Corpuscular Volume 93.2 fl (80-100); Mean Platelet Volume 10.4 fl (7.4-10.4); Platelet Count Result 264 k/mm3 (150-375); White Blood Count 11.7 K/mm3 (4.5-10.0)
[2022-08-20] MEDS: PIPERACILLIN/TAZOBACTAM SOD 4.5 GM in SODIUM CHLORIDE 0.9% IV 100 ML IVPB ×4 (03:53→21:10)
[2022-08-20 04:03] LABS: Alanine Aminotransferase 53 U/L (6-35); Albumin Level 3.2 g/dL (3.5-5.1); Alkaline Phosphatase 79 U/L (38-126); Anion Gap 4 mmol/L (8-16); Aspartate Amino Transferase 41 U/L (14-36); Bilirubin,Total 0.3 mg/dL (0.2-1.3); Blood Urea Nitrogen 23 mg/dL (7-17); Calcium 8.7 mg/dL (8.4-10.2); Carbon Dioxide 28 mmol/L (22-30); Chloride 104 mmol/L (98-107); Estimated Glomerular Filt Rate > 60; Glucose 159 mg/dL (65-110); Magnesium 2.3 mg/dL (1.6-2.3); Potassium 3.6 mmol/L (3.4-5.0); Sodium 136 mmol/L (137-145)
[2022-08-20] MEDS: PROPOFOL IV EMULSION 100 ML 10.4 MG IV CONT ×2 (04:30→12:42)
[2022-08-20] MEDS: ENOXAPARIN 40 MG/0.4 ML SYRINGE SUB-Q (08:47)
[2022-08-20] MEDS: MINERAL OIL/WHITE PETROLATUM OINTMENT 1 APPLIC EACH EYE ×2 (08:47→20:48)
[2022-08-20] MEDS: METOCLOPRAMIDE HCL 10 MG/10 ML SOLN UDC FEED TUBE ×3 (08:48→20:48)
[2022-08-20] MEDS: DOXYCYCLINE HYCLATE 100 MG TABLET FEED TUBE ×2 (08:48→20:49)
[2022-08-20] MEDS: amLODIPine BESYLATE 5 MG TABLET 10 MG PO (08:48)
[2022-08-20] MEDS: ASPIRIN 325 MG TABLET FEED TUBE (08:48)
[2022-08-20] MEDS: atenoloL 25 MG TABLET FEED TUBE (08:49)
[2022-08-20] MEDS: PANTOPRAZOLE SODIUM IV 40 MG VIAL IV PUSH (08:49)
[2022-08-20] MEDS: methylPREDNISolone SOD SUCC 125 MG VIAL 80 MG IV PUSH ×2 (09:00→21:10)
--- NOTE | 2022-08-20 10:03 | WPDINTPN ---
Progress Note: A&P Assessment and Plan (1) Acute respiratory failure with hypoxia: Code(s): J96.01 - Acute respiratory failure with hypoxia Status: Acute Assessment and Plan: Acute Respiratory failure secondary to pneumonia, pharyngitis, sinusitis, airway edema and swelling Continue full mechanical ventilation support to prevent hypoxemia/hypercarbia and end organ damage. Patient was evaluated by ENT. No drainable abscess on imaging Patient was treated with Decadron 08/17 I assessed patient for a weaning trial but on deflation of ET tube cuff patient had no leak around it suggestive of airway edema Patient was resumed on steroids 08/18 patient had minimal leak around ETT on deflation of cuff with no significant drop in tidal volumes on the ventilator CT soft tissue neck IMPRESSION: 1. No gas within the nasopharynx, oropharynx, pharynx or proximal trachea cephalad to the bulb of the endotracheal tube which appears largely due to fluid/mucus filling the airway. This limits assessment for any thickening of the parapharyngeal soft tissues although there is no evident peripheral expansion of the parapharyngeal soft tissues. 2. Scattered atelectasis in the lingula, right middle and bilateral lower lobes. Additional mosaic attenuation most likely additional subsegmental atelectasis with scattered air trapping related to either small airway disease or bronchiolitis. Pneumonia or pulmonary edema considered less likely. Discussed with ENT. Recommend continued treatment with steroids antibiotics at this time 08/20 No cuff leak again on exam today. I deflated the cuff and there was no significant change in the tidal volume on the ventilator. Did not hear any significant leak around the cuff again today Continue Zosyn and doxycycline. Vancomycin has been discontinued Continue Solu-Medrol Chest x-ray reviewed Low tidal volume ventilation strategy to prevent volutrauma Continue Bronchodilators Blood cultures, sputum cultures negative as of now Urine Legionella pneumococcal antigen are pending Flu. RSV and COVID are negative Lower extremity Dopplers were negative for DVT Soft tissue neck CT IMPRESSION: 1. The palatine tonsils have decreased somewhat in size but remain obscured by metal artifact. 2. Worsening paranasal sinus disease, with nasopharyngeal fluid and mucosal enhancement/edema. New, small retropharyngeal effusion. 3. Slightly improved pulmonary opacities. Chest CT IMPRESSION: 1. No large central pulmonary embolism. Evaluation of peripheral pulmonary arteries limited by motion artifact. 2: Patchy groundglass opacities of the mid and lower lungs, compatible with pneumonia. (2) Pneumonia: Qualifiers: Laterality: bilateral Lung location: lower lobe of lung Pneumonia type: due to unspecified organism Qualified Code(s): J18.9 - Pneumonia, unspecified organism Code(s): J18.9 - Pneumonia, unspecified organism Status: Acute Assessment and Plan: See above (3) Sinusitis: Code(s): J32.9 - Chronic sinusitis, unspecified Status: Acute Assessment and Plan: See above (4) Dementia: Code(s): F03.90 - Unspecified dementia, unspecified severity, without behavioral disturbance, psychotic disturbance, mood disturbance, and anxiety Status: Acute Assessment and Plan: Continue Aricept. Hold Namenda as a it is a extended release tablet and cannot be given through NG (5) Hypertension: Code(s): I10 - Essential (primary) hypertension Status: Acute Assessment and Plan: Blood pressure not elevated Continue Atenolol (6) Electrolyte abnormality: Code(s): E87.8 - Other disorders of electrolyte and fluid balance, not elsewhere classified Status: Acute Assessment and Plan: Replace low potassium (7) Atrial fibrillation: Code(s): I48.91 - Unspecified atrial fibrillation Status: Acute Assessment and Plan: Maureen
--- NOTE | 2022-08-20 11:15 | PCFNICU ---
ICU Rounding Note: Pt current nutrition is NPO. Last recorded weight is 58.5 kg. Bowel Motility:+BM reported 08/18 Labs Reviewed:Glu 159, ALb 3.2,Na 136, BUN 23 Meds Noted:Reglan, Fentanyl, Propofol 30 mcgs or 10.4 ml/wy=755 kcals. Skin: WNL Additional Notes: Patient currently NPO for HIDA scan today. When restarting tube feedings recommend Vital AF 1.2 at 35 ml/hr. Propofol providing an additional 275 kcals. Flush 30 ml q 4 hours. Agree with diet orders. Following daily in ICU rounds. Will monitor daily in ICU rounds and reassess every Saturday and Saturday.
[2022-08-20] MEDS: LIDOCAINE HCL 1% PF INJ 5 ML VIAL INFILTRATE (11:45)
[2022-08-20 12:37] LABS: Glucose Point of Care 94 mg/dl (65-105)
[2022-08-20] MEDS: POTASSIUM CHLORIDE 20 MEQ PACKET (FOR LIQUID) 40 MEQ FEED TUBE (15:02)
[2022-08-20] MEDS: CENTRAL LINE FLUSH 10 ML IV PUSH ×2 (15:05→20:49)
[2022-08-20 18:08] LABS: Legionella pneumophila Ag Ur Not Detected (Not Detected)
[2022-08-20] MEDS: PROPOFOL IV EMULSION 100 ML 15.61 MG IV CONT (20:47)
[2022-08-20] MEDS: DONEPEZIL HCL 10 MG TABLET FEED TUBE (20:49)
[2022-08-21] VITALS (42 sets, daily range): BP systolic 107–145; BP diastolic 51–66; PULSE 61–83; RESP 10–20; TEMP 36.4–37.4; O2SAT 95–100
[2022-08-21 00:19] LABS: Glucose Point of Care 104 mg/dl (65-105)
[2022-08-21] MEDS: PROPOFOL IV EMULSION 100 ML 15.61 MG IV CONT (01:16)
[2022-08-21] MEDS: FENTANYL 2,500MCG/NS250ML(*CRX 2,500 MCG/250 ML BAG 15 MCG IV CONT ×2 (01:38→15:32)
[2022-08-21] MEDS: IPRATROPIUM BR 0.02% INH SOLN 0.5 MG/2.5 ML VIAL INHALATION ×4 (03:01→21:52)
[2022-08-21] MEDS: ALBUTEROL SULFATE NEB 2.5 MG/3 ML INH INHALATION ×4 (03:01→21:52)
[2022-08-21] MEDS: PIPERACILLIN/TAZOBACTAM SOD 4.5 GM in SODIUM CHLORIDE 0.9% IV 100 ML 200 ML IVPB ×4 (03:07→20:46)
[2022-08-21 05:04] LABS: Hematocrit 37.5 % (37.0-47.0); Hemoglobin 12.1 g/dL (12.0-15.0); Mean Corpuscular HGB Conc 32.3 g/dl (32-36); Mean Corpuscular Hemoglobin 31.3 pg (26-34); Mean Corpuscular Volume 96.9 fl (80-100); Platelet Count Result 269 k/mm3 (150-375); Red Blood Count 3.87 M/mm3 (4.2-5.4); Red Cell Distribution Width 12.7 % (11.5-14.5); White Blood Count 12.9 K/mm3 (4.5-10.0)
[2022-08-21 05:09] LABS: Triglycerides 430 mg/dL (<150)
[2022-08-21 05:19] LABS: Alanine Aminotransferase 79 U/L (6-35); Alkaline Phosphatase 70 U/L (38-126); Anion Gap 4 mmol/L (8-16); Aspartate Amino Transferase 54 U/L (14-36); Bilirubin,Total 0.5 mg/dL (0.2-1.3); Blood Urea Nitrogen 25 mg/dL (7-17); Calcium 8.4 mg/dL (8.4-10.2); Carbon Dioxide 27 mmol/L (22-30); Chloride 109 mmol/L (98-107); Estimated Glomerular Filt Rate > 60; Glucose 153 mg/dL (65-110); Potassium 4.2 mmol/L (3.4-5.0); Sodium 140 mmol/L (137-145)
[2022-08-21] MEDS: CENTRAL LINE FLUSH 10 ML IV PUSH ×3 (06:11→20:46)
[2022-08-21] MEDS: METOCLOPRAMIDE HCL 10 MG/10 ML SOLN UDC FEED TUBE ×3 (08:10→21:00)
[2022-08-21] MEDS: ASPIRIN 325 MG TABLET FEED TUBE (08:11)
[2022-08-21] MEDS: amLODIPine BESYLATE 5 MG TABLET 10 MG PO (08:11)
[2022-08-21] MEDS: ENOXAPARIN 40 MG/0.4 ML SYRINGE SUB-Q (08:12)
[2022-08-21] MEDS: MINERAL OIL/WHITE PETROLATUM OINTMENT 1 APPLIC EACH EYE ×2 (08:12→20:46)
[2022-08-21] MEDS: atenoloL 25 MG TABLET FEED TUBE (08:12)
[2022-08-21] MEDS: PANTOPRAZOLE SODIUM IV 40 MG VIAL IV PUSH (08:12)
[2022-08-21] MEDS: DOXYCYCLINE HYCLATE 100 MG TABLET FEED TUBE (08:13)
[2022-08-21] MEDS: PROPOFOL IV EMULSION 100 ML 13.87 MG IV CONT (08:14)
[2022-08-21] MEDS: methylPREDNISolone SOD SUCC 125 MG VIAL 80 MG IV PUSH ×2 (08:57→20:46)
[2022-08-21] MEDS: dexmedeTOMIDine 400 MCG/100 ML 400 MCG/100 ML BAG 8.78 MCG IV CONT ×2 (09:39→19:05)
--- NOTE | 2022-08-21 11:39 | PCNFU ---
Nutrition Follow-Up Complete: Inadequate Oral Intake as related to mechanical ventilation as evidenced by NPO. Goal: Meet estimated nutritional needs Patient is meeting current goal. We will continue current goal. Pt current nutrition is Vital AF 1.2 at 45 ml/hr Last recorded weight is 58.5 kg. Bowel Motility:+BM reported 08/21 Labs Reviewed:TG 430, BUN 25, Glu 153, Alb 3.0 Meds Noted:Precedex, Reglan, Fentanyl, Lovenox,Protonix,Zosyn. Skin: WNL Additional Notes: Patient remains on mechanical vent and tube feedings have been increased to goal rate of Vital AF 1.2 at 45 ml/hr. Propofol has been discontinued. Current tube feeding is providing 1188 kcals/74 gms protein/803 ml water. Meeting 100% kcal and protein needs. Flush 30 ml q 4 hours. Agree with diet orders. Will monitor daily in ICU rounds and reassess every Saturday and Saturday.
--- NOTE | 2022-08-21 11:52 | WPDINTPN ---
Progress Note: A&P Assessment and Plan (1) Acute respiratory failure with hypoxia: Code(s): J96.01 - Acute respiratory failure with hypoxia Status: Acute Assessment and Plan: Acute Respiratory failure secondary to pneumonia, pharyngitis, sinusitis, airway edema and swelling Continue full mechanical ventilation support to prevent hypoxemia/hypercarbia and end organ damage. Patient was evaluated by ENT. No drainable abscess on imaging Patient was treated with Decadron 08/17 I assessed patient for a weaning trial but on deflation of ET tube cuff patient had no leak around it suggestive of airway edema Patient was resumed on steroids 08/18 patient had minimal leak around ETT on deflation of cuff with no significant drop in tidal volumes on the ventilator CT soft tissue neck IMPRESSION: 1. No gas within the nasopharynx, oropharynx, pharynx or proximal trachea cephalad to the bulb of the endotracheal tube which appears largely due to fluid/mucus filling the airway. This limits assessment for any thickening of the parapharyngeal soft tissues although there is no evident peripheral expansion of the parapharyngeal soft tissues. 2. Scattered atelectasis in the lingula, right middle and bilateral lower lobes. Additional mosaic attenuation most likely additional subsegmental atelectasis with scattered air trapping related to either small airway disease or bronchiolitis. Pneumonia or pulmonary edema considered less likely. 08/18: Discussed with ENT. Recommend continued treatment with steroids antibiotics at this time 08/20 and 08/21: No cuff leak again on exam today. I deflated the cuff and there was no significant change in the tidal volume on the ventilator. Did not hear any significant leak around the cuff again today, I did it in the presence of for respiratory therapist, Ashley Continue Zosyn and doxycycline. Vancomycin has been discontinued Continue Solu-Medrol per ENT Chest x-ray reviewed Low tidal volume ventilation strategy to prevent volutrauma Continue Bronchodilators Blood cultures, sputum cultures negative as of now -Urine pneumococcal antigen is negative, -urine Legionella antigen is pending -mycoplasma IgM levels are pending Influenza A and B, RSV and COVID were negative on admission 08/15: Lower extremity Dopplers were negative for DVT 08/15: Soft tissue neck CT IMPRESSION: 1. The palatine tonsils have decreased somewhat in size but remain obscured by metal artifact. 2. Worsening paranasal sinus disease, with nasopharyngeal fluid and mucosal enhancement/edema. New, small retropharyngeal effusion. 3. Slightly improved pulmonary opacities. 08/15Ches CTA IMPRESSION: 1. No large central pulmonary embolism. Evaluation of peripheral pulmonary arteries limited by motion artifact. 2: Patchy groundglass opacities of the mid and lower lungs, compatible with pneumonia. (2) Pneumonia: Qualifiers: Laterality: bilateral Lung location: lower lobe of lung Pneumonia type: due to unspecified organism Qualified Code(s): J18.9 - Pneumonia, unspecified organism Code(s): J18.9 - Pneumonia, unspecified organism Status: Acute Assessment and Plan: See above (3) Sinusitis: Code(s): J32.9 - Chronic sinusitis, unspecified Status: Acute Assessment and Plan: See above (4) Dementia: Code(s): F03.90 - Unspecified dementia, unspecified severity, without behavioral disturbance, psychotic disturbance, mood disturbance, and anxiety Status: Acute Assessment and Plan: Continue Aricept. Hold Namenda as a it is a extended release tablet and cannot be given through NG (5) Hypertension: Code(s): I10 - Essential (primary) hypertension Status: Acute Assessment and Plan: Continue amlodipine, atenolol -blood pressures are stable with these medications (6) Electrolyte abnormality: Code(s): E87.8 - Other disorders of electrolyte and fluid hal
[2022-08-21 18:05] LABS: Mycoplasma IgM Antibody Titer 69 U/mL (<770)
--- NOTE | 2022-08-21 20:09 | PM.IMPN ---
Progress Note: A&P Assessment and Plan (1) Acute respiratory failure with hypoxia: Code(s): J96.01 - Acute respiratory failure with hypoxia Status: Acute Assessment and Plan: Patient presents with SOB and found to have Acute Respiratory failure secondary to pneumonia, pharyngitis, sinusitis and airway edema. Intubated for airway protection. -Patient was evaluated by ENT.? No drainable abscess on imaging -Flu, RSV and COVID are negative -Lower extremity Dopplers were negative for DVT -Steroids and IV abx started. -BCx NGTD -Sputum Cx and MRSA nasal swab negative -Mycoplasma IgM and Urine Legionella negative;pneumococcal antigen pending -Still no air leak with taking the cuff down Continue full mechanical ventilation Continue IV Solu-Medrol Continue Zosyn and doxycycline Continue Bronchodilators (2) Pneumonia: Qualifiers: Laterality: bilateral Lung location: lower lobe of lung Pneumonia type: due to unspecified organism Qualified Code(s): J18.9 - Pneumonia, unspecified organism Code(s): J18.9 - Pneumonia, unspecified organism Status: Acute Assessment and Plan: -08/[address] shows no large central PE but groundglass opacities of the mid and lower lungs, compatible with pneumonia. -08/18 Neck/Chest CT showing scattered atelectasis in the lingula, right middle and bilateral lower lobes. Additional mosaic attenuation most likely additional subsegmental atelectasis with scattered air trapping related to either small airway disease or bronchiolitis. Pneumonia or pulmonary edema considered less likely. As above. Continue IV abx (3) Sinusitis: Code(s): J32.9 - Chronic sinusitis, unspecified Status: Acute Assessment and Plan: -08/[address] shows palatine tonsils have decreased somewhat in size but remain obscured by metal artifact and worsening paranasal sinus disease with nasopharyngeal fluid and mucosal enhancement/edema. New, small retropharyngeal effusion noted. -08/18 Chest/Neck CT showing no gas within the nasopharynx, oropharynx, pharynx or proximal trachea cephalad to the bulb of the endotracheal tube which appears largely due to fluid/mucus filling the airway. This limits assessment for any thickening of the parapharyngeal soft tissues although there is no evident peripheral expansion of the parapharyngeal soft tissues. As above. Continue IV abx (4) Dementia: Code(s): F03.90 - Unspecified dementia, unspecified severity, without behavioral disturbance, psychotic disturbance, mood disturbance, and anxiety Status: Acute Assessment and Plan: Sedated -Continue Aricept. -Hold Namenda (can't be given through NG) (5) Hypertension: Code(s): I10 - Essential (primary) hypertension Status: Acute Assessment and Plan: Patient's blood pressure was reviewed on 08/21 Blood pressure well controlled Continue Atenolol and Norvasc Follow (6) Electrolyte abnormality: Code(s): E87.8 - Other disorders of electrolyte and fluid balance, not elsewhere classified Status: Acute Assessment and Plan: Potassium normal now Follow (7) Atrial fibrillation: Code(s): I48.91 - Unspecified atrial fibrillation Status: Acute Assessment and Plan: Has a hx of AFib. -Currently in sinus rhythm -Not on anticoagulation as an outpatient -Continue aspirin -monitor on tele (8) Dilated gallbladder: Code(s): K82.8 - Other specified diseases of gallbladder Status: Acute Assessment and Plan: 08/18 CT chest/neck showing dilated gallbladder with suggestion of either mild wall thickening or minimal pericholecystic ascites. This could be due to either acute cholecystitis or artifact of fasting state. Consider further evaluation with either right upper quadrant ultrasound or HIDA scan. -RUQ US showing dilated GB but no evidence of acute cholecystitis. -HIDA showing no acute cholec
[2022-08-21] MEDS: DONEPEZIL HCL 10 MG TABLET FEED TUBE (20:46)
[2022-08-22] VITALS (29 sets, daily range): BP systolic 133–146; BP diastolic 61–77; PULSE 69–93; RESP 15–21; TEMP 36.7–37.4; O2SAT 94–98
[2022-08-22 00:07] LABS: Glucose Point of Care 143 mg/dl (65-105)
[2022-08-22] MEDS: ALBUTEROL SULFATE NEB 2.5 MG/3 ML INH INHALATION ×4 (02:00→20:20)
[2022-08-22] MEDS: IPRATROPIUM BR 0.02% INH SOLN 0.5 MG/2.5 ML VIAL INHALATION ×4 (02:00→20:20)
[2022-08-22] MEDS: METOCLOPRAMIDE HCL 10 MG/10 ML SOLN UDC FEED TUBE (02:06)
[2022-08-22] MEDS: PIPERACILLIN/TAZOBACTAM SOD 4.5 GM in SODIUM CHLORIDE 0.9% IV 100 ML 200 ML IVPB ×4 (03:21→23:17)
[2022-08-22] MEDS: dexmedeTOMIDine 400 MCG/100 ML 400 MCG/100 ML BAG 11.7 MCG IV CONT ×2 (03:55→13:59)
[2022-08-22] MEDS: CENTRAL LINE FLUSH 10 ML IV PUSH ×3 (03:55→23:17)
[2022-08-22 04:36] LABS: Hematocrit 34.7 % (37.0-47.0); Hemoglobin 11.6 g/dL (12.0-15.0); Mean Corpuscular HGB Conc 33.4 g/dl (32-36); Mean Corpuscular Hemoglobin 31.1 pg (26-34); Platelet Count Result 233 k/mm3 (150-375); Red Blood Count 3.73 M/mm3 (4.2-5.4); White Blood Count 10.3 K/mm3 (4.5-10.0)
[2022-08-22 04:55] LABS: Alanine Aminotransferase 83 U/L (6-35); Albumin Level 2.9 g/dL (3.5-5.1); Alkaline Phosphatase 63 U/L (38-126); Anion Gap 4 mmol/L (8-16); Aspartate Amino Transferase 50 U/L (14-36); Bilirubin,Total 0.3 mg/dL (0.2-1.3); Blood Urea Nitrogen 29 mg/dL (7-17); Calcium 8.1 mg/dL (8.4-10.2); Carbon Dioxide 30 mmol/L (22-30); Chloride 103 mmol/L (98-107); Estimated Glomerular Filt Rate > 60; Glucose 178 mg/dL (65-110); Magnesium 2.1 mg/dL (1.6-2.3); Phosphorus 2.8 mg/dL (2.5-4.5); Potassium 3.9 mmol/L (3.4-5.0); Sodium 137 mmol/L (137-145)
[2022-08-22 05:10] LABS: Band Neutrophils Percent 2 % (0-6); Large Platelets Present; Lymphocytes Absolute Manual 0.82 K/mm3 (1.1-4.5); Metamyelocytes Percent 1 %; Neutrophils Absolute Manual 9.37 K/mm3 (1.7-7.2); Neutrophils Percent Manual 89 % (46-73); Platelet Estimate Adequate (Adequate); Total Cells Counted 100
[2022-08-22 05:11] LABS: Anisocytosis 1+ (NORMAL); Schistocytes None Seen (NORMAL)
[2022-08-22 05:48] LABS: Alveolar/Arterial O2 Gradient 56.4 mmHg; Base Excess ABG 6.2 mEq/l (+/-2.0); Carboxyhemoglobin 0.3 % THb (0-2.0); Fractional Inspired Oxygen 30 %; HCO3 ABG 30.2 mEq/l (22.0-26.0); Methemoglobin ABG 0.2 %THb (0-1.5); Oxygen Content ABG 17.6 %vol (16.0-22.0); Oxygen Saturation ABG 98.3 % (95.0-100.0); Oxyhemoglobin 96.8 % THb (90.0-100.0); PCO2 ABG 41.2 mmHg (35.0-45.0); PO2 ABG 109.1 mmHg (80.0-100.0); PO2 FiO2 Ratio Arterial Blood 3.64 %; Reduced Hemoglobin 2.7 %THb (0-5.0); Total Hemoglobin 12.8 g/dL (12.0-18.0); pH ABG 7.483 (7.350-7.450)
[2022-08-22 05:49] LABS: Device VENTILATOR; Modified Allen's Test Pass; Site Drawn RIGHT RADIAL
[2022-08-22 05:50] LABS: Arterial Blood Gas Ventilator rate 15 /MIN
[2022-08-22 05:51] LABS: Arterial Blood Gas PEEP 5 cmH2O; Arterial Blood Gas Tidal Volume 300 ml; Arterial Blood Gas Vent Mode CMV
[2022-08-22] MEDS: methylPREDNISolone SOD SUCC 125 MG VIAL 80 MG IV PUSH ×2 (08:05→20:47)
[2022-08-22] MEDS: FUROSEMIDE INJ 40 MG/4 ML VIAL 20 MG IV PUSH (08:06)
[2022-08-22] MEDS: atenoloL 25 MG TABLET FEED TUBE (08:08)
[2022-08-22] MEDS: amLODIPine BESYLATE 5 MG TABLET 10 MG PO (08:08)
[2022-08-22] MEDS: METOCLOPRAMIDE HCL INJ 10 MG/2 ML VIAL IV PUSH ×3 (08:09→18:03)
[2022-08-22] MEDS: PANTOPRAZOLE SODIUM IV 40 MG VIAL IV PUSH (08:09)
[2022-08-22] MEDS: MINERAL OIL/WHITE PETROLATUM OINTMENT 1 APPLIC EACH EYE ×2 (08:09→23:16)
[2022-08-22] MEDS: ASPIRIN 325 MG TABLET FEED TUBE (08:09)
[2022-08-22] MEDS: ENOXAPARIN 40 MG/0.4 ML SYRINGE SUB-Q (08:09)
--- NOTE | 2022-08-22 12:03 | WPDINTPN ---
Progress Note: A&P Assessment and Plan (1) Acute respiratory failure with hypoxia: Code(s): J96.01 - Acute respiratory failure with hypoxia Status: Acute Assessment and Plan: Acute Respiratory failure secondary to pneumonia, pharyngitis, sinusitis, airway edema and swelling Continue full mechanical ventilation support to prevent hypoxemia/hypercarbia and end organ damage. Patient was evaluated by ENT. No drainable abscess on imaging Patient was treated with Decadron 08/17 I assessed patient for a weaning trial but on deflation of ET tube cuff patient had no leak around it suggestive of airway edema Patient was resumed on steroids 08/18 patient had minimal leak around ETT on deflation of cuff with no significant drop in tidal volumes on the ventilator CT soft tissue neck IMPRESSION: 1. No gas within the nasopharynx, oropharynx, pharynx or proximal trachea cephalad to the bulb of the endotracheal tube which appears largely due to fluid/mucus filling the airway. This limits assessment for any thickening of the parapharyngeal soft tissues although there is no evident peripheral expansion of the parapharyngeal soft tissues. 2. Scattered atelectasis in the lingula, right middle and bilateral lower lobes. Additional mosaic attenuation most likely additional subsegmental atelectasis with scattered air trapping related to either small airway disease or bronchiolitis. Pneumonia or pulmonary edema considered less likely. 08/18: Discussed with ENT. Recommend continued treatment with steroids antibiotics at this time 08/20, 08/21 or 08/22: No cuff leak again on exam. I deflated the cuff and there was no significant change in the tidal volume on the ventilator. Did not hear any leak around the cuff again today, I did it in the presence of for respiratory therapist Continue Zosyn. Vancomycin and doxycycline have been discontinued Continue Solu-Medrol per ENT Chest x-ray this morning:Slightly worsened airspace opacities at left lung base, consistent with atelectasis versus pneumonia Low tidal volume ventilation strategy to prevent volutrauma Continue Bronchodilators Blood cultures, sputum cultures negative as of now -Urine pneumococcal antigen is negative, -urine Legionella antigen is pending -mycoplasma IgM levels are pending Influenza A and B, RSV and COVID were negative on admission 08/15: Lower extremity Dopplers were negative for DVT 08/15: Soft tissue neck CT IMPRESSION: 1. The palatine tonsils have decreased somewhat in size but remain obscured by metal artifact. 2. Worsening paranasal sinus disease, with nasopharyngeal fluid and mucosal enhancement/edema. New, small retropharyngeal effusion. 3. Slightly improved pulmonary opacities. CTA IMPRESSION: 1. No large central pulmonary embolism. Evaluation of peripheral pulmonary arteries limited by motion artifact. 2: Patchy groundglass opacities of the mid and lower lungs, compatible with pneumonia. (2) Pneumonia: Qualifiers: Laterality: bilateral Lung location: lower lobe of lung Pneumonia type: due to unspecified organism Qualified Code(s): J18.9 - Pneumonia, unspecified organism Code(s): J18.9 - Pneumonia, unspecified organism Status: Acute Assessment and Plan: See above (3) Sinusitis: Code(s): J32.9 - Chronic sinusitis, unspecified Status: Acute Assessment and Plan: See above (4) Dementia: Code(s): F03.90 - Unspecified dementia, unspecified severity, without behavioral disturbance, psychotic disturbance, mood disturbance, and anxiety Status: Acute Assessment and Plan: Continue Aricept. Hold Namenda as a it is a extended release tablet and cannot be given through NG (5) Hypertension: Code(s): I10 - Essential (primary) hypertension Status: Acute Assessment and Plan: Continue amlodipine, atenolol -blood pressures are stable with these medications (6) Electroly
--- NOTE | 2022-08-22 12:07 | PCFNICU ---
ICU Rounding Note: Pt current nutrition is Vital AF 1.2 at 45 ml/hr. Last recorded weight is 65.6 kg. Bowel Motility:+BM reported 08/21 Labs Reviewed:Glu 178, BUN 29, Cr 0.6,Alb 2.9 Meds Noted:Reglan, Fentanyl, Precedex, Lovenox, Protonix, Skin: WNL Additional Notes: Patient remains on mechanical vent and tube feedings of Vital AF 1.2 at 45 ml/hr and tolerating. Flush 30 ml q 4 hours. Agree with diet orders. Will monitor daily in ICU rounds and reassess every Saturday and Saturday.
--- NOTE | 2022-08-22 12:52 | P.PNIM_ITS ---
Progress Note: A&P Assessment and Plan (1) Acute respiratory failure with hypoxia: Code(s): J96.01 - Acute respiratory failure with hypoxia Status: Acute Assessment and Plan: Patient presents with SOB and found to have Acute Respiratory failure secondary to pneumonia, pharyngitis, sinusitis and airway edema. Intubated for airway protection. -Patient was evaluated by ENT.? No drainable abscess on imaging -Flu, RSV and COVID are negative -Lower extremity Dopplers were negative for DVT -Steroids and IV abx started. -BCx NGTD -Sputum Cx and MRSA nasal swab negative -Mycoplasma IgM and Urine Legionella negative;pneumococcal antigen pending -Still no air leak with taking the cuff down Continue full mechanical ventilation Continue IV Solu-Medrol Continue Zosyn; doxycycline stopped 08/21 Continue Bronchodilators (2) Pneumonia: Qualifiers: Laterality: bilateral Lung location: lower lobe of lung Pneumonia type: due to unspecified organism Qualified Code(s): J18.9 - Pneumonia, unspecified organism Code(s): J18.9 - Pneumonia, unspecified organism Status: Acute Assessment and Plan: -08/[address] shows no large central PE but groundglass opacities of the mid and lower lungs, compatible with pneumonia. -08/18 Neck/Chest CT showing scattered atelectasis in the lingula, right middle and bilateral lower lobes. Additional mosaic attenuation most likely additional subsegmental atelectasis with scattered air trapping related to either small airway disease or bronchiolitis. Pneumonia or pulmonary edema considered less likely. As above. Continue IV abx (3) Sinusitis: Code(s): J32.9 - Chronic sinusitis, unspecified Status: Acute Assessment and Plan: -08/[address] shows palatine tonsils have decreased somewhat in size but remain obscured by metal artifact and worsening paranasal sinus disease with nasopharyngeal fluid and mucosal enhancement/edema. New, small retropharyngeal effusion noted. -08/18 Chest/Neck CT showing no gas within the nasopharynx, oropharynx, pharynx or proximal trachea cephalad to the bulb of the endotracheal tube which appears largely due to fluid/mucus filling the airway. This limits assessment for any thickening of the parapharyngeal soft tissues although there is no evident peripheral expansion of the parapharyngeal soft tissues. As above. Continue IV abx (4) Dementia: Code(s): F03.90 - Unspecified dementia, unspecified severity, without behavioral disturbance, psychotic disturbance, mood disturbance, and anxiety Status: Acute Assessment and Plan: Sedated -Continue Aricept. -Hold Namenda (can't be given through NG) (5) Hypertension: Code(s): I10 - Essential (primary) hypertension Status: Acute Assessment and Plan: Patient's blood pressure was reviewed on 08/22 Blood pressure well controlled Continue Atenolol and Norvasc Follow (6) Electrolyte abnormality: Code(s): E87.8 - Other disorders of electrolyte and fluid balance, not elsewhere classified Status: Acute Assessment and Plan: Potassium normal now Follow (7) Atrial fibrillation: Code(s): I48.91 - Unspecified atrial fibrillation Status: Acute Assessment and Plan: Has a hx of AFib. -Currently in sinus rhythm -Not on anticoagulation as an outpatient -Continue aspirin -monitor on tele (8) Dilated gallbladder: Code(s): K82.8 - Other specified diseases of gallbladder Statu
[2022-08-22] MEDS: DONEPEZIL HCL 10 MG TABLET FEED TUBE (20:47)
[2022-08-22] MEDS: dexmedeTOMIDine 400 MCG/100 ML 400 MCG/100 ML BAG 14.63 MCG IV CONT (20:47)
[2022-08-23] VITALS (39 sets, daily range): BP systolic 125–153; BP diastolic 62–79; PULSE 61–107; RESP 12–30; TEMP 36.4–37.3; O2SAT 95–100
[2022-08-23] MEDS: METOCLOPRAMIDE HCL INJ 10 MG/2 ML VIAL IV PUSH ×2 (00:26→05:59)
[2022-08-23] MEDS: dexmedeTOMIDine 400 MCG/100 ML 400 MCG/100 ML BAG 16.09 MCG IV CONT ×3 (02:13→20:52)
[2022-08-23] MEDS: IPRATROPIUM BR 0.02% INH SOLN 0.5 MG/2.5 ML VIAL INHALATION ×4 (03:15→20:15)
[2022-08-23] MEDS: ALBUTEROL SULFATE NEB 2.5 MG/3 ML INH INHALATION ×4 (03:15→20:15)
[2022-08-23] MEDS: PIPERACILLIN/TAZOBACTAM SOD 4.5 GM in SODIUM CHLORIDE 0.9% IV 100 ML 200 ML IVPB ×3 (04:42→20:54)
[2022-08-23 05:03] LABS: Basophils Percent Auto 0.2 % (0.2-1.2); Hematocrit 35.5 % (37.0-47.0); Hemoglobin 11.9 g/dL (12.0-15.0); Immature Granulocyte Percent A 4.4 % (0-0.5); Lymphocytes Percent Auto 5.3 % (18.3-44.2); Mean Corpuscular HGB Conc 33.5 g/dl (32-36); Mean Corpuscular Hemoglobin 30.4 pg (26-34); Mean Corpuscular Volume 90.6 fl (80-100); Mean Platelet Volume 10.1 fl (7.4-10.4); Monocytes Absolute Auto 0.3 K/mm3 (0.1-0.6); Monocytes Percent Auto 2.8 % (2.6-8.5); Neutrophils Absolute Auto 9.8 K/mm3 (1.3-6.7); Neutrophils Percent Auto 87.3 % (45.5-73.1); Platelet Count Result 240 k/mm3 (150-375); Red Blood Count 3.92 M/mm3 (4.2-5.4); White Blood Count 11.2 K/mm3 (4.5-10.0)
[2022-08-23 05:29] LABS: Alanine Aminotransferase 80 U/L (6-35); Albumin Level 3.2 g/dL (3.5-5.1); Alkaline Phosphatase 64 U/L (38-126); Anion Gap 4 mmol/L (8-16); Aspartate Amino Transferase 41 U/L (14-36); Bilirubin,Total 0.5 mg/dL (0.2-1.3); Blood Urea Nitrogen 31 mg/dL (7-17); Calcium 8.4 mg/dL (8.4-10.2); Carbon Dioxide 32 mmol/L (22-30); Chloride 102 mmol/L (98-107); Estimated Glomerular Filt Rate > 60; Glucose 156 mg/dL (65-110); Magnesium 2.1 mg/dL (1.6-2.3); Phosphorus 3.3 mg/dL (2.5-4.5); Potassium 3.9 mmol/L (3.4-5.0); Sodium 138 mmol/L (137-145)
[2022-08-23 05:41] LABS: Triglycerides 280 mg/dL (<150)
[2022-08-23] MEDS: CENTRAL LINE FLUSH 10 ML IV PUSH ×3 (05:59→20:58)
[2022-08-23] MEDS: atenoloL 25 MG TABLET FEED TUBE (08:12)
[2022-08-23] MEDS: amLODIPine BESYLATE 5 MG TABLET 10 MG PO (08:12)
[2022-08-23] MEDS: ENOXAPARIN 40 MG/0.4 ML SYRINGE SUB-Q (08:12)
[2022-08-23] MEDS: ASPIRIN 325 MG TABLET FEED TUBE (08:12)
[2022-08-23] MEDS: MINERAL OIL/WHITE PETROLATUM OINTMENT 1 APPLIC EACH EYE ×2 (08:12→20:56)
[2022-08-23] MEDS: PANTOPRAZOLE SODIUM IV 40 MG VIAL IV PUSH (08:12)
[2022-08-23] MEDS: methylPREDNISolone SOD SUCC 125 MG VIAL 80 MG IV PUSH ×2 (08:12→20:53)
--- NOTE | 2022-08-23 12:01 | PCFNICU ---
ICU Rounding Note: Pt current nutrition is Vital AF 1.2 at 45 ml/hr. Last recorded weight is 65.8 kg. Bowel Motility: FMS Labs Reviewed:TG 280, BUN 31, Cr 0.5,Glu 156 Meds Noted:Precedex, Lovenox, Protonix Skin: WNL Additional Notes: Patient remains on mechanical vent and tube feedings of Vital AF 1.2 at 45 ml/hr and tolerating. CT scan today. Following daily in ICU rounds. Will monitor daily in ICU rounds and reassess every Saturday and Saturday.
--- NOTE | 2022-08-23 14:02 | WPDINTPN ---
Progress Note: A&P Assessment and Plan (1) Acute respiratory failure with hypoxia: Code(s): J96.01 - Acute respiratory failure with hypoxia Status: Acute Assessment and Plan: Acute Respiratory failure secondary to pneumonia, pharyngitis, sinusitis, airway edema and swelling -intubated on 08/15 Continue full mechanical ventilation support to prevent hypoxemia/hypercarbia and end organ damage. Patient was evaluated by ENT. No drainable abscess on imaging 08/17 I assessed patient for a weaning trial but on deflation of ET tube cuff patient had no leak around it suggestive of airway edema Patient was resumed on steroids 08/18 patient had minimal leak around ETT on deflation of cuff with no significant drop in tidal volumes on the ventilator 08/20, 08/21 or 08/22, 08/23: No cuff leak again on exam. I deflated the cuff and there was no significant change in the tidal volume on the ventilator. Did not hear any leak around the cuff again today, I did it in the presence of for respiratory therapist Continue Zosyn. Vancomycin and doxycycline have been discontinued Continue Solu-Medrol per ENT Chest x-ray this morning:Mild atelectasis in the lower lung zones Low tidal volume ventilation strategy to prevent volutrauma Continue Bronchodilators Blood cultures, sputum cultures negative as of now -Urine pneumococcal antigen is negative, -urine Legionella antigen is pending -mycoplasma IgM levels are pending Influenza A and B, RSV and COVID were negative on admission 08/15: Lower extremity Dopplers were negative for DVT 08/23:Discussed with ENT, continue steroids and antibiotics until she is ready for extubation -placed patient on ASV, will wean off per fentanyl infusion, place patient on pressure support ventilation evaluate for extubation. 08/23/2022: CT soft tissue neck Wall thickening of the pharynx, consistent with inflammation. No abscess. CT soft tissue neck IMPRESSION: 1. No gas within the nasopharynx, oropharynx, pharynx or proximal trachea cephalad to the bulb of the endotracheal tube which appears largely due to fluid/mucus filling the airway. This limits assessment for any thickening of the parapharyngeal soft tissues although there is no evident peripheral expansion of the parapharyngeal soft tissues. 2. Scattered atelectasis in the lingula, right middle and bilateral lower lobes. Additional mosaic attenuation most likely additional subsegmental atelectasis with scattered air trapping related to either small airway disease or bronchiolitis. Pneumonia or pulmonary edema considered less likely. 08/15: Soft tissue neck CT IMPRESSION: 1. The palatine tonsils have decreased somewhat in size but remain obscured by metal artifact. 2. Worsening paranasal sinus disease, with nasopharyngeal fluid and mucosal enhancement/edema. New, small retropharyngeal effusion. 3. Slightly improved pulmonary opacities. 08/18: Discussed with ENT. Recommend continued treatment with steroids antibiotics at this time 08/15Chest CTA IMPRESSION: 1. No large central pulmonary embolism. Evaluation of peripheral pulmonary arteries limited by motion artifact. 2: Patchy groundglass opacities of the mid and lower lungs, compatible with pneumonia. (2) Pneumonia: Qualifiers: Laterality: bilateral Lung location: lower lobe of lung Pneumonia type: due to unspecified organism Qualified Code(s): J18.9 - Pneumonia, unspecified organism Code(s): J18.9 - Pneumonia, unspecified organism Status: Acute Assessment and Plan: See above (3) Sinusitis: Code(s): J32.9 - Chronic sinusitis, unspecified Status: Acute Assessment and Plan: See above (4) Dementia: Code(s): F03.90 - Unspecified dementia, unspecified severity, without behavioral disturbance, psychotic disturbance, mood disturbance, and anxiety Status: Acute Assessment and Plan: Continue Aricept. Hold Namenda as a it is a ex
[2022-08-23] MEDS: DONEPEZIL HCL 10 MG TABLET FEED TUBE (21:15)
[2022-08-24] VITALS (34 sets, daily range): BP systolic 127–151; BP diastolic 52–76; PULSE 63–110; RESP 14–28; TEMP 36.6–37.7; O2SAT 91–100
[2022-08-24] MEDS: dexmedeTOMIDine 400 MCG/100 ML 400 MCG/100 ML BAG 17.55 MCG IV CONT ×2 (02:47→08:06)
[2022-08-24] MEDS: IPRATROPIUM BR 0.02% INH SOLN 0.5 MG/2.5 ML VIAL INHALATION ×4 (02:55→21:09)
[2022-08-24] MEDS: ALBUTEROL SULFATE NEB 2.5 MG/3 ML INH INHALATION ×4 (02:55→21:09)
[2022-08-24] MEDS: PIPERACILLIN/TAZOBACTAM SOD 4.5 GM in SODIUM CHLORIDE 0.9% IV 100 ML 200 ML IVPB ×4 (05:03→20:52)
[2022-08-24] MEDS: CENTRAL LINE FLUSH 10 ML IV PUSH ×3 (05:04→20:53)
[2022-08-24 05:16] LABS: Basophils Percent Auto 0.2 % (0.2-1.2); Hematocrit 33.4 % (37.0-47.0); Hemoglobin 11.4 g/dL (12.0-15.0); Immature Granulocyte Absolute 0.34 K/mm3 (0.00-0.031); Immature Granulocyte Percent A 3.1 % (0-0.5); Lymphocytes Absolute Auto 0.58 K/mm3 (0.9-3.2); Lymphocytes Percent Auto 5.2 % (18.3-44.2); Mean Corpuscular HGB Conc 34.1 g/dl (32-36); Mean Corpuscular Hemoglobin 31.1 pg (26-34); Mean Corpuscular Volume 91.3 fl (80-100); Monocytes Absolute Auto 0.4 K/mm3 (0.1-0.6); Monocytes Percent Auto 3.6 % (2.6-8.5); Neutrophils Absolute Auto 9.7 K/mm3 (1.3-6.7); Neutrophils Percent Auto 87.9 % (45.5-73.1); Platelet Count Result 206 k/mm3 (150-375); Red Blood Count 3.66 M/mm3 (4.2-5.4); White Blood Count 11.1 K/mm3 (4.5-10.0)
[2022-08-24 05:28] LABS: Alanine Aminotransferase 64 U/L (6-35); Albumin Level 2.8 g/dL (3.5-5.1); Alkaline Phosphatase 53 U/L (38-126); Anion Gap 3 mmol/L (8-16); Aspartate Amino Transferase 35 U/L (14-36); Bilirubin,Total 0.4 mg/dL (0.2-1.3); Blood Urea Nitrogen 28 mg/dL (7-17); Calcium 8.1 mg/dL (8.4-10.2); Carbon Dioxide 30 mmol/L (22-30); Chloride 101 mmol/L (98-107); Estimated Glomerular Filt Rate > 60; Glucose 156 mg/dL (65-110); Phosphorus 2.8 mg/dL (2.5-4.5); Potassium 3.5 mmol/L (3.4-5.0); Sodium 134 mmol/L (137-145)
[2022-08-24 05:54] LABS: Alveolar/Arterial O2 Gradient 81.7 mmHg; Base Excess ABG 2.4 mEq/l (+/-2.0); Carboxyhemoglobin 0.3 % THb (0-2.0); Fractional Inspired Oxygen 30 %; Methemoglobin ABG 0.4 %THb (0-1.5); Oxygen Content ABG 25.2 %vol (16.0-22.0); Oxygen Saturation ABG 97.2 % (95.0-100.0); Oxyhemoglobin 95.8 % THb (90.0-100.0); PCO2 ABG 37.4 mmHg (35.0-45.0); PO2 ABG 88.3 mmHg (80.0-100.0); PO2 FiO2 Ratio Arterial Blood 2.94 %; Reduced Hemoglobin 3.5 %THb (0-5.0); Total Hemoglobin 18.7 g/dL (12.0-18.0)
[2022-08-24 06:02] LABS: Arterial Blood Gas PEEP 5 cmH2O; Arterial Blood Gas Vent Mode ASV; Device VENTILATOR; Modified Allen's Test Pass; Site Drawn LEFT RADIAL
[2022-08-24] MEDS: PANTOPRAZOLE SODIUM IV 40 MG VIAL IV PUSH (08:07)
[2022-08-24] MEDS: FUROSEMIDE INJ 40 MG/4 ML VIAL 20 MG IV PUSH (08:07)
[2022-08-24] MEDS: amLODIPine BESYLATE 5 MG TABLET 10 MG PO (08:07)
[2022-08-24] MEDS: MINERAL OIL/WHITE PETROLATUM OINTMENT 1 APPLIC EACH EYE (08:07)
[2022-08-24] MEDS: ENOXAPARIN 40 MG/0.4 ML SYRINGE SUB-Q (08:07)
[2022-08-24] MEDS: ASPIRIN 325 MG TABLET FEED TUBE (08:07)
[2022-08-24] MEDS: atenoloL 25 MG TABLET FEED TUBE (08:07)
[2022-08-24] MEDS: methylPREDNISolone SOD SUCC 125 MG VIAL 80 MG IV PUSH ×2 (08:18→20:51)
[2022-08-24 09:34] LABS: Alveolar/Arterial O2 Gradient 74.8 mmHg; Base Excess ABG 6.5 mEq/l (+/-2.0); Fractional Inspired Oxygen 30 %; HCO3 ABG 29.3 mEq/l (22.0-26.0); Oxygen Content ABG 17.9 %vol (16.0-22.0); Oxyhemoglobin 96.8 % THb (90.0-100.0); PCO2 ABG 35.7 mmHg (35.0-45.0); PO2 ABG 97.2 mmHg (80.0-100.0); PO2 FiO2 Ratio Arterial Blood 3.24 %; Total Hemoglobin 13.1 g/dL (12.0-18.0)
[2022-08-24 09:36] LABS: Device VENTILATOR; Modified Allen's Test Pass; Site Drawn LEFT RADIAL; pH ABG 7.532 (7.350-7.450)
[2022-08-24 09:37] LABS: Arterial Blood Gas PEEP 5 cmH2O; Arterial Blood Gas Pressure Support 8 cmH2O; Arterial Blood Gas Vent Mode SPONTANEOUS
--- NOTE | 2022-08-24 13:34 | WPDINTPN ---
Progress Note: A&P Assessment and Plan (1) Acute respiratory failure with hypoxia: Code(s): J96.01 - Acute respiratory failure with hypoxia Status: Acute Assessment and Plan: Acute Respiratory failure secondary to pneumonia, pharyngitis, sinusitis, airway edema and swelling -intubated on 08/15 Continue full mechanical ventilation support to prevent hypoxemia/hypercarbia and end organ damage. Patient was evaluated by ENT. No drainable abscess on imaging 08/20, 08/21 or 08/22, 08/23: No cuff leak again on exam. Continue Zosyn. For a total of 10 days Continue Solu-Medrol per ENT Chest x-ray this morning:Mild atelectasis in the lower lung zones 08/24/2022: Patient did have some a cuff leak and a good cough -placed her on SBT, successfully extubated after her ABGs look good. Continue Bronchodilators Blood cultures, sputum cultures negative as of now -Urine pneumococcal antigen is negative, -urine Legionella antigen is pending -mycoplasma IgM levels are pending Influenza A and B, RSV and COVID were negative on admission 08/15: Lower extremity Dopplers were negative for DVT 08/23/2022: CT soft tissue neck Wall thickening of the pharynx, consistent with inflammation. No abscess. CT soft tissue neck IMPRESSION: 1. No gas within the nasopharynx, oropharynx, pharynx or proximal trachea cephalad to the bulb of the endotracheal tube which appears largely due to fluid/mucus filling the airway. This limits assessment for any thickening of the parapharyngeal soft tissues although there is no evident peripheral expansion of the parapharyngeal soft tissues. 2. Scattered atelectasis in the lingula, right middle and bilateral lower lobes. Additional mosaic attenuation most likely additional subsegmental atelectasis with scattered air trapping related to either small airway disease or bronchiolitis. Pneumonia or pulmonary edema considered less likely. 08/15: Soft tissue neck CT IMPRESSION: 1. The palatine tonsils have decreased somewhat in size but remain obscured by metal artifact. 2. Worsening paranasal sinus disease, with nasopharyngeal fluid and mucosal enhancement/edema. New, small retropharyngeal effusion. 3. Slightly improved pulmonary opacities. 08/15Chest CTA IMPRESSION: 1. No large central pulmonary embolism. Evaluation of peripheral pulmonary arteries limited by motion artifact. 2: Patchy groundglass opacities of the mid and lower lungs, compatible with pneumonia. (2) Pneumonia: Qualifiers: Laterality: bilateral Lung location: lower lobe of lung Pneumonia type: due to unspecified organism Qualified Code(s): J18.9 - Pneumonia, unspecified organism Code(s): J18.9 - Pneumonia, unspecified organism Status: Acute Assessment and Plan: See above (3) Sinusitis: Code(s): J32.9 - Chronic sinusitis, unspecified Status: Acute Assessment and Plan: See above (4) Dementia: Code(s): F03.90 - Unspecified dementia, unspecified severity, without behavioral disturbance, psychotic disturbance, mood disturbance, and anxiety Status: Acute Assessment and Plan: Continue Aricept. Hold Namenda as a it is a extended release tablet and cannot be given through NG -will start Namenda once she passes her swallow test (5) Hypertension: Code(s): I10 - Essential (primary) hypertension Status: Acute Assessment and Plan: Continue amlodipine, atenolol -blood pressures are stable with these medications (6) Electrolyte abnormality: Code(s): E87.8 - Other disorders of electrolyte and fluid balance, not elsewhere classified Status: Acute Assessment and Plan: Potassium improved after replacement (7) Atrial fibrillation: Code(s): I48.91 - Unspecified atrial fibrillation Status: Acute Assessment and Plan: Currently in sinus rhythm Not on anticoagulation as an outpatient Continue aspirin (8) Dilated gallbladder
--- NOTE | 2022-08-24 14:47 | PCSTNOTE ---
Please refer to the Bedside Swallow Evaluation in the EMR. Please note, silent aspiration cannot be ruled out at bedside.
[2022-08-24] MEDS: DONEPEZIL HCL 10 MG TABLET FEED TUBE (20:46)
[2022-08-25] VITALS (15 sets, daily range): BP systolic 130–165; BP diastolic 63–77; PULSE 71–108; RESP 16–28; TEMP 36.7–37.7; O2SAT 90–100
[2022-08-25] MEDS: IPRATROPIUM BR 0.02% INH SOLN 0.5 MG/2.5 ML VIAL INHALATION ×3 (02:55→21:01)
[2022-08-25] MEDS: ALBUTEROL SULFATE NEB 2.5 MG/3 ML INH INHALATION ×3 (02:55→21:01)
[2022-08-25] MEDS: PIPERACILLIN/TAZOBACTAM SOD 4.5 GM in SODIUM CHLORIDE 0.9% IV 100 ML 200 ML IVPB ×3 (04:29→15:41)
[2022-08-25] MEDS: CENTRAL LINE FLUSH 10 ML IV PUSH ×3 (04:30→19:48)
[2022-08-25 04:33] LABS: Basophils Percent Auto 0.1 % (0.2-1.2); Hematocrit 37.4 % (37.0-47.0); Hemoglobin 12.4 g/dL (12.0-15.0); Immature Granulocyte Absolute 0.34 K/mm3 (0.00-0.031); Immature Granulocyte Percent A 1.9 % (0-0.5); Lymphocytes Absolute Auto 0.65 K/mm3 (0.9-3.2); Lymphocytes Percent Auto 3.6 % (18.3-44.2); Mean Corpuscular HGB Conc 33.2 g/dl (32-36); Mean Corpuscular Hemoglobin 30.6 pg (26-34); Mean Corpuscular Volume 92.3 fl (80-100); Mean Platelet Volume 9.7 fl (7.4-10.4); Monocytes Absolute Auto 0.7 K/mm3 (0.1-0.6); Monocytes Percent Auto 3.9 % (2.6-8.5); Neutrophils Absolute Auto 16.2 K/mm3 (1.3-6.7); Neutrophils Percent Auto 90.5 % (45.5-73.1); Platelet Count Result 277 k/mm3 (150-375); Red Blood Count 4.05 M/mm3 (4.2-5.4); Red Cell Distribution Width 12.5 % (11.5-14.5); White Blood Count 17.9 K/mm3 (4.5-10.0)
[2022-08-25 04:51] LABS: Alanine Aminotransferase 83 U/L (6-35); Albumin Level 3.4 g/dL (3.5-5.1); Alkaline Phosphatase 63 U/L (38-126); Anion Gap 8 mmol/L (8-16); Aspartate Amino Transferase 46 U/L (14-36); Bilirubin,Total 0.9 mg/dL (0.2-1.3); Blood Urea Nitrogen 30 mg/dL (7-17); Calcium 8.7 mg/dL (8.4-10.2); Carbon Dioxide 27 mmol/L (22-30); Chloride 106 mmol/L (98-107); Estimated Glomerular Filt Rate > 60; Glucose 164 mg/dL (65-110); Sodium 141 mmol/L (137-145); Triglycerides 262 mg/dL (<150)
[2022-08-25] MEDS: ENOXAPARIN 40 MG/0.4 ML SYRINGE SUB-Q (08:27)
[2022-08-25] MEDS: PANTOPRAZOLE SODIUM IV 40 MG VIAL IV PUSH (08:27)
[2022-08-25] MEDS: atenoloL 25 MG TABLET FEED TUBE (08:28)
[2022-08-25] MEDS: amLODIPine BESYLATE 5 MG TABLET 10 MG PO (08:28)
[2022-08-25] MEDS: ASPIRIN 325 MG TABLET FEED TUBE (08:28)
[2022-08-25] MEDS: methylPREDNISolone SOD SUCC 125 MG VIAL 80 MG IV PUSH (08:48)
[2022-08-25] MEDS: ACETAMINOPHEN ELIXIR 325 MG/10.15 ML UDC 650 MG PO (11:35)
--- NOTE | 2022-08-25 12:52 | WPDINTPN ---
Progress Note: A&P Assessment and Plan (1) Acute respiratory failure with hypoxia: Code(s): J96.01 - Acute respiratory failure with hypoxia Status: Acute Assessment and Plan: Acute Respiratory failure secondary to pneumonia, pharyngitis, sinusitis, airway edema and swelling -intubated on 08/15 -08/24: Extubated No stridor, on room air with good O2 sats -continue to monitor -weaning steroids to off -08/25: also last day of Zosyn 08/15: Lower extremity Dopplers were negative for DVT 08/23/2022: CT soft tissue neck Wall thickening of the pharynx, consistent with inflammation. No abscess. CT soft tissue neck IMPRESSION: 1. No gas within the nasopharynx, oropharynx, pharynx or proximal trachea cephalad to the bulb of the endotracheal tube which appears largely due to fluid/mucus filling the airway. This limits assessment for any thickening of the parapharyngeal soft tissues although there is no evident peripheral expansion of the parapharyngeal soft tissues. 2. Scattered atelectasis in the lingula, right middle and bilateral lower lobes. Additional mosaic attenuation most likely additional subsegmental atelectasis with scattered air trapping related to either small airway disease or bronchiolitis. Pneumonia or pulmonary edema considered less likely. 08/15: Soft tissue neck CT IMPRESSION: 1. The palatine tonsils have decreased somewhat in size but remain obscured by metal artifact. 2. Worsening paranasal sinus disease, with nasopharyngeal fluid and mucosal enhancement/edema. New, small retropharyngeal effusion. 3. Slightly improved pulmonary opacities. 08/15Ches CTA IMPRESSION: 1. No large central pulmonary embolism. Evaluation of peripheral pulmonary arteries limited by motion artifact. 2: Patchy groundglass opacities of the mid and lower lungs, compatible with pneumonia. (2) Pneumonia: Qualifiers: Laterality: bilateral Lung location: lower lobe of lung Pneumonia type: due to unspecified organism Qualified Code(s): J18.9 - Pneumonia, unspecified organism Code(s): J18.9 - Pneumonia, unspecified organism Status: Acute Assessment and Plan: See above (3) Sinusitis: Code(s): J32.9 - Chronic sinusitis, unspecified Status: Acute Assessment and Plan: See above (4) Dementia: Code(s): F03.90 - Unspecified dementia, unspecified severity, without behavioral disturbance, psychotic disturbance, mood disturbance, and anxiety Status: Acute Assessment and Plan: Continue Aricept. -will restart Namenda which is her home medication (5) Hypertension: Code(s): I10 - Essential (primary) hypertension Status: Acute Assessment and Plan: Continue amlodipine, atenolol -blood pressures are stable with these medications (6) Electrolyte abnormality: Code(s): E87.8 - Other disorders of electrolyte and fluid balance, not elsewhere classified Status: Acute Assessment and Plan: Replace potassium (7) Atrial fibrillation: Code(s): I48.91 - Unspecified atrial fibrillation Status: Acute Assessment and Plan: Currently in sinus rhythm Not on anticoagulation as an outpatient Continue aspirin (8) Dilated gallbladder: Code(s): K82.8 - Other specified diseases of gallbladder Status: Acute Assessment and Plan: Ultrasound - Dilated gallbladder, no stones, wall thickening, or pericholecystic fluid. Mildly dilated pancreatic duct, correlate with pancreatic labs and consider MRCP of the pancreas for further evaluation. Please also refer to the report on the concurrent hepatobiliary scan. 08/20: HIDA scan was negative, not reflective of acute cholecystitis Continue Zosyn (9) Dietary counseling and surveillance: Code(s): Z71.3 - Dietary counseling and surveillance Status: Acute Assessment and Plan: Tolerating tube feeds Reglan discontinued as she has increased bowel move
[2022-08-25] MEDS: KCL 40 MEQ/WATER 100 ML 100 ML 25 ML IVPB (15:42)
--- NOTE | 2022-08-25 16:11 | PM.IMPN ---
Progress Note: A&P Assessment and Plan (1) Acute respiratory failure with hypoxia: Code(s): J96.01 - Acute respiratory failure with hypoxia Status: Acute Assessment and Plan: Acute Respiratory failure secondary to pneumonia, pharyngitis, sinusitis, airway edema and swelling -intubated on 08/15 -08/24: Extubated No stridor, on room air with good O2 sats -continue to monitor -weaning steroids to off Treated with Zosyn Lower extremity Doppler negative for DVT 08/23/2022: CT soft tissue neck Wall thickening of the pharynx, consistent with inflammation. No abscess. CT soft tissue neck IMPRESSION: 1. No gas within the nasopharynx, oropharynx, pharynx or proximal trachea cephalad to the bulb of the endotracheal tube which appears largely due to fluid/mucus filling the airway. This limits assessment for any thickening of the parapharyngeal soft tissues although there is no evident peripheral expansion of the parapharyngeal soft tissues. 2. Scattered atelectasis in the lingula, right middle and bilateral lower lobes. Additional mosaic attenuation most likely additional subsegmental atelectasis with scattered air trapping related to either small airway disease or bronchiolitis. Pneumonia or pulmonary edema considered less likely. 08/15: Soft tissue neck CT IMPRESSION: 1. The palatine tonsils have decreased somewhat in size but remain obscured by metal artifact. 2. Worsening paranasal sinus disease, with nasopharyngeal fluid and mucosal enhancement/edema. New, small retropharyngeal effusion. 3. Slightly improved pulmonary opacities. 08/15Chest CTA IMPRESSION: 1. No large central pulmonary embolism. Evaluation of peripheral pulmonary arteries limited by motion artifact. 2: Patchy groundglass opacities of the mid and lower lungs, compatible with pneumonia. (2) Pneumonia: Qualifiers: Laterality: bilateral Lung location: lower lobe of lung Pneumonia type: due to unspecified organism Qualified Code(s): J18.9 - Pneumonia, unspecified organism Code(s): J18.9 - Pneumonia, unspecified organism Status: Acute Assessment and Plan: See above (3) Sinusitis: Code(s): J32.9 - Chronic sinusitis, unspecified Status: Acute Assessment and Plan: See above (4) Dementia: Code(s): F03.90 - Unspecified dementia, unspecified severity, without behavioral disturbance, psychotic disturbance, mood disturbance, and anxiety Status: Acute Assessment and Plan: Continue AriceptAnd Namenda (5) Hypertension: Code(s): I10 - Essential (primary) hypertension Status: Acute Assessment and Plan: Continue amlodipine, atenolol -blood pressures are stable with these medications (6) Electrolyte abnormality: Code(s): E87.8 - Other disorders of electrolyte and fluid balance, not elsewhere classified Status: Acute Assessment and Plan: Replace potassium (7) Atrial fibrillation: Code(s): I48.91 - Unspecified atrial fibrillation Status: Acute Assessment and Plan: Currently in sinus rhythm Not on anticoagulation as an outpatient Continue aspirin (8) Dilated gallbladder: Code(s): K82.8 - Other specified diseases of gallbladder Status: Acute Assessment and Plan: Ultrasound - Dilated gallbladder, no stones, wall thickening, or pericholecystic fluid. Mildly dilated pancreatic duct, correlate with pancreatic labs and consider MRCP of the pancreas for further evaluation. Please also refer to the report on the concurrent hepatobiliary scan. 08/20: HIDA scan was negative, not reflective of acute cholecystitis Continue Zosyn (9) Dietary counseling and surveillance: Code(s): Z71.3 - Dietary counseling and surveillance Status: Acute Assessment and Plan: Tolerating tube feeds Reglan discontinued as she has increased bowel movements Plan DVT prophylaxis -Lovenox Stress ulcer prophylaxis -PPI Nut
[2022-08-25] MEDS: methylPREDNISolone SOD SUCC 40 MG VIAL 20 MG IV PUSH (19:48)
[2022-08-25] MEDS: DONEPEZIL HCL 10 MG TABLET FEED TUBE (19:48)
[2022-08-26] VITALS (7 sets, daily range): BP systolic 143–145; BP diastolic 62–66; PULSE 88–125; RESP 16–35; TEMP 37–37.2; O2SAT 96–97
[2022-08-26] MEDS: CENTRAL LINE FLUSH 10 ML IV PUSH ×3 (05:58→20:58)
[2022-08-26 06:02] LABS: Basophils Percent Auto 0.1 % (0.2-1.2); Eosinophils Percent Auto 0.1 % (0-4.4); Hematocrit 33.4 % (37.0-47.0); Immature Granulocyte Absolute 0.25 K/mm3 (0.00-0.031); Immature Granulocyte Percent A 1.5 % (0-0.5); Lymphocytes Absolute Auto 1.28 K/mm3 (0.9-3.2); Lymphocytes Percent Auto 7.7 % (18.3-44.2); Mean Corpuscular HGB Conc 32.9 g/dl (32-36); Mean Corpuscular Hemoglobin 30.1 pg (26-34); Mean Corpuscular Volume 91.5 fl (80-100); Mean Platelet Volume 9.6 fl (7.4-10.4); Monocytes Absolute Auto 0.9 K/mm3 (0.1-0.6); Monocytes Percent Auto 5.2 % (2.6-8.5); Neutrophils Absolute Auto 14.1 K/mm3 (1.3-6.7); Neutrophils Percent Auto 85.4 % (45.5-73.1); Platelet Count Result 285 k/mm3 (150-375); Red Blood Count 3.65 M/mm3 (4.2-5.4); Red Cell Distribution Width 12.8 % (11.5-14.5); White Blood Count 16.5 K/mm3 (4.5-10.0)
[2022-08-26 06:09] LABS: Alanine Aminotransferase 108 U/L (6-35); Albumin Level 3.4 g/dL (3.5-5.1); Alkaline Phosphatase 59 U/L (38-126); Anion Gap 4 mmol/L (8-16); Aspartate Amino Transferase 40 U/L (14-36); Bilirubin,Total 0.8 mg/dL (0.2-1.3); Blood Urea Nitrogen 25 mg/dL (7-17); Calcium 8.6 mg/dL (8.4-10.2); Carbon Dioxide 28 mmol/L (22-30); Chloride 108 mmol/L (98-107); Estimated Glomerular Filt Rate > 60; Glucose 111 mg/dL (65-110); Magnesium 2.2 mg/dL (1.6-2.3); Sodium 140 mmol/L (137-145)
[2022-08-26] MEDS: IPRATROPIUM BR 0.02% INH SOLN 0.5 MG/2.5 ML VIAL INHALATION (09:02)
[2022-08-26] MEDS: ALBUTEROL SULFATE NEB 2.5 MG/3 ML INH INHALATION (09:02)
[2022-08-26] MEDS: racEPINEPHrine 2.25% NEBU SOLN 0.5 ML VIAL.NEB INHALATION (09:42)
[2022-08-26] MEDS: PANTOPRAZOLE SODIUM IV 40 MG VIAL IV PUSH (10:01)
[2022-08-26] MEDS: methylPREDNISolone SOD SUCC 40 MG VIAL 20 MG IV PUSH (10:01)
[2022-08-26] MEDS: ENOXAPARIN 40 MG/0.4 ML SYRINGE SUB-Q (10:01)
[2022-08-26] MEDS: LORazepam INJ (*CRX) 2 MG/ML VIAL 0.5 MG IV PUSH (10:06)
[2022-08-26] MEDS: DEXAMETHASONE SOD PHOS INJ 4 MG/ML VIAL IV PUSH (11:24)
[2022-08-26] MEDS: POTASSIUM CHLORIDE INJ 40 MEQ in SODIUM CHLORIDE 0.9% IV 500 ML 130 MEQ IVPB (12:02)
[2022-08-26] MEDS: MORPHINE SULFATE (*CRX) 2 MG/ML INJ 1 MG IV PUSH (12:17)
--- NOTE | 2022-08-26 12:23 | PM.IMPN ---
Progress Note: A&P Assessment and Plan (1) Acute respiratory failure with hypoxia: Code(s): J96.01 - Acute respiratory failure with hypoxia Status: Acute Assessment and Plan: Acute Respiratory failure secondary to pneumonia, pharyngitis, sinusitis, airway edema and swelling -intubated on 08/15 -08/24: Extubated No stridor, on room air with good O2 sats -continue to monitor -weaning steroids to off Treated with Zosyn Lower extremity Doppler negative for DVT 08/26 worsening respiratory status. chest x-ray is unchanged. Likely needs to be reintubated. Discussed with equal opportunity representative. Reliability Engineer discussed goals of care with family as well this a.m.. Goals of care discussion now family switched to comfort measures only. Reasonable with her age underlying dementia and ongoing issues 08/23/2022: CT soft tissue neck Wall thickening of the pharynx, consistent with inflammation. No abscess. CT soft tissue neck IMPRESSION: 1. No gas within the nasopharynx, oropharynx, pharynx or proximal trachea cephalad to the bulb of the endotracheal tube which appears largely due to fluid/mucus filling the airway. This limits assessment for any thickening of the parapharyngeal soft tissues although there is no evident peripheral expansion of the parapharyngeal soft tissues. 2. Scattered atelectasis in the lingula, right middle and bilateral lower lobes. Additional mosaic attenuation most likely additional subsegmental atelectasis with scattered air trapping related to either small airway disease or bronchiolitis. Pneumonia or pulmonary edema considered less likely. 08/15: Soft tissue neck CT IMPRESSION: 1. The palatine tonsils have decreased somewhat in size but remain obscured by metal artifact. 2. Worsening paranasal sinus disease, with nasopharyngeal fluid and mucosal enhancement/edema. New, small retropharyngeal effusion. 3. Slightly improved pulmonary opacities. 08/15Ches CTA IMPRESSION: 1. No large central pulmonary embolism. Evaluation of peripheral pulmonary arteries limited by motion artifact. 2: Patchy groundglass opacities of the mid and lower lungs, compatible with pneumonia. (2) Pneumonia: Qualifiers: Laterality: bilateral Lung location: lower lobe of lung Pneumonia type: due to unspecified organism Qualified Code(s): J18.9 - Pneumonia, unspecified organism Code(s): J18.9 - Pneumonia, unspecified organism Status: Acute Assessment and Plan: See above (3) Sinusitis: Code(s): J32.9 - Chronic sinusitis, unspecified Status: Acute Assessment and Plan: See above (4) Dementia: Code(s): F03.90 - Unspecified dementia, unspecified severity, without behavioral disturbance, psychotic disturbance, mood disturbance, and anxiety Status: Acute Assessment and Plan: Continue Aricept And Namenda (5) Hypertension: Code(s): I10 - Essential (primary) hypertension Status: Acute Assessment and Plan: Continue amlodipine, atenolol -blood pressures are stable with these medications (6) Electrolyte abnormality: Code(s): E87.8 - Other disorders of electrolyte and fluid balance, not elsewhere classified Status: Acute Assessment and Plan: Replace potassium (7) Atrial fibrillation: Code(s): I48.91 - Unspecified atrial fibrillation Status: Acute Assessment and Plan: Currently in sinus rhythm Not on anticoagulation as an outpatient Continue aspirin (8) Dilated gallbladder: Code(s): K82.8 - Other specified diseases of gallbladder Status: Acute Assessment and Plan: Ultrasound - Dilated gallbladder, no stones, wall thickening, or pericholecystic fluid. Mildly dilated pancreatic duct, correlate with pancreatic labs and consider MRCP of the pancreas for further evaluation. Please also refer to the report on the concurrent hepatobiliary scan. 08/20: HIDA scan was negative, not reflective of acute
[2022-08-26] MEDS: LORazepam INJ (*CRX) 2 MG/ML VIAL IV PUSH ×3 (13:12→22:32)
[2022-08-26] MEDS: MORPHINE SULFATE (*CRX) 2 MG/ML INJ IV PUSH ×2 (13:37→15:56)
[2022-08-26] MEDS: MORPHINE SULFATE INJ (*CRX) 50 MG in SODIUM CHLORIDE 0.9% IV 95 ML IV CONT (14:26)
--- NOTE | 2022-08-26 17:47 | PC.NURSE ---
This patient, Opal Denson, was transferred to [facility] on 08/26/22 at 1730. Personal belongings sent with patient. Report given to Di RN. Appropriate documentation sent with patient. Family at bedside.
[2022-08-27] MEDS: CENTRAL LINE FLUSH 10 ML IV PUSH (06:07)
--- NOTE | 2022-08-27 10:50 | PCNFU ---
Nutrition Follow-Up Complete: Indequate Oral Intake as related appetite as evidenced by charted intak. Goal:Meet estimated nutritional needs. Pt is not meeting goal. Pt current nutrition is Level 6 soft and bite sized per speech therapy, requires full assist. Nutrition recommendation: comfort measures Last recorded weight is 76.7 kg - up from 60.9kg, unsure of accuracy Bowel Motility: +BM last recorded 08/23 Labs Reviewed: Hgb:11, HCT:33.4, Alb:3.4, K:30, BUN:25, Cr:0.5 Meds Noted: Skin: no skin issues noted Additional Notes: Pt with worsening respiratory status, possible reintubation but family has chosen for comfort measures. Diet is in place as level 6, soft and bite sized, but pt is not alert enough to consume meals at this time. Will add Ensure compact TID with meals if pt is to become alert enough to consume. Monitor intake, wt, labs. Follow up in 3 days.
[2022-08-27] MEDS: MORPHINE SULFATE INJ (*CRX) 50 MG in SODIUM CHLORIDE 0.9% IV 95 ML IV CONT (11:14)
--- NOTE | 2022-08-27 17:35 | PM.DS ---
DS: Admitting Diagnosis Discharge Date 08/27/22 Admitting Diagnosis shortness of breath DS: Discharge Diagnosis Discharge Diagnosis (1) Acute respiratory failure with hypoxia: Code(s): J96.01 - Acute respiratory failure with hypoxia Status: Acute (2) Pneumonia: Qualifiers: Laterality: bilateral Lung location: lower lobe of lung Pneumonia type: due to unspecified organism Qualified Code(s): J18.9 - Pneumonia, unspecified organism Code(s): J18.9 - Pneumonia, unspecified organism Status: Acute (3) Sinusitis: Code(s): J32.9 - Chronic sinusitis, unspecified Status: Acute (4) Dementia: Code(s): F03.90 - Unspecified dementia, unspecified severity, without behavioral disturbance, psychotic disturbance, mood disturbance, and anxiety Status: Acute (5) Hypertension: Code(s): I10 - Essential (primary) hypertension Status: Acute (6) Electrolyte abnormality: Code(s): E87.8 - Other disorders of electrolyte and fluid balance, not elsewhere classified Status: Acute (7) Atrial fibrillation: Code(s): I48.91 - Unspecified atrial fibrillation Status: Acute (8) Dilated gallbladder: Code(s): K82.8 - Other specified diseases of gallbladder Status: Acute (9) Dietary counseling and surveillance: Code(s): Z71.3 - Dietary counseling and surveillance Status: Acute DS: Summary Hospital Course Hospital Course: this is an 81-year-old female with dementia proximal atrial fibrillation sleep apnea and hypertension who presents to the ER for evaluation of shortness of breath. She initially started to have sore throat and sinus congestion which progressed to the point where she was unable to eat and drink or take any medication due to severe pain in her throat. She ended up in the ER where workup revealed bilateral tonsillar enlargement and was discharged with Medrol Dosepak and Augmentin with instructions for ENT follow-up. She continued to have symptoms and was brought back in for re-evaluation. This time chest imaging showed findings of pneumonia and hence was admitted for further evaluation. She was noted to have audible upper airway rattling and extremely weak cough with hypoxia tachycardia and tachypnea. She was promptly intubated in the ER and was admitted to the ICU for further treatment. Acute respiratory failure with hypoxia secondary to pneumonia /pharyngitis/ upper airway edema intubated on 08/15/2022 extubated on 08/24/2022 treated with Zosyn and steroid. After extubation she had reappearance of her symptoms of upper respiratory stridor and swelling and edema. CT was done couple times during the hospital stay which showed no drainable abscess but ongoing mucosal edema / inflammation. There was need for re-intubation. Goals of care discussion was made at the time with potentially needing tracheostomy due to her ongoing /persistent upper airway edema. Family opted for comfort measures and hence comfort based treatments were initiated. She had to be placed on morphine drip to help her with her respiratory distress. She will be transferred to inpatient hospice care after discussion with the family. Time Spent with Patient Time attestation: Total time spent providing and/or coordinating discharge services: 30 minutes Exam Narrative: General: elderly female unresponsive lying in bed Lungs/Chest: mildly tachypneic upper respiratory stridor heard Extremities: No clubbing, cyanosis or edema. Warm : Mina in place Neurologic: patient unresponsive DS: Data Imaging Radiologist's impression: ITS Impressions Chest X-Ray 08/15/22 10:00 Impression: 1: Lingular infiltrates may represent atelectasis or developing pneumonia. Venous Doppler Study 08/15/22 11:29 IMPRESSION: 1: No lower extremity deep venous thrombosis. Chest CTA 08/15/22 11:54 IMPRESSION: 1. No large central pulmonary e
[2022-08-30 16:28] LABS: Pneumococcal Antigen Urine Not Detected (Not Detected)
== END 2022-08-27 12:20 | disposition hospice, inpatient (51) | DRG 207 ==
LOC: ANHED 15:34 → ANHICU 23:17 → ANH3MEDSUR 08-16 09:20 → ANHICU 08-16 09:20 → ANH3MEDSUR 08-26 17:52
PROVIDERS: Internal Medicine; Physician Assistant; Admitting Provider Internal Medicine; Emergency Provider Emergency Medicine; PCP Family Medicine; Visit Provider Internal Medicine
DX: J18.9 Pneumonia, unspecified organism (principal); J96.01 Acute respiratory failure with hypoxia; E87.8 Other disorders of electrolyte and fluid balance, not elsewhere classified; F03.90 Unspecified dementia, unspecified severity, without behavioral disturbance, psychotic disturbance, mood disturbance, and anxiety; F32.A Depression, unspecified; F41.9 Anxiety disorder, unspecified; I10 Essential (primary) hypertension; G47.33 Obstructive sleep apnea (adult) (pediatric); I48.0 Paroxysmal atrial fibrillation; J03.90 Acute tonsillitis, unspecified; J32.9 Chronic sinusitis, unspecified; K82.8 Other specified diseases of gallbladder; M19.90 Unspecified osteoarthritis, unspecified site; Z99.89 Dependence on other enabling machines and devices; Z85.828 Personal history of other malignant neoplasm of skin; Z87.442 Personal history of urinary calculi; Z90.49 Acquired absence of other specified parts of digestive tract; Z98.41 Cataract extraction status, right eye; Z98.42 Cataract extraction status, left eye; Z20.822 Contact with and (suspected) exposure to COVID-19; Z90.710 Acquired absence of both cervix and uterus; Z87.891 Personal history of nicotine dependence
CPT/HCPCS: 36415; 36569; 36600; 70490; 70491; 71045; 71046; 71260; 71275; 76705; 78226; 80053; 80202; 81001; 82375; 82805; 82948; 83050; 83605; 83735; 83880; 84100; 84478; 85025; 85027; 85380; 86738; 87040; 87070; 87081; 87205; 87449; 87636; 87637; 87651; 87899; 92610; 93005; 93971; 94002; 94003; 94640; 96361; 96365; 96375; 97162; 99284; A9270; A9537; C1751; C9113; J0131; J0295; J0330; J0360; J0456; J0696; J1100; J1650; J1940; J2060; J2250; J2270; J2543; J2704; J2765; J2920; J2930; J3010; J3370; J3480; J7030; J7040; Q9967

== ENCOUNTER 2022-08-27 12:21 | HOS | payer OTHER, MEDICARE, SELFPAY ==
--- NOTE | 2022-08-27 12:33 | PM.IMHP ---
H&P: HPI History of Present Illness Date/Time: 08/27/22 12:33 Chief Complaint: uncontrolled dyspnea Narrative: Admitted 08/15 due to sob. Intubated 08/15 and treated with antibiotics for pneumonia and pharyngeal edema w/o abscess. Extubated 08/24. Deteriorated. Family opted to forego re-intubation and instead pursue comfort care. Due to dyspnea that did not respond to prn bolus morphine, she was transitioned 08/26 to morphine drip and titrated up to 2mg/hr to achieve comfot. Review of Systems Review of Systems: ROS unobtainable: Yes unobtainable due to medical condition [facility] Past Medical History Medical History Anxiety Arthritis Atrial fibrillation Degenerative disc disease Dementia Depression Hypertension Kidney stone Obstructive sleep apnea on CPAP Pancreatitis Skin cancer Basal and squamous cell. Surgical History Surgical History History of appendectomy History of bilateral cataract extraction History of breast biopsy History of hysterectomy Status post ORIF of fracture of ankle Right. Family History Family History Mother Family history of malignant neoplasm of ovary Father Sibling Cerebrovascular accident Grandparent , cancer No problems noted. Social History Social History (Updated 08/27/22 @ 14:15 by Jose Dewitt MD) Social History: Surrogate medical decision maker: Susan Yates, daughter. Code status: DNR Smoking status: Never smoker Tobacco type: cigarettes Second hand tobacco smoke exposure: Yes Alcohol intake: never Substance use: never Substance use type: does not use Additional living arrangements comments: . Daughter, Susan, lives close and is there from 2-8pm daily with other family checking on her throughout the day. Additional occupation/education comments: [employer]. Spiritual care concerns: No Meds Home Medications and Allergies Home Medications Medication Instructions Recorded Confirmed Type atenolol 25 mg tablet 25 mg PO DAILY 07/24/19 08/15/22 History memantine 28 mg capsule 28 mg PO DAILY #30 ea 02/14/22 08/15/22 Rx sprinkle,extended release 24hr methylprednisolone 4 mg tablets in See Rx Instructions PO .COMPLEX 08/12/22 08/15/22 Rx a dose pack (Medrol (Rene)) #21 ea cefdinir 250 mg/5 mL oral 300 mg (6 mL) PO Q12H 10 days #120 08/13/22 08/15/22 Rx suspension mL aspirin 81 mg capsule 81 mg PO DAILY 08/15/22 08/15/22 History donepezil 10 mg tablet 10 mg PO DAILY 08/15/22 08/15/22 History mirtazapine 15 mg tablet 15 mg PO DAILY 08/15/22 08/15/22 History mupirocin 2 % topical ointment 1 applic topical BID PRN Dry Nasal 08/15/22 08/15/22 History Passages omeprazole 20 mg capsule,delayed 20 mg PO DAILY 08/15/22 08/15/22 History release sertraline 100 mg tablet 100 mg PO DAILY 08/15/22 08/15/22 History Allergies Allergy/AdvReac Type Severity Reaction Status Date / Time No Known Allergies Allergy Mild Verified 08/15/22 08:32 Exam Narrative: Lying in hospital bed, tachypneic, but not struggling, no grimacing, fidgeting, or moaning. Eyes open by not responsive to verbal or tactile stimuli. Sclerae nonicteric. Pharyngeal mucosa dry. Neck no jvd Chest mild tachypnea, coarse upper AW sounds, no crackles or wheezes or rhonchi Heart RR w/o audible murmur Abd BS hypoactive, soft, nontender, no mass Extr no edema MS w/o gross deformity to visual inspection Neuro CN grossly symmetric to visual inspection Assessment and Plan Assessment and plan (1) Palliative care encounter: Code(s): Z51.5 - Encounter for palliative care Status: Acute Assessment and Plan: Meets inpatient hospice criteria due to requiring continuous IV morphine for control of dyspnea Remainder of palliative regimen as
--- NOTE | 2022-08-27 13:07 | ADMGEN ---
This patient, Opal Denson, was admitted to 3 Med Surg Room 318-01. Patient/family oriented to hospital policies and general routines including ID bracelet, bed and alarms, visiting hours, pain management, procedures, bathroom and other care routines, personal items, smoking policy, room service/diet, and visiting hours. Information on how to activate the Rapid Response Team has been discussed. Patient/Family are encouraged to report perceived risks to care and to ask questions if they do not understand what they are told or what they should do.
[2022-08-27] MEDS: LORazepam INJ (*CRX) 2 MG/ML VIAL 1 MG IV PUSH (22:07)
[2022-08-28] MEDS: LORazepam INJ (*CRX) 2 MG/ML VIAL 1 MG IV PUSH ×2 (09:27→15:36)
[2022-08-28] MEDS: ARTIFICIAL TEARS OPHTH SOLN 15 ML BOTTLE EACH EYE (09:30)
[2022-08-28] MEDS: MORPHINE SULFATE (*CRX) 2 MG/ML INJ IV PUSH (10:06)
--- NOTE | 2022-08-28 11:08 | PC.NURSE ---
per JOB nurse (Hyun Connell) ok per Dr. Dewitt to increase continuous morphine drip from 2mg/HR to 4mg/HR. Also increase PRN morphine from 2mg/HR to 4mg/HR.
[2022-08-28] MEDS: MORPHINE SULFATE (*CRX) 4 MG/ML INJ IV PUSH (11:24)
--- NOTE | 2022-08-28 12:16 | PC.NURSE ---
Per verbal order by Dr. Dewitt- if patients respirations did not decrease within 30 minutes of last 4mg dose of morphine-ok to increase continuous morphine drip to 8mg/HR and ok to increase PRN morphine bolus to 8mg/HR. Order changed by this nurse at 12:17
[2022-08-28] MEDS: MORPHINE SULFATE INJ (*CRX) 50 MG in SODIUM CHLORIDE 0.9% IV 95 ML 16 MG IV CONT (12:27)
[2022-08-28] MEDS: MORPHINE SULFATE (*CRX) 4 MG/ML INJ 8 MG IV PUSH (12:42)
--- NOTE | 2022-08-28 13:30 | P.PNIM_ITS ---
Progress Note: A&P Assessment and Plan (1) Palliative care encounter: Code(s): Z51.5 - Encounter for palliative care Status: Acute Assessment and Plan: * Meets inpatient hospice criteria due to requiring continuous IV morphine for control of dyspnea * Remainder of palliative regimen as ordered * 08/28 Increased morphine to 8 mg/hr with 8mg bolus hourly prn (2) Pneumonia: Qualifiers: Laterality: bilateral Lung location: lower lobe of lung Pneumonia type: due to unspecified organism Qualified Code(s): J18.9 - Pneumonia, unspecified organism Code(s): J18.9 - Pneumonia, unspecified organism Status: Acute (3) Acute respiratory failure with hypoxia: Code(s): J96.01 - Acute respiratory failure with hypoxia Status: Acute (4) Atrial fibrillation: Code(s): I48.91 - Unspecified atrial fibrillation Status: Acute Subjective Date/time seen: 08/28/22 11:30 Interval history: Tachypneic today. Minimal grimacing earlier, but none since drip was increased. Review of Systems Review of Systems: ROS unobtainable: Yes unobtainable due to medical condition Exam Narrative: Lying in hospital bed, tachypneic, but not struggling, no grimacing, fidgeting, or moaning. Eyes open by not responsive to verbal or tactile stimuli. Sclerae nonicteric. Pharyngeal mucosa dry. Neck no jvd Chest mild tachypnea, coarse upper AW sounds, no crackles or wheezes or rhonchi Heart RR w/o audible murmur Abd BS hypoactive, soft, nontender, no mass Extr no edema MS w/o gross deformity to visual inspection Neuro CN grossly symmetric to visual inspection Objective Data Vital Signs Vital Signs: Vital Signs - 24 hr 08/27/22 14:28 Oxygen Delivery Nasal Cannula Oxygen Flow Rate 2 Intake/Output Intake/Output: Intake & Output 08/25/22 08/26/22 08/27/22 08/28/22 23:59 23:59 23:59 23:59 Output Total 250 650 Balance -250 -650 Meds/Results Medications: Active Medications Generic Name Dose Route Start Last Admin Trade Name Freq PRN Reason Stop Dose Admin Artificial Tears 0 drop 08/27/22 13:05 08/28/22 09:30 Artificial Tears Ophth Soln 15 Ml Bottle EACH EYE 1 drop Q12H PRN Administration Dry Eye(s) Bisacodyl 10 mg 08/27/22 13:05 Bisacodyl 10 Mg Suppository RECTAL DAILY PRN Constipation Glycopyrrolate 0.1 mg 08/27/22 13:05 Glycopyrrolate Inj (*Sp) 0.2 Mg/Ml Vial IV PUSH Q4H PRN secretions Morphine Sulfate 50 mg/ Sodium 100 mls @ 16 mls/hr 08/28/22 11:00 08/28/22 12:27 Chloride IV CONT 8 mg/hr .Q6H15M BLAIRE 16 mls/hr Administration 8 MG/HR Lorazepam 1 mg 08/27/22 12:20 08/28/22 09:27 Lorazepam Inj (*Crx) 2 Mg/Ml Vial IV PUSH 1 mg Q4H PRN Administration RESTLESSNESS Morphine Sulfate 8 mg 08/28/22 12:22 08/28/22 12:42 Morphine Sulfate (*Crx) 4 Mg/Ml Inj IV PUSH 8 mg Q1H PRN Administration Pain Rated 7-10 Prochlorperazine Edisylate 10 mg 08/27/22 13:05 Prochlorperazine Edisylate 10 Mg/2 Ml Vial IV PUSH Q6H PRN Nausea And Vomiting
[2022-08-28] MEDS: MORPHINE SULFATE (*CRX) 4 MG/ML INJ 12 MG IV PUSH (14:14)
--- NOTE | 2022-08-28 19:53 | PC.NURSE ---
Morphine gtt discontinued @ 1605
--- NOTE | 2022-08-31 14:54 | PM.DDS ---
Discharge Summary Date and Time Date of : 08/28/22 Time of : 16:00 Provider Pronounced By: Jenni Schaefer RN Probable Cause of Probable Cause of : ACUTE HYPOXIC RESPIRATORY FAILURE DUE TO PNEUMONIA Summary Hospital Course: Admitted to inpatient hospice service for symptom management. Medications titrated to comfort. Mrs. Denson peacefully. Additional Data Confirmation of as documented by pronouncing clinician: Pupillary Reflex, Palpable Pulses, Response to Stimuli, Heart Tones and Breath Sounds Name of Provider Notified: Dr. Dewitt Time Provider Notified: 16:44 Provider Requests Autopsy: No Maintenance Engineer Notified: Yes Date [facility] Notified of : 08/28/22 Time [facility] Notified of : 16:55
== END 2022-08-28 16:00 | disposition expired | DRG 951 ==
PROVIDERS: Admitting Provider Internal Medicine; PCP Family Medicine; Visit Provider Internal Medicine
DX: Z51.5 Encounter for palliative care (principal); J18.9 Pneumonia, unspecified organism; J96.01 Acute respiratory failure with hypoxia; M19.90 Unspecified osteoarthritis, unspecified site; F41.9 Anxiety disorder, unspecified; I48.91 Unspecified atrial fibrillation; F03.90 Unspecified dementia, unspecified severity, without behavioral disturbance, psychotic disturbance, mood disturbance, and anxiety; F32.A Depression, unspecified; G47.33 Obstructive sleep apnea (adult) (pediatric); I10 Essential (primary) hypertension; Z85.828 Personal history of other malignant neoplasm of skin; Z87.442 Personal history of urinary calculi; Z98.42 Cataract extraction status, left eye; Z98.41 Cataract extraction status, right eye; Z90.49 Acquired absence of other specified parts of digestive tract; Z90.710 Acquired absence of both cervix and uterus
CPT/HCPCS: A9270; J2060; J2270